=== PATIENT | female | born 1985 | race Caucasian/White ===

== ENCOUNTER → 2022-03-10 13:17 | Outpatient (CLI) | payer OTHER, SELFPAY ==
--- NOTE | 2022-03-10 | DI.MG.S_ITS ---
BILATERAL DIGITAL DIAGNOSTIC MAMMOGRAM 3D/2D: 03/10/2022 CLINICAL: Left breast lump. Baseline. No prior exams were available for comparison. The tissue of both breasts is extremely dense, which lowers the sensitivity of mammography. No significant masses, calcifications, or other findings are seen in either breast. IMPRESSION: INCOMPLETE: NEEDS ADDITIONAL IMAGING EVALUATION There is no abnormality seen in the right breast to correspond with the palpable abnormality and discharge from the nipple. Ultrasound to follow. Based on the Tyrer Cuzick model (a risk assessment model) the patient's lifetime risk is 9.4% and her 10 year risk is 0.8%. According to the ACR, ACS, and NCCN guidelines, an annual breast MRI exam along with mammogram is recommended if the patient's lifetime risk is 20% or greater. This exam was interpreted at Station ID: [id number]. NOTE: For mammograms, a report in lay terms will be sent to the patient. Approximately 15% of breast malignancies will not be visualized mammographically. In the management of a palpable breast mass, a negative mammogram must not discourage biopsy of a clinically suspicious lesion. Electronically Signed By: Joel Kulkarni M.D. lc/:03/10/2022 14:37:28 ACR BI-RADS Category 0: Incomplete [id number]
--- NOTE | 2022-03-10 | DI.US.S_ITS ---
ULTRASOUND OF LEFT BREAST: 03/10/2022 CLINICAL: Palpable left breast lump. Comparison is made to exam dated: 03/10/2022 mammogram - [facility]. Real-time and Doppler ultrasound of the left breast were performed. Easton scale images of the real-time examination were reviewed. Mildly dilated ducts are seen at the 9:00 position 1cm from nipple. IMPRESSION: BENIGN There is no sonographic evidence of malignancy. There is no abnormality seen in the left breast to correspond with the palpable abnormality. Mildly dilated ducts are seen at the 9:00 position 1cm from nipple. However, clinical correlation and clinical followup are recommended. Return to annual screening schedule is recommended at appropriate age. This exam was interpreted at Station ID: [id number]. Electronically Signed By: Joel Kulkarni M.D. lc/:03/10/2022 14:42:28 letter sent: Clinical Evaluation Ultrasound BI-RADS: 2 Benign
== END ==
PROVIDERS: PCP Physician Assistant Medical; Referring Provider Physician Assistant Medical; Visit Provider Physician Assistant Medical
DX: N63.42 Unspecified lump in left breast, subareolar (principal); R92.2 Inconclusive mammogram; N60.42 Mammary duct ectasia of left breast
CPT/HCPCS: 76642; 77066; G0279

== ENCOUNTER → 2024-04-05 11:09 | Outpatient (CLI) | payer OTHER, SELFPAY ==
[2024-04-05 12:38] LABS: Add Manual Diff / Slide Review NO; Basophils Absolute Auto 0 /uL (0-100); Basophils Percent Auto 0.4 % (0-2); Eosinophils Absolute Auto 100 /uL (0-450); Eosinophils Percent Auto 0.6 % (2-4); Hematocrit 36.2 % (36-46); Hemoglobin 12.2 g/dL (12.0-16.0); Lymphocytes Absolute Auto 1100 /uL (1100-4500); Lymphocytes Percent Auto 10.3 % (25-40); Mean Corpuscular HGB Conc 33.8 % (30-36); Monocytes Absolute Auto 600 /uL (0-900); Monocytes Percent Auto 5.2 % (3-14); Neutrophils Absolute Auto 9200 /uL (1500-7000); Neutrophils Percent Auto 83.5 % (50-75); Platelet Count 379 X10^3/uL (150-400); Red Blood Cell Count 4.21 X10^6/uL (4.0-5.2)
[2024-04-05 13:10] LABS: Appearance Urine UA CLEAR; Bilirubin Urine UA NEGATIVE (NEGATIVE); Color Urine UA YELLOW; Glucose Urine UA NEGATIVE (Negative); Ketones Urine UA NEGATIVE (NEGATIVE); Leukocyte Esterase Urine UA NEGATIVE (NEGATIVE); Nitrite Urine UA NEGATIVE (Negative); Occult Blood Urine UA TRACE-INTACT (Negative); Protein Urine UA NEGATIVE (Negative); Specific Gravity Urine UA <=1.005 (1.000-1.035); Urobilinogen Urine UA 0.2 E.U./dL (0.2)
[2024-04-05 13:14] LABS: pH Urine UA 6.5 (4.5-8.0)
[2024-04-06 06:36] LABS: RPR Screen Non Reactive (Non Reactive)
== END ==
PROVIDERS: Referring Provider Family Medicine; Visit Provider Family Medicine
DX: Z34.80 Encounter for supervision of other normal pregnancy, unspecified trimester (principal)
CPT/HCPCS: 36415; 80055; 81003; 86787; 86803; 86850; 86900; 86901; 87086; 87389

== ENCOUNTER → 2024-04-05 14:17 | Outpatient (CLI) | payer OTHER, SELFPAY ==
--- NOTE | 2024-04-05 14:18 | DI.US.S_ITS ---
PROCEDURE: US OB LIMITED INDICATIONS: VAGINAL BLEEDING - ASSESS PLACENTAL LOCATION AND FIBROID. OUTSIDE/PRIOR DATING DATA: Last menstrual period (LMP): 01/01/2024. LMP-based estimated date of delivery (ASTRID): 10/07/2024. First dating scan (date and location): 02/28/2024. Estimated date of delivery (ASTRID) from first dating scan: 10/03/2024 The calculations are made using the clinical ASTRID of 10/07/2024. TECHNIQUE: Real-time scanning was performed of the fetus, with image documentation. Endovaginal scanning: Not performed COMPARISON: None. FINDINGS: A single living intrauterine gestation is present. Presentation: Variable. Placenta: Placental position is posterior, low lying, 0.4 cm from the internal os. Amniotic fluid index: Subjectively normal. heart rate: 149 beats per minute. Maternal cervical canal: 3.8 cm long. Normal lower limit is 2.5 cm. Clinically estimated gestational age: 13 weeks 4 days Estimated gestational age from initial scan: 14 weeks 5 days. Other: Posterior intramural fibroid measuring 6.2 x 5.4 x 5.0 cm. Small subchorionic hemorrhage at fundus measuring 3.8 x 2.2 x 1.4 cm. IMPRESSION: Single living intrauterine at 13 weeks 4 days, ASTRID of 10/07/2024. Small subchorionic hemorrhage at the fundus measuring 3.8 x 2.2 x 1.4 cm. Posterior intramural fibroid measuring 6.2 x 5.4 x 5.0 cm. Low lying placenta. Attention on follow-up. Dictated by: Marc Schwab M.D. on 04/05/2024 at 16:42 Approved by: Marc Schwab M.D. on 04/05/2024 at 16:45
== END ==
PROVIDERS: Referring Provider Family Medicine; Visit Provider Family Medicine
DX: Z34.80 Encounter for supervision of other normal pregnancy, unspecified trimester (principal); D25.1 Intramural leiomyoma of uterus; Z3A.13 13 weeks gestation of pregnancy
CPT/HCPCS: 36415; 76815; 80055; 81003; 86787; 86803; 86850; 86900; 86901; 87086; 87389

== ENCOUNTER → 2024-05-30 11:06 | Outpatient (CLI) | payer OTHER, SELFPAY ==
--- NOTE | 2024-05-30 11:07 | DI.US.S_ITS ---
PROCEDURE: US OB >= 14 WEEKS FETUS INDICATIONS: anatomy OUTSIDE/PRIOR DATING DATA: Last menstrual period (LMP): 01/01/2024. LMP-based estimated date of delivery (ASTRID): 10/07/2024. First dating scan (date and location): 02/28/2024. Estimated date of delivery (ASTRID) from first dating scan: 10/03/2024. The calculations are made using the clinical ASTRID of 10/07/2024. TECHNIQUE: Real-time scanning was performed of the fetus, with image documentation and biometric measurements. Endovaginal scanning: Not performed COMPARISON: [facility], OB LIMITED, 04/05/2024, 14:34. FINDINGS: General: A single living intrauterine gestation is present. Presentation: Breech. Placenta: Placental position is posterior, without previa. Amniotic fluid index: 13.6 cm, normal range is 5-24 cm. Single deepest vertical pocket is 5.1 cm. heart rate: 139 beats per minute. Maternal cervical canal: 6.2 cm long. Normal lower limit is 2.5 cm. Posterior intramural fibroid measuring 5.2 x 5.1 x 4.1 cm. biometrics: Biparietal diameter: 5.0 cm, 21 weeks 1 day Head circumference: 19.2 cm, 21 weeks 3 days Abdominal circumference: 18.2 cm, 23 weeks 0 days Femur length: 3.9 cm, 22 weeks 2 days Clinically estimated gestational age: 21 weeks 3 days Composite gestational age from present scan: 22 weeks 0 days Estimated weight and percentile: 511 g, 93rd percentile. Anatomic survey: Neuro: Ventricles are non-dilated at less than 10 mm. Cisterna magna is normal at 3-11 mm. Cerebellum is normal in size and morphology. Nuchal skin fold: Normal at less than 6 mm between 14-21 weeks gestational age. Face: Nose and lips are normal. Facial profile is not well seen. Spine: No evidence for spina bifida. Heart: 4-chambered heart is present, LVOT is normal. RVOT is not well seen. Diaphragm: Diaphragm is intact. Stomach: Left-sided stomach is present. Kidneys: No hydronephrosis. Normal is less than 5 mm in 2nd trimester, less than 7 mm in 3rd trimester. Cord: 3-vessel cord has orthotopic insertion. Bladder: Normal in size. Extremities: All 4 extremities identified. Gender is not well seen. IMPRESSION: 1. [place] living intrauterine at 22 weeks 0 days based on today's ultrasound. This is concordant with the prior dating. Fetus is in the 93rd percentile for weight. 2. Normal placenta and amniotic fluid. 3. profile and RVOT are not well seen. Otherwise normal anatomic survey. Recommend follow-up OB ultrasound. We strive to produce accurate, complete, and clear reports of imaging services. To assist us in improving patient care, this report was composed using standard report templates and voice recognition software. Therefore, it may contain abnormal punctuation, insertions and/or omissions. Occasional wrong-word or sound-alike substitutions may occur. Though we review the report and make efforts to correct it, we do recommend that the report be read carefully in proper context to recognize any text inaccuracies. Dictated by: Waldo Licea M.D. on 05/30/2024 at 15:39 Approved by: Waldo Licea M.D. on 05/30/2024 at 15:45
== END ==
PROVIDERS: Referring Provider Family Medicine; Visit Provider Family Medicine
DX: Z34.82 Encounter for supervision of other normal pregnancy, second trimester (principal); Z3A.22 22 weeks gestation of pregnancy
CPT/HCPCS: 76811

== ENCOUNTER → 2024-06-07 09:51 | Outpatient (CLI) | payer OTHER, SELFPAY ==
[2024-06-07 12:30] LABS: GTT (PREG) 1 Hour PP 50gm Dose 132 mg/dL (76-139)
== END ==
PROVIDERS: Referring Provider Family Medicine; Visit Provider Family Medicine
DX: Z34.82 Encounter for supervision of other normal pregnancy, second trimester (principal); Z3A.22 22 weeks gestation of pregnancy
CPT/HCPCS: 36415; 82950

== ENCOUNTER → 2024-07-12 09:45 | Outpatient (CLI) | payer OTHER, SELFPAY ==
--- NOTE | 2024-07-12 09:45 | DI.US.S_ITS ---
PROCEDURE: US OB FOLLOW UP INDICATIONS: FOLLOW UP OUTSIDE/PRIOR DATING DATA: Last menstrual period (LMP): 01/01/2024 LMP-based estimated date of delivery (ASTRID): 10/07/2024 First dating scan (date and location): 02/28/2024 Estimated date of delivery (ASTRID) from first dating scan: 10/03/2024 The calculations are made using the working ASTRID of 10/07/2024 TECHNIQUE: Real-time scanning was performed of the fetus, with image documentation. Endovaginal scanning: Not performed COMPARISON: 04/05/2024, 05/30/2024. FINDINGS: A single living intrauterine gestation is present. Presentation: Breech Placenta: Placental position is posterior, without previa. Amniotic fluid index: 12.7 cm, normal range is 5-24 cm. Single deepest vertical pocket is 3.8 cm. heart rate: 126 beats per minute. Maternal cervical canal: Is closed and measures 4.7 cm long. Normal lower limit is 2.5 cm. Clinically estimated gestational age: 27 weeks, 4 days. There is a retroplacental intramural fibroid in posterior myometrium measures 5.5 x 4 x 4 cm in size compared to 5.2 x 5.1 x 4.2 cm in size on previous study. facial profile, four-chamber heart and left ventricular outflow tracts are visualized and are within normal limits. Right ventricular outflow tract is suboptimally seen and grossly within normal limits. IMPRESSION: 1. Single live intrauterine gestation with fetus in breech presentation. heart rate is 126 beats per minute. Normal REBA at 12.7 cm. 2. Placenta position is posterior, no placenta previa. Retroplacental intramural fibroid as above. 3. facial profile, four-chamber heart and left ventricular outflow tracts are visualized and are within normal limits. Suboptimal evaluation of right ventricular outflow tract without gross abnormality seen. Dictated by: Cesar Mccormick M.D. on 07/12/2024 at 13:23 Approved by: Cesar Mccormick M.D. on 07/12/2024 at 13:26
== END ==
PROVIDERS: Referring Provider Family Medicine; Visit Provider Family Medicine
DX: O32.1XX0 Maternal care for breech presentation, not applicable or unspecified (principal); Z3A.27 27 weeks gestation of pregnancy
CPT/HCPCS: 76816

== ENCOUNTER → 2024-08-23 11:56 | Outpatient (CLI) | payer OTHER, SELFPAY ==
--- NOTE | 2024-08-23 11:57 | DI.US.S_ITS ---
PROCEDURE: US OB FOLLOW UP INDICATIONS: growth follow up LGA OUTSIDE/PRIOR DATING DATA: The calculations are made using the working ASTRID of 10/07/2024. TECHNIQUE: Real-time scanning was performed of the fetus, with image documentation and biometric measurements. Endovaginal scanning: Performed COMPARISON: [facility], OB FOLLOW UP, 07/12/2024, 9:56. FINDINGS: General: A single living intrauterine gestation is present. Presentation: Vertex. Placenta: Placental position is posterior , without previa Amniotic fluid index: 13.3 cm, normal range is 5-24 cm. Single deepest vertical pocket is 4.5 cm. heart rate: 137 beats per minute. Maternal cervical canal: 2.3 cm long. Normal lower limit is 2.5 cm. No funneling. biometrics: Biparietal diameter: 8.5 cm, 34 weeks 3 days Head circumference: 31.3 cm, 35 weeks 1 day Abdominal circumference: 30.9 cm, 34 weeks 6 days Femur length: 6.5 cm, 33 weeks 2 days Clinically estimated gestational age: 33 weeks 4 days Composite gestational age from present scan: 34 weeks 3 days Estimated weight and percentile: 2428 g, 69th percentile Other: Not applicable. IMPRESSION: Single living intrauterine at thirty-three weeks 4 days, ASTRID 10/07/2024. Estimated weight 2428 g, 69th percentile. The cervix measures 2.3 cm, abnormal, previously 4.7 cm. No funneling of the internal os. We strive to produce accurate, complete, and clear reports of imaging services. To assist us in improving patient care, this report was composed using standard report templates and voice recognition software. Therefore, it may contain abnormal punctuation, insertions and/or omissions. Occasional wrong-word or sound-alike substitutions may occur. Though we review the report and make efforts to correct it, we do recommend that the report be read carefully in proper context to recognize any text inaccuracies. Dictated by: Marc Schwab M.D. on 08/23/2024 at 13:17 Approved by: Marc Schwab M.D. on 08/23/2024 at 13:24
== END ==
PROVIDERS: PCP Family Medicine; Referring Provider Family Medicine; Visit Provider Family Medicine
DX: O36.63X0 Maternal care for excessive fetal growth, third trimester, not applicable or unspecified (principal); Z3A.34 34 weeks gestation of pregnancy
CPT/HCPCS: 76816; 76817

== ENCOUNTER 2024-08-23 13:32 | Outpatient (CLI) | payer OTHER, SELFPAY ==
--- NOTE | 2024-08-23 14:17 | PM.OBTRLD ---
Visit Information Visit Information Date of evaluation: 08/23/24 Primary OB Provider: Beatriz Real Comments/Additional reasons for admission: 39yo at 33w4d here for NST due to shortened cervical length found incidentally on f/u u/s. Pt denies any contractions, vaginal bleeding. She is feeling baby move regularly. [facility] Medical History Cervical dysplasia Migraine with aura Meningitis spinal Surgical History History of gynecological procedure (~2010) History of oral surgery Family History Mother Substance abuse COPD (chronic obstructive pulmonary disease) Collapsed lung Broken heart syndrome Father Family estrangement Brother Rheumatoid arthritis Grandfather Skin cancer Grandmother Stroke Heart attack Sister Cervical cancer Asthma Social History marital status: unmarried,living together number of children: 1 household members: significant other lives independently: Yes caregiver/support person: Yes housing: house pets and animals: Yes (2 cats, 2 dogs) education level: high school occupational status: employed current occupational exposures/hazards: No special daniel needs: No travel history: over 6 months ago seatbelt use: always water heater temp set < 120 deg: Yes working smoke detector in home: Yes fire extinguisher in home: Yes carbon monox detector in home: Yes firearms in home: No do you feel safe at home: Yes Smoking Status: Current every day smoker Tobacco: How many years used: 21 second hand exposure: Yes (s/o smokes outdoors) alcohol intake: former substance use type: does not use during the past year weight has: increased > 10 lbs well-balanced diet: rarely or never daily servings fruits/ve-1 caffeine: Yes (aware of limits; has mostly been drinking decaf since ) Type(s) of exercise: none additional social history: Patient is still legally , although and actively seeking divorce, has a restraining order in place against her soon-to-be ex- Scooter. 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 Evaluation Evaluation Baseline heart rate: 135 Variability: Moderate (11-25) monitor accelerations: Present Monitor Decelerations: Absent Category of Tracing: Reactive Comments: No contractions Diagnosis, Plan/Disposition Final Diagnosis (1) Antepartum cervical shortening: Status: Acute Plan/Disposition Plan: 39yo at 33w4d here for NST due to shortened cervical length found incidentally on f/u u/s. Cervical length 2.3. Discussed with pt risks of shortened cervix. Recommend decreasing work activity significantly. Pt without any contractions on monitoring. Not feeling any either. Will hold off on steroids for now, plan repeat cervical length in 1 week. F/U next week in clinic. If any cramping/contractions, pt to be evaluated. OB Disposition: home
[2024-08-23 14:37] VITALS: BP 107/66
== END 2024-08-23 14:44 | disposition home or self-care (01) ==
LOC: LABOR 14:43 → OB 08-26 11:20
PROVIDERS: PCP Family Medicine; Referring Provider Family Medicine; Visit Provider Family Medicine
DX: O26.873 Cervical shortening, third trimester (principal); O36.63X0 Maternal care for excessive fetal growth, third trimester, not applicable or unspecified; Z3A.33 33 weeks gestation of pregnancy
CPT/HCPCS: 59025; 76816; 76817; G0378; G0379

== ENCOUNTER → 2024-08-30 10:17 | Outpatient (CLI) | payer OTHER, SELFPAY ==
--- NOTE | 2024-08-30 10:17 | DI.US.S_ITS ---
PROCEDURE: US OB FOLLOW UP INDICATIONS: CERVICAL LENGTH OUTSIDE/PRIOR DATING DATA: The calculations are made using the working ASTRID of 10/07/2024. TECHNIQUE: Real-time scanning was performed of the fetus, with image documentation. Endovaginal scanning: Performed COMPARISON: [facility], , OB FOLLOW UP, 08/23/2024, 12:23. FINDINGS: A single living intrauterine gestation is present. Presentation: Vertex. Placenta: Placental position is posterior, without previa. Amniotic fluid index: 13.9 cm, normal range is 5-24 cm. Single deepest vertical pocket is 6.1 cm. heart rate: 125 beats per minute. Maternal cervical canal: 1.5 cm long. Normal lower limit is 2.5 cm. Early funneling noted. Clinically estimated gestational age: 34 weeks 4 days IMPRESSION: Cervix measures 1.5 cm, with early funneling with a v-shape of the internal os. This previously measured 1.5 cm on 08/23/2024. Dictated by: Marc Schwab M.D. on 08/30/2024 at 14:47 Approved by: Marc Schwab M.D. on 08/30/2024 at 14:48
== END ==
PROVIDERS: PCP Family Medicine; Referring Provider Family Medicine; Visit Provider Family Medicine
DX: Z34.83 Encounter for supervision of other normal pregnancy, third trimester (principal); Z3A.34 34 weeks gestation of pregnancy
CPT/HCPCS: 76816

== ENCOUNTER 2024-08-30 14:07 | Outpatient (CLI) | payer OTHER, SELFPAY ==
--- NOTE | 2024-08-30 15:25 | PM.OBTRLD ---
Visit Information Visit Information Date of evaluation: 08/30/24 Primary OB Provider: Beatriz Real Comments/Additional reasons for admission: 39yo at 34w4d here for NST due to shortened cervical length. Last week 2.7, today 1.5 with minimal funneling. Pt denies any contractions, vaginal bleeding. She is feeling baby move regularly. [facility] Medical History Cervical dysplasia Migraine with aura Meningitis spinal Surgical History History of gynecological procedure (~2010) History of oral surgery Family History Mother Substance abuse COPD (chronic obstructive pulmonary disease) Collapsed lung Broken heart syndrome Father Family estrangement Brother Rheumatoid arthritis Grandfather Skin cancer Grandmother Stroke Heart attack Sister Cervical cancer Asthma Social History marital status: unmarried,living together number of children: 1 household members: significant other lives independently: Yes caregiver/support person: Yes housing: house pets and animals: Yes (2 cats, 2 dogs) education level: high school occupational status: employed current occupational exposures/hazards: No special daniel needs: No travel history: over 6 months ago seatbelt use: always water heater temp set < 120 deg: Yes working smoke detector in home: Yes fire extinguisher in home: Yes carbon monox detector in home: Yes firearms in home: No do you feel safe at home: Yes Smoking Status: Current every day smoker Tobacco: How many years used: 21 second hand exposure: Yes (s/o smokes outdoors) alcohol intake: former substance use type: does not use during the past year weight has: increased > 10 lbs well-balanced diet: rarely or never daily servings fruits/ve-1 caffeine: Yes (aware of limits; has mostly been drinking decaf since ) Type(s) of exercise: none additional social history: Patient is still legally , although and actively seeking divorce, has a restraining order in place against her soon-to-be ex- Nathan. 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 Evaluation Evaluation Baseline heart rate: 120 Variability: Moderate (11-25) monitor accelerations: Present Monitor Decelerations: Absent Category of Tracing: Reactive Diagnosis, Plan/Disposition Final Diagnosis (1) Antepartum cervical shortening: Status: Acute Plan/Disposition Plan: 39yo at 34w4d here for NST due to shortened cervical length. Cervical length now 1.5. No signs/symptoms of labor. No contractions on monitoring. FFN negative. Betamethasone x 1 given today. Pt to return in 24hrs for repeat dosing. OB Disposition: home
[2024-08-30] MEDS: BETAMETHASONE 30 MG/5 ML MDV 12 MG IM (15:50)
[2024-08-30 17:53] LABS: Fetal Fibronectin Negative
[2024-08-31 12:00] LABS: Strep Grp B PCR NEG for Grp B Strep
== END 2024-08-30 16:00 | disposition home or self-care (01) ==
LOC: LABOR 14:39 → OB 16:12
PROVIDERS: PCP Family Medicine; Referring Provider Family Medicine; Visit Provider Family Medicine
DX: O26.873 Cervical shortening, third trimester (principal); Z3A.34 34 weeks gestation of pregnancy
CPT/HCPCS: 59025; 76816; 82731; 87653; 96372; G0378; G0379; J0702

== ENCOUNTER 2024-08-31 13:48 | Outpatient (CLI) | payer OTHER, SELFPAY ==
[2024-08-31] MEDS: BETAMETHASONE 30 MG/5 ML MDV 12 MG IM (15:25)
== END 2024-08-31 15:28 | disposition home or self-care (01) ==
LOC: OB 09-04 09:31
PROVIDERS: PCP Family Medicine; Referring Provider Family Medicine; Visit Provider Student in an Organized Health Care Education/Training Program
DX: O09.523 Supervision of elderly multigravida, third trimester (principal); O99.333 Smoking (tobacco) complicating pregnancy, third trimester; F17.200 Nicotine dependence, unspecified, uncomplicated; Z3A.34 34 weeks gestation of pregnancy
CPT/HCPCS: 96372; G0378; G0379; J0702

== ENCOUNTER 2024-09-18 22:13 | Inpatient (IN) | payer OTHER, SELFPAY ==
[2024-09-18 23:38] VITALS: BP 125/73
[2024-09-18 23:53] LABS: Add Manual Diff / Slide Review NO; Basophils Absolute Auto 0 /uL (0-100); Basophils Percent Auto 0.3 % (0-2); Eosinophils Absolute Auto 100 /uL (0-450); Eosinophils Percent Auto 0.6 % (2-4); Hematocrit 37.4 % (36-46); Hemoglobin 12.4 g/dL (12.0-16.0); Lymphocytes Absolute Auto 1500 /uL (1100-4500); Lymphocytes Percent Auto 13.5 % (25-40); Mean Corpuscular HGB Conc 33.1 % (30-36); Mean Corpuscular Hemoglobin 27.2 PG (26-34); Mean Corpuscular Volume 82.2 fL (80-100); Monocytes Absolute Auto 900 /uL (0-900); Monocytes Percent Auto 7.8 % (3-14); Neutrophils Absolute Auto 8800 /uL (1500-7000); Neutrophils Percent Auto 77.8 % (50-75); Platelet Count 221 X10^3/uL (150-400); Red Blood Cell Count 4.56 X10^6/uL (4.0-5.2); Red Cell Distribution Width 14.6 % (11.6-14.8); White Blood Cell Count 11.3 X10^3/uL (4.5-11.0)
[2024-09-19] VITALS (9 sets, daily range): BP systolic 86–161; BP diastolic 55–91; PULSE 99–148; RESP 10–24; TEMP 35.8–37; O2SAT 96–98
--- NOTE | 2024-09-19 | PATH_ITS ---
[facility] Accession Number: [id number] No. of containers..01 Tissue . 01 Material submitted: . placenta - PLACENTA . 01 Diagnosis: PLACENTA: Disrupted james placenta with features of maturation consistent with third trimester gestational age. Weight: 336 grams, less than 10th percentile for gestational age of 37 weeks 2 days. membranes with acute inflammation consistent with acute chorioamnionitis (stage 2 of maternal inflammatory response DEMETRIUS), no evidence of meconium. Three vessel umbilical cord; no phlebitis, arteritis, funisitis, true knots or thrombi. Placental parenchyma with adherent blood clot. See comment. No evidence of acute or chronic villitis and infarcts. MRV 09/25/2024 1459 Local . 01 Comment: The completeness of the placenta cannot be determined. Histologic features suggestive of abruption are identified. Clinical correlation is recommended. . Please see patient's concurrent pathology report of membranes (path accession# [id number]) for additional information. . 01 Electronically signed: . Stephanie Montalvo MD, Pathologist NPI- [id number] . 01 Gross description: . Received in formalin with two patient identifiers and no site on jar, is a fragmented placenta (336 grams, 15.2 x 14.5 x 5.9 cm in aggregate). . A small amount of identifiable membranes are guzman and translucent with no thickening identified. The membrane insertion cannot be definitively determined. . The cord is 43.8 cm in length by 1.0 cm in diameter with a leftward coil and an index of approximately 2 twists per 5 cm. Definitive cord insertion cannot be determined, and sectioning reveals unremarkable trivascular architecture with no knots or lesions identified. . The surface is blue-delong with no lesions identified. . Completeness of the maternal surface cannot be determined. No discoloration or lesions are identified. The cut surface is red and spongy, and diffusely gritty. No lesions are identified. [employer] sections are submitted as follows: . A1: Membrane roll and placental end of cord. A2: Membrane roll and end of cord. A3-A5: Presumed full-thickness sections. ([id number]) /MRV 09/20/2024 1310 Local . 01 Pathologist provided ICD-10: O41.1230 . 01 CPT . 065560 Specimen Comment: A courtesy copy of this report has been sent to [phone] Performed at: [address] [address], [place], [place] [id number] MD Davion Munroe MD Phone: [phone]
[2024-09-19] MEDS: LACTATED RINGERS 1,000 ML 100 ML IV (01:28)
[2024-09-19] MEDS: CALCIUM CARBONATE 500 MG TAB 1000 MG PO (02:25)
--- NOTE | 2024-09-19 03:57 | PM.AN.REGBLK ---
[facility] <Armin Ortez CRNA - Last Filed: 09/19/24 05:42> Pre-procedure Procedure: Continuous Lumbar Epidural for L&D Attending OB provider: Beatriz Real PMH/ROS narrative: requests epidural for labor pain PSH/Anesthesia history narrative: Negative Exam narrative: See pre-anesthesia evaluation ASA Class: II Labs: Hct 37.4 % (36-46) 09/18/24 23:20 Plt Count 221 X10^3/uL (150-400) 09/18/24 23:20 Medications: Current Medications Generic Name Dose Route Start Last Admin Trade Name Freq PRN Reason Stop Dose Admin Calcium Carbonate 1,000 mg 09/18/24 23:29 09/19/24 02:25 Calcium Carbonate 500 Mg Tab PO 1,000 mg Q2HR PRN Administration Dyspepsia Carboprost Tromethamine 250 mcg 09/18/24 23:29 Carboprost 250 Mcg/Ml Ampul IM Q90M PRN Bleeding Diphenhydramine HCl 25 mg 09/19/24 03:30 Diphenhydramine 50 Mg/Ml Vial IV Q10M PRN Pruritis Ephedrine Sulfate 10 mg 09/19/24 03:30 Ephedrine 50 Mg/Ml Vial IV Q5M PRN Blood pressure decrease more than 20% of baseline. Fentanyl 50 mcg 09/18/24 23:29 Fentanyl 100 Mcg/2 Ml Inj IV Q1H PRN Pain, Moderate (4-6) Lactated Ringer's 1,000 mls @ 100 mls/hr 09/18/24 23:30 09/19/24 01:28 Lactated Ringers IV 09/19/24 09:29 100 mls/hr CONT FAUSTINO Administration Oxytocin/Lactated Ringer's 30 unit in 500 mls @ 200 mls/hr 09/18/24 23:29 Oxytocin Premix IV CONT PRN Bleeding Protocol Tranexamic Acid 1,000 mg/ 100 mls @ 600 mls/hr 09/18/24 23:29 Sodium Chloride IV NOW PRN Bleeding Oxytocin/Lactated Ringer's 30 unit in 500 mls @ 2 mls/hr 09/18/24 23:30 Oxytocin Premix IV TITRATE FAUSTINO Protocol 2 MILLIUNIT/MIN FENT 2MCG/ML BUPIV 0.125% EPI 200 mcg in 100 mls @ 8 mls/hr 09/19/24 03:30 Fentanyl/Bupiv/Ns 2mcg/Ml - 0.125% EPIDURAL CONT FAUSTINO Lactated Ringer's 1,000 mls @ 1,000 mls/hr 09/19/24 03:30 Lactated Ringers IV 09/19/24 04:29 BOLUS ONE Lidocaine HCl 20 ml 09/18/24 23:29 Lidocaine 1% 20 Ml INJ INTRA-OP PRN Post Delivery Methylergonovine Maleate 0.2 mg 09/18/24 23:29 Methylergonovine 0.2 Mg Tablet PO Q6HR PRN Heavy Bleeding Methylergonovine Maleate 0.2 mg 09/18/24 23:29 Methylergonovine 0.2 Mg/Ml Vial IM NOW PRN Bleeding Mineral Oil 30 ml 09/18/24 23:29 Mineral Oil 30 Ml Udc TOP PRN PRN Version Misoprostol 800 mcg 09/18/24 23:29 Misoprostol 200 Mcg Tablet KS NOW PRN Bleeding Misoprostol 400 mcg 09/18/24 23:29 Misoprostol 200 Mcg Tablet SL NOW PRN Bleeding Nalbuphine HCl 2.5 mg 09/19/24 03:30 Nalbuphine 20 Mg/Ml Ampul IV Q10M PRN Pruritis Naloxone HCl 0.2 mg 09/18/24 23:29 Naloxone 0.4 Mg/Ml Vial IV Q2MIN PRN Opiate Reversal Ondansetron HCl 4 mg 09/18/24 23:29 Ondansetron 4 Mg/2 Ml Inj IV Q4HR PRN Nausea And Vomiting Oxytocin 10 unit 09/18/24 23:29 Oxytocin 10 Unit/Ml Vial IM NOW PRN Bleeding Allergies: Allergies Allergy/AdvReac Type Severity Reaction Status Date / Time amoxicillin Allergy Mild Rash Verified 09/13/24 10:33 suture Allergy Intermediate Uncoded 09/13/24 10:33 Procedure Insertion date: 09/19/24 Insertion time: 02:47 Prep/Local: 1% lidocaine (Chlorhexadine prep) Interspace: L3-L4 Patient position: sitting Needle: 17 gauge Tuohy (27 gauge pencil point spinal needle for CSE) Loss of resistance with: saline AMANDA at (cm): 7 Catheter placed at SKIN (cm): 16 Catheter in SPACE (cm): 9 Sensory level: T8 Insertion: Yes CSF, No Blood, No Paresthesia with insertion, No Paresthesia with injection and No Test dose reaction Initial Medications TEST DOSE time: 02:53 BOLUS DOSE time: 02:50 BOLUS DOSE (mL): 2 BOLUS DOSE med: other (50mcg fentanyl & 0.25% bupivacaine 1ml intrathecal, then 50mcg fentanyl epidural at 0255) Infusion INFUSION: 0.125% bupivacaine and with fentanyl 2 mcg/mL Initial rate (mL/hr): 8 Subsequent interventions: Increased rate to 10ml//hr at 05:42 as patient c/o increased pain and pressure. Clinician bolus of 5ml given as well as PCEA dose of 5ml. Post-procedure Anesthesia date START: 09/19/24 Anesthesia time START: 02:40 <Monserrat Hayes CRNA - Last Filed: 09/19/24 14:23> Infusion Subsequent interventions: Increased rate to 10ml//hr at 05:42 as patient c/o increased pain and pressure. Clinician bolus of 5ml given as well as PCEA dose of 5ml. OB MD at bedside in PACU, post D&C, revealed patient was at 3.3l EBL with this PPH. Stated she was going to order 2U PRBCs. Oxytocin gtt infusing at 100cc/hr, hemabate IM given. Patient had 1 dose of TXA pre-operatively in OB, surgeon declined another dose of TXA. Patient tachycardic, stable BP, vomiting in PACU. Antiemetics ordered. Post-procedure Anesthesia date END: 09/19/24 Anesthesia time END: 12:45 Post-procedure Anesthesia Assessment: Yes Resp function: RR/sat/airway adequate, Yes Pain control adequate, Yes Temperature > 36 C and Yes Mental status appropriate
[2024-09-19] MEDS: FAMOTIDINE 20 MG/2 ML VIAL IV (06:56)
--- NOTE | 2024-09-19 08:48 | PM.OBHP.IH.1 ---
OB HPI Date/Time Date of admission: 09/18/24 Date Patient Seen: 09/19/24 Time Patient Seen: 08:30 History of Present Condition Chief complaint: Observation ASTRID Calculator Estimated Delivery Date Method Current WG Current Estimate 10/07/24 LMP (Certain) 37w 3d Other Estimates 10/03/24 Ultrasound #1 38w 0d Estimated Gestational Age (weeks): 37w3d : 5 Para: 2 Narrative: 39yo at 37w3d here with PROM, then converted into active labor without medications. Pt reports feeling a gush of fluid around 6:30pm on 09/18. She denies any vaginal bleeding. She is feeling her baby move regularly. The pts was complicated by shortened cervix found at 34 weeks incidentally. She received Betamethasone x2. No other complications with . care: good care, initiated at week # (8) and pounds weight gain (24) Dating criteria OB: LMP confirmed by 1st trimester US Ultrasounds: normal 1st trimester US and normal mid trimester US Obstetrical complications: other (shortened cervix) Medical complications OB: none Preadmission Labs Last OB Lab Results: Blood Type O Positive 09/18/24 23:20 Antibody Screen Negative 09/18/24 23:20 Hct 37.4 % (36-46) 09/18/24 23:20 Hgb 12.4 g/dL (12.0-16.0) 09/18/24 23:20 Hep Bs Antigen Negative s/c (NEGATIVE) 04/05/24 11:18 Hepatitis C Antibody Negative s/c (NEGATIVE) 04/05/24 11:18 Rubella Antibody 5.9 IU/mL (>15) L 04/05/24 11:18 VZV IgG Antibody <135 index (Immune >165) L 04/05/24 11:18 Glucose 1 Hr 50 gm 132 mg/dL (76-139) 06/07/24 11:19 Group B Strep (PCR) Neg for grp b strep 08/30/24 15:44 -: Urine: negative Genetic Screens: Cell-free DNA: Normal External Labs -: Urine: negative Prior (ies) Past Pregnancies Del. Date GA/Weeks Labor Lgth Wt Sex Route Outcome Anesthesia Place Delv Breastfeed Preg Comp Name 09/19/02 39.6 10 8 lb 13 oz Male vaginal live - full term epidural [facility] 6 months anomaly macrosomia Mariano 02/10/05 40.3 3 8 lb 2 oz Female vaginal live - full term epidural [facility] 12+ months other Luz Elena 08/07/11 6-8 elective 03/07/21 10 spontaneous Delivery Date: 09/19/02 Last Updated by: Kizzy Epperson RN malformed kidney/ureter Delivery Date: 02/10/05 Last Updated by: Kizzy Epperson RN induction->rapid delivery Delivery Date: 08/07/11 Last Updated by: Kizzy Epperson RN D&C, no complications Delivery Date: 03/07/21 Last Updated by: Kizzy Epperson RN D&C, no complications, appears to have miscarried just prior to planned termination Evaluation Evaluation Baseline heart rate: 130 Variability: Moderate (11-25) monitor accelerations: Present Monitor Decelerations: Absent Contraction Frequency (minutes): 5 Uterine Contraction Intensity: Strong/Firm Status: Category l Dilation (cm): 10 Effacement (%): 100 station: 0 PFSH Medical History Cervical dysplasia Migraine with aura Meningitis spinal Surgical History History of gynecological procedure (~2010) History of oral surgery Family History Mother Substance abuse COPD (chronic obstructive pulmonary disease) Collapsed lung Broken heart syndrome Father Family estrangement Brother Rheumatoid arthritis Grandfather Skin cancer Grandmother Stroke Heart attack Sister Cervical cancer Asthma Social History marital status: unmarried,living together number of children: 1 household members: significant other lives independently: Yes caregiver/support person: Yes housing: house pets and animals: Yes (2 cats, 2 dogs) education level: high school occupational status: employed current occupational exposures/hazards: No special daniel needs: No travel history: over 6 months ago seatbelt use: always water heater temp set < 120 deg: Yes working smoke detector in home: Yes fire extinguisher in home: Yes carbon monox detector in home: Yes firearms in home: No do you feel safe at home: Yes Smoking Status: Current every day smoker Tobacco: How many years used: 21 second hand exposure: Yes (s/o smokes outdoors) alcohol intake: former substance use type: does not use during the past year weight has: increased > 10 lbs well-balanced diet: rarely or never daily servings fruits/ve-1 caffeine: Yes (aware of limits; has mostly been drinking decaf since ) Type(s) of exercise: none additional social history: Patient is still legally , although and actively seeking divorce, has a restraining order in place against her soon-to-be ex- Scooter. Advised pt that she should have a HCPOA form drawn up just in case naming her preferred alternative decision maker so that her would never be called to make decisions for her in an emergency; provided pt with resource for free POA form; she works in a [employer] and can have it notarized at work. Meds Home Medications and Allergies Home Medications Medication Instructions Recorded Confirmed Type vitamin-ferrous sulfate tab PO 02/22/24 09/13/24 History 27 mg iron-folic acid 0.8 mg tablet Allergies Allergy/AdvReac Type Severity Reaction Status Date / Time amoxicillin Allergy Mild Rash Verified 09/13/24 10:33 suture Allergy Intermediate Uncoded 09/13/24 10:33 OB Exam Resp Effort & Inspection: normal respiratory effort Auscultation: clear to auscultation bilaterally Cardio Rate: regular rate Rhythm: regular rhythm Heart Sounds: S1 normal, S2 normal and no murmurs GI Inspection: non-distended Palpation: Yes soft and No tender Presentation: vertex Objective Labs 09/18/24 23:20 Labs: Laboratory Results - last 24 hr 09/18/24 23:20 WBC 11.3 H RBC 4.56 Hgb 12.4 Hct 37.4 MCV 82.2 MCH 27.2 MCHC 33.1 RDW 14.6 Plt Count 221 Neut % (Auto) 77.8 H Lymph % (Auto) 13.5 L [place] % (Auto) 7.8 Eos % (Auto) 0.6 L Baso % (Auto) 0.3 Neut # (Auto) 8800 H Lymph # (Auto) 1500 [place] # (Auto) 900 Eos # (Auto) 100 Baso # (Auto) 0 Blood Type O Positive Antibody Screen Negative Assessment and Plan Assessment and Plan Assessment and Plan narrative: 39yo here at 37w3d with PROM, now in active labor and full dilation. GBS negative, Rh positive. - Expectant management, anticipate - FHT reassuring - GBS negative, no prophylaxis indicated - Epidural in place for pain control - Will initiate pushing now Time-Based Coding :: [TOTAL MINUTES] spent with patient and on the chart (including review of chart, obtaining history, exam, reviewing outside data, placing orders, documenting exam and treatment plan, and counseling patient) on [DATE].
[2024-09-19] MEDS: FENT 2MCG/ML BUPIV 0.125% EPI 200 MCG/100 ML PLAST..BAG 8 MCG EPIDURAL (09:29)
[2024-09-19] MEDS: TRANEXAMIC ACID 1,000 MG in SODIUM CHLORIDE 0.9% 100 ML 600 MG IV (11:21)
[2024-09-19] MEDS: OXYTOCIN PREMIX 30 UNIT/500 ML PLAST..BAG 200 UNIT IV (11:24)
[2024-09-19] MEDS: fentaNYL 100 MCG/2 ML INJ IV (11:25)
[2024-09-19] MEDS: CEFAZOLIN 2 GM/100 ML PREMIX 100 ML IV (11:34)
[2024-09-19] MEDS: METHYLERGONOVINE 0.2 MG/ML VIAL IM (11:40)
--- NOTE | 2024-09-19 11:48 | PM.OBPN.1 ---
Subjective - OB Subjective Interval history: Consultation requested by Dr. Beatriz Real regarding retained placenta for greater than 30 minutes following spontaneous vaginal . Attempts to remove placenta has resulted in fragmentation of the placenta with residual placental material high up in the uterine cavity particularly on the patient's left side. Unable to manually remove in the center therefore will transfer patient to the operating for examination anesthesia suction curettage, and sharp curettage uterus to retained placental tissues. 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 Patient counseled regarding alternatives, risks, benefits, and potential complications associated with suction curettage of the uterus sharp curettage as needed. With full understanding of the above, written consent was executed, signed, witnessed this date Status: Acute Plan day: 0 plan OB: other (To OR for suction/sharp curettage due to retained placental tissues) Time-Based Coding :: 30 minutes spent with patient and on the chart (including review of chart, obtaining history, exam, reviewing outside data, placing orders, documenting exam and treatment plan, and counseling patient) on 09/19/2024.
--- NOTE | 2024-09-19 11:53 | PM.PREOP ---
Pre-operative Note COVID-19 COVID-19 status: Not tested Interval Note History & Physical reviewed/Exam performed by Physician: Yes Changes to H&P: No
[2024-09-19 11:57] LABS: Add Manual Diff / Slide Review NO; Basophils Absolute Auto 200 /uL (0-100); Eosinophils Absolute Auto 0 /uL (0-450); Eosinophils Percent Auto 0.3 % (2-4); Hematocrit 35.9 % (36-46); Hemoglobin 11.8 g/dL (12.0-16.0); Lymphocytes Absolute Auto 1400 /uL (1100-4500); Lymphocytes Percent Auto 8.9 % (25-40); Mean Corpuscular HGB Conc 32.8 % (30-36); Mean Corpuscular Hemoglobin 27.1 PG (26-34); Mean Corpuscular Volume 82.7 fL (80-100); Monocytes Absolute Auto 800 /uL (0-900); Monocytes Percent Auto 5.1 % (3-14); Neutrophils Absolute Auto 13300 /uL (1500-7000); Neutrophils Percent Auto 84.7 % (50-75); Platelet Count 245 X10^3/uL (150-400); Red Blood Cell Count 4.34 X10^6/uL (4.0-5.2); Red Cell Distribution Width 15.1 % (11.6-14.8); White Blood Cell Count 15.7 X10^3/uL (4.5-11.0)
[2024-09-19 12:07] LABS: Prothrombin Time 11.2 SECONDS (9.4-12.5)
--- NOTE | 2024-09-19 12:11 | SUR.OPER ---
Lithotomy on padded OR bed, head on pillow, arms secured on padded arm boards at <90 degrees abduction. Legs secured in padded yellow fins stirrups.
[2024-09-19 12:23] LABS: PTT Partial Thromboplastin Tim 31 SECONDS (25.1-36.5)
[2024-09-19] MEDS: ONDANSETRON 4 MG/2 ML INJ IV (12:43)
--- NOTE | 2024-09-19 12:45 | P.PCNOB_ITS ---
Labor & Delivery Delivery date: 09/19/24 Delivery Time: 10:48 Intrapartal Events: Prolonged 2nd Stage > 2.5 hours Cervical ripening method: none Induction method: none Delivery augmentation: pitocin Delivery monitor: external FHT and external uterine Route of delivery: Episiotomy description: None L&D Laceration Description: None Quantitative Blood Loss: 1,900 Anesthesia Type: Epidural Complications: Retained placenta hemorrhage Narrative: PROCEDURE: at 37w2d presented with PROM and was admitted to Labor and Delivery. ROM occured at 18:30 with clear fluid. She progressed into labor naturally. The patient progressed through the 1st stage over 12 hours. Pain was controlled with an epidural. The patient progressed through the 2nd stage over 3 hours and delivered a viable female infant with APGARs 8/9 at 10:48 via . The cord was cut and clamped after it stopped pulsating. Gentle traction was then applied to the cord, however the placenta did not deliver. After 30 minutes, the placenta was still not produced with gentle cord traction, despite multiple gushes of blood indicating possible separation. The cord could be felt to be avulsing. Manual extraction of the placenta was attempted, however a plane could not be found between the placenta and uterus, and attempts were discontinued. Dr Allen, NUT SORTER, was then consulted. See his note for addition al details. The pt continued to have brisk bleeding throughout the attempted extractions. She was given TXA and Methergine in addition to Pitocin. The pt was transferred to the OR for D&C. Needle and sponge counts were correct.? The vagina was inspected and no items were left in situ. PREPROCEDURE DIAGNOSIS: Intrauterine at 37w3d GBS negative RH positive POSTPROCEDURE DIAGNOSIS: Intrauterine at 37w3d, delivered Same as preprocedure hemorrhage [place] Baby 1: gender: Female Presentation: vertex Position: Right Occiput Anterior Placenta delivery description: Manual Removal and Curettage Cord Vessel Description: 3 Vessels score (1 min): 8 score (5 min): 9 weight: 5 lb 13.37 oz Plan for aftercare: Other (To the OR for D&C)
--- NOTE | 2024-09-19 12:46 | PM.GYNOP.1 ---
Operative Date/Time/Diagnoses Date of procedure: 09/19/24 Time of procedure: 11:30 Pre-op diagnosis: Retained placental tissue following spontaneous vaginal Post-op diagnosis: same Procedure & Clinicians Procedure: Procedures Operation Date: 09/19/24 15:00 Actual Procedure Side Surgeon p Exam Under Anesthesia DIRECTOR OF CREATIVE SERVICES Placenta Extraction Not Applicable Lazaro Allen MD Indications: Alize delivered spontaneously earlier this morning but even after 30 minutes and expectant management along with gentle cord traction, the placenta could not be delivered. Additional attempts to remove the placental tissue resulted in fragmentation of the placenta with some of the fragments unable to be removed vaginally therefore were proceeding to the operating room with plans to perform a suction curettage and sharp curettage as indicated for retained placental tissue following spontaneous vaginal . Surgeon: Lazaro Allen Anesthesia Type: Epidural Operative Notes Findings: The uterus is 18-20 weeks size. It is firm and normal in shape. Exploration of the endometrial cavity with ring forceps produced a small amount of additional placental tissues. Suction curettage produced additional amounts of tissue as did sharp curettage. At the completion of the procedure, the uterus was thoroughly explored manually and found to be empty and free of placental fragments. Closure Type: not applicable Specimen(s): other (Retained placental fragments) Estimated blood loss (mL): 300 Blood products transfused: none Procedure in detail: With the patient under satisfactory spinal block anesthesia in the modified dorsal lithotomy position, the patient was draped for suction curettage and sharp curettage of the uterus. A pre-surgical safety time-out was then taken in accordance with [facility] Main OR protocols. A bivalve speculum was inserted in the vagina and the anterior lip of the cervix was grasped with a ring forcep. The uterus was explored with ring forceps and a small amount of placental tissue/membranes was recovered. Suction curettage with a 12 mm suction curette was performed with production of additional amounts of tissue. Sharp curettage with a large banjo curette was then performed with gentle curettage producing additional amounts of placental fragments and membranes. A 2nd suction was performed followed by a 2nd sharp curettage. A 3rd suction curettage was performed with no additional placental tissue encountered. Manual exploration of the endometrial cavity confirmed that it was empty and free of residual placental fragments. The ring forcep was then removed from the anterior lip of the cervix, the speculum removed from the vagina, and the patient transferred to PACU for a period of observation and recovery after having tolerated the procedure well. Complications: none Post-operative Condition: stable Disposition: PACU Plan for aftercare: IM Hemabate administered. Patient will continue the Pitocin. IM Methergine and TXA had been administered within an hour of the procedure. Serial H&H determinations will be ordered and close observation for hemorrhage maintained.
[2024-09-19] MEDS: ACETAMINOPHEN 325 MG TABLET 650 MG PO ×2 (15:22→20:59)
[2024-09-19] MEDS: DERMOPLAST SPRAY 20% 60 ML 1 SPRAY TOP (15:45)
[2024-09-19] MEDS: WITCH HAZEL/GLYCERIN PADS 1 EACH TOP (15:45)
[2024-09-19] MEDS: LANOLIN OINT 7 GM 1 APPLIC TOP (15:47)
[2024-09-19] MEDS: IBUPROFEN 600 MG TABLET PO (18:39)
[2024-09-20] MEDS: IBUPROFEN 600 MG TABLET PO ×3 (01:02→16:21)
[2024-09-20] MEDS: ACETAMINOPHEN 325 MG TABLET 650 MG PO ×2 (04:51→16:21)
[2024-09-20 06:43] LABS: Add Manual Diff / Slide Review NO; Basophils Absolute Auto 200 /uL (0-100); Basophils Percent Auto 1.4 % (0-2); Eosinophils Absolute Auto 100 /uL (0-450); Eosinophils Percent Auto 0.4 % (2-4); Hematocrit 28.5 % (36-46); Hemoglobin 9.6 g/dL (12.0-16.0); Lymphocytes Absolute Auto 2100 /uL (1100-4500); Lymphocytes Percent Auto 12.8 % (25-40); Mean Corpuscular HGB Conc 33.8 % (30-36); Mean Corpuscular Hemoglobin 28.5 PG (26-34); Mean Corpuscular Volume 84.3 fL (80-100); Monocytes Absolute Auto 1000 /uL (0-900); Neutrophils Absolute Auto 12900 /uL (1500-7000); Neutrophils Percent Auto 79.4 % (50-75); Platelet Count 172 X10^3/uL (150-400); Red Blood Cell Count 3.38 X10^6/uL (4.0-5.2); Red Cell Distribution Width 15.7 % (11.6-14.8); White Blood Cell Count 16.2 X10^3/uL (4.5-11.0)
[2024-09-20] MEDS: PRENATAL VIT,CALC/IRON/FOLIC 1 TABLET 1 TAB PO (09:34)
[2024-09-20] MEDS: FERROUS SULFATE 325 MG TABLET PO (09:35)
[2024-09-20] MEDS: DOCUSATE 100 MG CAPSULE PO (09:35)
[2024-09-20] MEDS: CALCIUM CARBONATE 500 MG TAB 1000 MG PO (12:55)
--- NOTE | 2024-09-20 13:30 | PM.OBDS.1 ---
Discharge Providers Provider Date of admission: 09/18/24 22:13 Discharge Date: 09/20/24 Primary care physician: Beatriz Real MD Consults: 09/18/24 23:29 Consult to Anesthesiology Urgent Comment: Consulting Provider: Anesthesiologist Reason for consultation: Epidural 09/20/24 12:57 Consult to Tucking Machine Operator Routine Comment: Discharge provider: Beatriz Real MD Summary Hospital Course Date Patient Seen: 09/20/24 Time Patient Seen: 12:45 Diagnoses: Intrauterine at 37w3d GBS negative RH positive hemorrhage Retained placenta D&C Acute blood loss anemia Hospital Course: The pt presented with PROM, and then converted naturally into active labor. She had an epidural for pain control. She progressed to complete and after a prolonged 2nd stage had an of a viable baby girl. During the 3rd stage of labor the placenta would not delivery spontaneously. Multiple attempts for manual extraction were attempted, however the entire placenta could not be removed. The pt then underwent successful D&C. During this process, the pt had significant blood loss and received pitocin, methergine, TXA, and hemabate. Postoperatively she was given 2 units of PRBCs due to relative hypotension, vomiting, and dizziness along with the volume of blood loss. Her symptoms then improved significantly. The pt will continue on an iron supplement after discharge for her anemia. At the time of discharge she was voiding, ambulating, and passing flatus without difficulty. Her lochia was decreasing appropriately. Her pain was well controlled. She was with good latch. She will f/u in 6 weeks for check. She would like OCPs for contraception. 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 Patient counseled regarding alternatives, risks, benefits, and potential complications associated with suction curettage of the uterus sharp curettage as needed. With full understanding of the above, written consent was executed, signed, witnessed this date Time Spent with Patient Time attestation: Total time spent providing and/or coordinating discharge services: Objective Labs 09/20/24 06:25 Labs: Laboratory Results - last 24 hr 09/18/24 09/20/24 23:20 06:25 WBC 16.2 H RBC 3.38 L Hgb 9.6 L Hct 28.5 L MCV 84.3 MCH 28.5 MCHC 33.8 RDW 15.7 H Plt Count 172 Neut % (Auto) 79.4 H Lymph % (Auto) 12.8 L [place] % (Auto) 6.0 Eos % (Auto) 0.4 L Baso % (Auto) 1.4 Neut # (Auto) 91790 H Lymph # (Auto) 2100 [place] # (Auto) 1000 H Eos # (Auto) 100 Baso # (Auto) 200 H Blood Type O Positive Antibody Screen Negative Crossmatch See Detail Exam Vital Signs (past 8 hours): Oxygen Delivery Method Room Air Narrative Exam Narrative: Gen: NAD, sitting comfortably in bed, appears well CV: RRR, no murmurs Resp: clear to auscultation bilaterally Abd: soft, appropriately tender, fundus firm and below the umbilicus, nondistended Ext: no edema Discharge Plan Discharge Plan Patient Disposition: Home Discharge orders & Medications Prescriptions: New acetaminophen 325 mg Tablet 650 mg PO Q6HR PRN (Reason: Pain, Mild (1-3)) Qty: 30 0RF docusate sodium 100 mg Capsule 100 mg PO DAILY Qty: 30 0RF ferrous sulfate 325 mg (65 mg iron) Tablet 325 mg PO DAILY Qty: 30 0RF ibuprofen 600 mg Tablet 600 mg PO Q6HR PRN (Reason: Pain, Mild (1-3)) Qty: 30 0RF Continued vit-ferrous sulfat-FA 27 mg iron- 0.8 mg tablet PO Follow up/Referrals: Beatriz Real MD [Primary Care Provider] - 6 Weeks (Follow up appointment with Dr. Real on ) Diet/Activity/Treatments Diet: Diet as Tolerated and Regular Skin/Wound/Dressing Care Report to your healthcare provider any signs of infection, such as:: chills, fever, increased pain and unusual drainage Visit Report/Discharge Packet Instructions: DI for Labor and Delivery, Vaginal Stand Alone Forms: Patient Portal/API, Stroke Signs & Symptoms Discharge Data Primary Care Provider: Beatriz Real
[2024-09-20 17:30] VITALS: BP 120/73; PULSE 99; RESP 20; TEMP 36
== END 2024-09-20 17:30 | disposition home or self-care (01) | DRG 806 ==
PROVIDERS: Obstetrics & Gynecology; Admitting Provider Family Medicine; PCP Family Medicine; Referring Provider Family Medicine; Visit Provider Family Medicine
PROC: (CPT 57410; principal; 2024-09-19 15:00)
DX: O42.02 Full-term premature rupture of membranes, onset of labor within 24 hours of rupture (principal); D62 Acute posthemorrhagic anemia; O90.81 Anemia of the puerperium; O72.0 Third-stage hemorrhage; O26.873 Cervical shortening, third trimester; Z37.0 Single live birth; Z3A.37 37 weeks gestation of pregnancy
CPT/HCPCS: 36415; 36430; 59050; 59160; 59400; 84112; 85025; 85610; 85730; 86850; 86900; 86901; P9016; G0379; J0690; J2210; J2405; J2590; J3010

== ENCOUNTER → 2024-09-27 12:30 | Outpatient (CLI) | payer OTHER, SELFPAY ==
--- NOTE | 2024-09-27 12:31 | DI.US.S_ITS ---
PROCEDURE: US PELVIC COMPLETE INDICATIONS: bleeding TECHNIQUE: Real-time scanning was performed of the pelvic organs, with image documentation. Additional endovaginal scanning was necessary due to incomplete visualization of the adnexal and endometrial structures by transabdominal scanning. COMPARISON: [facility], US, US OB FOLLOW UP, 08/30/2024, 10:28. FINDINGS: Uterus: Uterus is anteverted and enlarged at 15.2 x 13.1 x 9.5. A 5.2 x 4.8 x 4.0 cm right posterior intramural fibroid is present. Heterogeneous echogenic material is seen in the endometrium measuring 44 mm in thickness. Some vascularity appears to be present within the material. Ovaries: Ovaries are not visualized. Other: No pathologic free abdominal or pelvic fluid. IMPRESSION: Large amount of heterogeneously echogenic material is seen in the endometrium that may represent blood products, although there appears to be some internal vascularity suggesting the possibility of retained products of conception. Approved by: Antione Johnson M.D. on 09/27/2024 at 13:46
== END ==
PROVIDERS: PCP Family Medicine; Referring Provider Family Medicine; Visit Provider Family Medicine
DX: O72.1 Other immediate postpartum hemorrhage (principal); D25.1 Intramural leiomyoma of uterus
CPT/HCPCS: 76856

== ENCOUNTER 2024-09-30 17:40 | Inpatient (IN) | payer OTHER, SELFPAY ==
--- NOTE | 2024-09-30 17:46 | DI.US.S_ITS ---
PROCEDURE: US PELVIC COMPLETE INDICATIONS: bleeding TECHNIQUE: Real-time scanning was performed of the pelvic organs, with image documentation. Additional endovaginal scanning was necessary due to incomplete visualization of the adnexal and endometrial structures by transabdominal scanning. COMPARISON: [facility], US, US PELVIC COMPLETE, 09/27/2024, 12:46. FINDINGS: Uterus: Uterus is anteverted and enlarged in size at 13.4 x 2.2 x 10.1 cm. The myometrium is heterogeneous. The endometrium measures 53 mm combined thickness. Areas heterogeneous echogenicity as well as increased vascularity are present. Right posterior intramural focus of heterogeneous echogenicity is present measuring 4.0 x 4.3 x 4.4 cm. Ovaries: The right ovary measures 4.6 x 2.6 x 2.4 cm, with a calculated ovarian volume of 21.2 cc. The left ovary measures 2.8 x 2.0 x 1.5 cm, with a calculated ovarian volume of 4.4 cc. The ovaries have a normal sonographic appearance. Less than 12 follicles can be seen in each ovary. No adnexal masses are seen. Other: No pathologic free abdominal or pelvic fluid. IMPRESSION: More prominent appearance increased vascularity within the endometrium heterogeneous echogenicity. Overall appearance remains most suggestive of retained products of conception. We strive to produce accurate, complete, and clear reports of imaging services. To assist us in improving patient care, this report was composed using standard report templates and voice recognition software. Therefore, it may contain abnormal punctuation, insertions and/or omissions. Occasional wrong-word or sound-alike substitutions may occur. Though we review the report and make efforts to correct it, we do recommend that the report be read carefully in proper context to recognize any text inaccuracies. Dictated by: Tequila Carolina M.D. on 09/30/2024 at 18:31 Approved by: Tequila Carolina M.D. on 09/30/2024 at 18:35
[2024-09-30 17:51] VITALS: BP 116/69; PULSE 123; RESP 20; TEMP 36.3; O2SAT 99
[2024-09-30 17:59] VITALS: BMI 30.4
[2024-09-30] MEDS: METHYLERGONOVINE 0.2 MG TABLET PO (18:15)
[2024-09-30 18:16] LABS: Add Manual Diff / Slide Review NO; Basophils Absolute Auto 100 /uL (0-100); Basophils Percent Auto 0.5 % (0-2); Eosinophils Absolute Auto 0 /uL (0-450); Eosinophils Percent Auto 0.1 % (2-4); Hemoglobin 8.5 g/dL (12.0-16.0); Lymphocytes Absolute Auto 1100 /uL (1100-4500); Mean Corpuscular HGB Conc 34.1 % (30-36); Mean Corpuscular Hemoglobin 28.5 PG (26-34); Mean Corpuscular Volume 83.4 fL (80-100); Monocytes Absolute Auto 900 /uL (0-900); Monocytes Percent Auto 6.8 % (3-14); Neutrophils Absolute Auto 11300 /uL (1500-7000); Neutrophils Percent Auto 84.6 % (50-75); Platelet Count 389 X10^3/uL (150-400); Red Cell Distribution Width 16.2 % (11.6-14.8); White Blood Cell Count 13.4 X10^3/uL (4.5-11.0)
--- NOTE | 2024-09-30 18:23 | P.HP_ITS ---
History of Present Illness History of Present Illness Date Patient Seen: 09/30/24 Time Patient Seen: 18:23 Chief complaint: POST- BLEEDING Narrative: Pt is a 39yo PPD # 11 39yo s/p complicated by retained placenta requiring D&C for removal, and significant hemorrhage s/p 2 units PRBCs here with ongoing heavy bleeding, lightheadedness, and fever at home. Her bleeding had initially slowed after discharge, but then she had a large bleed on 09/26. She was evaluated in the [facility] ED in [place]. Pelvic exam showed scant blood and her H/H was stable at 9.8/29.2. She was ultimately discharged home. The pt was then evaluated in clinic on 09/27. At that point she was still bleeding relatively heavily, soaking a medium sized pad every 2- 3hrs but without any significant blood clots. She was not having any pelvic pain, and had a temperature to 99.9F the evening of 09/26 and was feeling clammy. Ultrasound was completed that showed a large amount of blood products vs retained products of conception. PELOTA MAKER was consulted, Dr Klein, and after discussion with Dr Klein who did the initial D&C, and the patient, the decision was made to manage conservatively with PO Methergine. The pt was also started on PO Clindamycin due to concerns for infection. The pt was unfortunately unable to obtain any PO Methergine from local pharmacies. She has been taking the PO Clindamycin. She states that she had started to feel better on 09/28, however yesterday spiked a fever to 101.7F. Since then, she has been taking Tylenol regularly, and still feeling feverish before dosing. She continues to have heavy bleeding. She is changing her pad every 2 hrs. She will then have large gushes of blood that soak through her pad and pants around 2-3 times/day. She has passed clots that are approximately baseball size 3 times as well, and more frequently golf ball size and larger. She has been feeling lightheaded with intermittent palpitations. She denies any chest pain or SOB. She reports mild suprapubic tenderness, but denies any abnormal vaginal discharge beyond the bleeding. FORMERLY [facility], [facility] Medical History Cervical dysplasia Migraine with aura Meningitis spinal Surgical History History of gynecological procedure (~2010) History of oral surgery Family History Mother Substance abuse COPD (chronic obstructive pulmonary disease) Collapsed lung Broken heart syndrome Father Family estrangement Brother Rheumatoid arthritis Grandfather Skin cancer Grandmother Stroke Heart attack Sister Cervical cancer Asthma Social History marital status: unmarried,living together number of children: 1 household members: spouse, significant other and children lives independently: Yes caregiver/support person: Yes housing: house pets and animals: Yes (2 cats, 2 dogs) education level: high school occupational status: employed current occupational exposures/hazards: No special daniel needs: No travel history: over 6 months ago seatbelt use: always water heater temp set < 120 deg: Yes working smoke detector in home: Yes fire extinguisher in home: Yes carbon monox detector in home: Yes firearms in home: No do you feel safe at home: Yes Smoking Status: Current every day smoker Tobacco: How many years used: 21 second hand exposure: Yes (s/o smokes outdoors) alcohol intake: former substance use type: does not use during the past year weight has: increased > 10 lbs well-balanced diet: rarely or never daily servings fruits/ve-1 caffeine: Yes (aware of limits; has mostly been drinking decaf since ) Type(s) of exercise: none additional social history: Patient is still legally , although and actively seeking divorce, has a restraining order in place against her soon-to-be ex- Scooter. 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 Meds Home Medications and Allergies Home Medications Medication Instructions Recorded Confirmed Type vitamin-ferrous sulfate tab PO 02/22/24 09/27/24 History 27 mg iron-folic acid 0.8 mg tablet acetaminophen 325 mg tablet 650 mg (2 x 325 mg) PO Q6HR PRN 09/20/24 09/27/24 Rx Pain, Mild (1-3) #30 tabs docusate sodium 100 mg capsule 100 mg PO DAILY #30 caps 09/20/24 09/27/24 Rx ferrous sulfate 325 mg (65 mg 325 mg PO DAILY #30 tabs 09/20/24 09/27/24 Rx iron) tablet ibuprofen 600 mg tablet 600 mg PO Q6HR PRN Pain, Mild 09/20/24 09/27/24 Rx (1-3) #30 tabs clindamycin HCl 300 mg capsule 600 mg (2 x 300 mg) PO Q6H 7 days 09/27/24 Rx #56 caps Allergies Allergy/AdvReac Type Severity Reaction Status Date / Time amoxicillin Allergy Mild Rash Verified 09/27/24 12:02 suture Allergy Intermediate Uncoded 09/27/24 12:02 Exam Vital Signs (past 8 hours): - 09/30/24 17:51 Temperature 97.3 F L Pulse Rate 123 H Respiratory Rate 20 Blood Pressure 116/69 Pulse Oximetry 99 Narrative Exam Narrative: Gen: NAD, sitting comfortably in bed, appears pale and fatigued, minimally sweaty Neck: no LAD CV: RRR, no murmurs Resp: clear to auscultation bilaterally Abd: soft, tender suprapubic and RLQ without rebound/guarding/rigidity, fundus not palpable Ext: no edema Neuro: no gross deficits Objective Labs 09/30/24 18:05 Labs: Laboratory Results - last 24 hr 09/30/24 18:05 WBC 13.4 H RBC 3.00 L Hgb 8.5 L Hct 25.0 L MCV 83.4 MCH 28.5 MCHC 34.1 RDW 16.2 H Plt Count 389 Neut % (Auto) 84.6 H Lymph % (Auto) 8.0 L Grainger % (Auto) 6.8 Eos % (Auto) 0.1 L Baso % (Auto) 0.5 Neut # (Auto) 75333 H Lymph # (Auto) 1100 Grainger # (Auto) 900 Eos # (Auto) 0 Baso # (Auto) 100 Assessment & Plan Assessment & Plan narrative: Pt is a 39yo PPD # 11 39yo s/p complicated by retained placenta requiring D&C for removal, and significant hemorrhage s/p 2 units PRBCs here with ongoing heavy bleeding, lightheadedness, and documented Tmax 101.7F. The pt is tachycardic, but hemodynamically stable. H/H dropped moderately, likely hemoconcentrated as well. U/S today showing ongoing concern for retained POC. 1) Endometritis: Pt with fever, mild uterine tenderness, tachycardia. WBC count only minimally elevated, however pt has been on PO Clindamycin at home as well. Additional labs pending, however low suspicion for sepsis at this time. - CMP, Lactic acid, Blood cultures sent - IV Clindamycin and Gentamycin; pt with Amoxicillin allergy - Tylenol/Ibuprofen PRN for pain/fever, pt declines need for additional agents for pain control - Will need to be afebrile for 24hrs prior to discharge - Probiotic due to Clindamycin 2) bleeding/hemorrhage: S/P D&C the day of delivery. Ongoing heavy bleeding now with frequent large gushes of blood and passing of large clots. U/S with concern for retained POC. Did have drop in H/H, not currently at transfusion level. - PO Methergine q6hrs with hopes can pass remaining tissue - Trend H/H in the morning - Continue PO iron supplementation - Dependent on ongoing bleeding overnight, may need D&C. Will keep NPO after midnight in anticipation - Prolactin, TSH added to labs due to severity of hemorrhage including at delivery - Type and screen - Pads to be weighed for QBL 3) state: - Continue vitamin FEN: General diet until NPO at midnight DVT ppx: SCDs due to ongoing bleeding Code: Full Dispo: Pending afebrile for 24hrs, bleeding adequately controlled. Anticipate 2 midnights. Time-Based Coding :: 90 minutes spent with patient and on the chart (including review of chart, obtaining history, exam, reviewing outside data, placing orders, documenting exam and treatment plan, and counseling patient) on 09/30/24. Quality VTE Deep Vein Thrombosis/Pulmonary Embolism Present on Admission: No IH PROFEE [employer] Supervisor Document charge(s): Yes Charge Codes Initial inpatient/observation care: [id number]
[2024-09-30] MEDS: GENTAMICIN 450 MG in SODIUM CHLORIDE 0.9% 100 ML 111.25 MG IV (18:33)
[2024-09-30] MEDS: LACTATED RINGERS 1,000 ML 100 ML IV (18:42)
[2024-09-30 19:30] VITALS: BP 97/65; PULSE 96; RESP 19; TEMP 36.9; O2SAT 96
[2024-09-30 19:39] LABS: Lactate (Lactic Acid) 0.8 mmol/L (0.7-2.1)
[2024-09-30 19:40] LABS: Alanine Aminotransferase 17 IU/L (<35); Albumin 3.4 g/dL (3.5-5.0); Albumin Globulin Ratio 1.1 (1.0-2.8); Alkaline Phosphatase 130 U/L (38-126); Aspartate Aminotransferase 17 IU/L (14-36); Bilirubin Total 0.4 mg/dL (0.2-1.3); Blood Urea Nitrogen 9 mg/dL (7-17); Calcium 8.3 mg/dL (8.4-10.2); Carbon Dioxide 20 mmol/L (22-32); Chloride 103 mmol/L (98-107); Estimated Glomerular Filt Rate > 60 mL/min (>60); Globulin 3.1 g/dL (1.7-4.1); Glucose 96 mg/dL (70-100); HEMOLYSIS < 15 (0-50); Potassium 3.3 mmol/L (3.4-5.1); Sodium 134 mmol/L (137-145); Total Protein 6.5 g/dL (6.3-8.2)
[2024-09-30 19:44] LABS: Prolactin 56.1 ng/mL (3.0-18.6)
[2024-09-30 19:53] VITALS: BMI 30.4
[2024-09-30 19:59] LABS: TSH w/ Reflex to FT4 0.84 uIU/mL (0.47-4.68)
[2024-09-30] MEDS: ACETAMINOPHEN 325 MG TABLET 650 MG PO (20:26)
[2024-09-30] MEDS: CLINDAMYCIN 900 MG/50 ML PIGGYBACK 50 MG IV (20:27)
[2024-09-30] MEDS: IBUPROFEN 600 MG TABLET PO (20:29)
--- NOTE | 2024-09-30 21:14 | PC.NURSE ---
Called Dr. Real to inform her of the 159 ml blood loss with large clot at 2100 along with the 29 ml blood loss measured 15 minutes prior. Plan to continue watching over the next hour and call Dr. Real with any more large blood gushes.
[2024-09-30 23:00] VITALS: BP 96/57; PULSE 103; RESP 20; TEMP 36.8; O2SAT 97
[2024-09-30 23:08] LABS: Hematocrit 23.3 % (36-46); Hemoglobin 7.7 g/dL (12.0-16.0)
[2024-10-01] VITALS (57 sets, daily range): BP systolic 85–123; BP diastolic 48–65; PULSE 63–140; RESP 14–24; TEMP 35.3–37.8; O2SAT 19–100
--- NOTE | 2024-10-01 | PATH_ITS ---
[facility] Accession Number: [id number] No. of containers..01 Tissue . 01 Material submitted: . uterus - UTERINE CONTENTS . 01 Diagnosis: UTERINE CONTENTS: Products of conception identified. Consultation pending to exclude molar gestation (Integrated Oncology); results will be reported as an addendum. MRV 10/04/2024 0908 Local . 01 Electronically signed: . Evette Mac MD, Pathologist NPI- [id number] . 01 Gross description: . Received in formalin with two patient identifiers and uterine contents, are multiple fragments of red-guzman spongy to membranous soft tissue admixed with hemorrhagic material weighing 322 grams and aggregating to 20.3 x 13.1 x 5.0 cm. Tenacious, partially cloudy guzman mucoid material is identified adherent to a portion of tissue. No discrete lesions are identified. Tobacco Dipper sections are submitted in A1-A3. ([id number]) /MRV 10/02/2024 1838 Local . 01 Pathologist provided ICD-10: O02.1 . 01 CPT . 701545 Specimen Comment: A courtesy copy of this report has been sent to [facility] Pathology Performed at: 01 [facility] [address] [address], [place], [place] [id number] MD Davion Munroe MD Phone: [phone]
[2024-10-01] MEDS: METHYLERGONOVINE 0.2 MG TABLET PO ×3 (00:08→12:13)
[2024-10-01] MEDS: SODIUM CHLORIDE 0.9% 250 ML 21 ML IV (00:08)
[2024-10-01] MEDS: CLINDAMYCIN 900 MG/50 ML PIGGYBACK 50 MG IV ×4 (02:36→20:12)
[2024-10-01] MEDS: ACETAMINOPHEN 325 MG TABLET 650 MG PO ×2 (03:37→10:35)
[2024-10-01] MEDS: IBUPROFEN 600 MG TABLET PO ×2 (03:38→10:34)
[2024-10-01 06:07] LABS: Add Manual Diff / Slide Review NO; Basophils Absolute Auto 100 /uL (0-100); Basophils Percent Auto 0.8 % (0-2); Eosinophils Absolute Auto 100 /uL (0-450); Eosinophils Percent Auto 0.5 % (2-4); Hematocrit 24.1 % (36-46); Hemoglobin 8.2 g/dL (12.0-16.0); Lymphocytes Absolute Auto 600 /uL (1100-4500); Lymphocytes Percent Auto 6.3 % (25-40); Mean Corpuscular HGB Conc 34.1 % (30-36); Mean Corpuscular Hemoglobin 28.5 PG (26-34); Mean Corpuscular Volume 83.4 fL (80-100); Monocytes Absolute Auto 600 /uL (0-900); Monocytes Percent Auto 6.1 % (3-14); Neutrophils Absolute Auto 8900 /uL (1500-7000); Neutrophils Percent Auto 86.3 % (50-75); Platelet Count 315 X10^3/uL (150-400); Red Blood Cell Count 2.88 X10^6/uL (4.0-5.2); Red Cell Distribution Width 16.1 % (11.6-14.8); White Blood Cell Count 10.3 X10^3/uL (4.5-11.0)
[2024-10-01] MEDS: FERROUS SULFATE 325 MG TABLET PO (07:56)
[2024-10-01] MEDS: LACTATED RINGERS 1,000 ML 100 ML IV ×2 (07:57→20:12)
--- NOTE | 2024-10-01 07:58 | PM.PN.IH.1 ---
Subjective Subjective Date Patient Seen: 10/01/24 Time Patient Seen: 07:59 Interval history: Pt reports some improvement in her lightheadedness with movement/standing. She continues to feel sweaty this morning, but had no documented fevers overnight. She was taking Tylenol regularly, however. She continues to feel weak. Overnight, the pt experienced two larger gushes of blood with clots. Her QBL overnight was 437mL, with majority lost prior to 11pm. She then had another large gush of blood with clot this morning for 148mL loss of blood. Exam Vital Signs (past 8 hours): - 10/01/24 00:11 10/01/24 00:28 10/01/24 01:28 Temperature 98.5 F 98.0 F 97.7 F Pulse Rate 102 H 103 H 92 H Respiratory Rate 21 17 18 Blood Pressure 101/53 L 97/52 L 104/63 Pulse Oximetry 10/01/24 01:48 10/01/24 05:49 10/01/24 07:51 Temperature 98.2 F 98.1 F 97.8 F Pulse Rate 90 93 H 105 H Respiratory Rate 17 16 18 Blood Pressure 95/49 L 93/51 L 97/65 Pulse Oximetry 98 99 Narrative Exam Narrative: Gen: NAD, sitting comfortably in bed, appears pale still CV: regular rhythm, tachycardic, no murmurs Resp: clear to auscultation bilaterally Abd: soft, mild tenderness RUQ without rebound/guarding/rigidity, normoactive bowel sounds Ext: no edema Objective Labs 10/01/24 05:53 09/30/24 19:05 Labs: Laboratory Results - last 24 hr 09/30/24 09/30/24 09/30/24 18:05 18:44 19:05 WBC 13.4 H RBC 3.00 L Hgb 8.5 L Hct 25.0 L MCV 83.4 MCH 28.5 MCHC 34.1 RDW 16.2 H Plt Count 389 Neut % (Auto) 84.6 H Lymph % (Auto) 8.0 L [place] % (Auto) 6.8 Eos % (Auto) 0.1 L Baso % (Auto) 0.5 Neut # (Auto) 77775 H Lymph # (Auto) 1100 [place] # (Auto) 900 Eos # (Auto) 0 Baso # (Auto) 100 Sodium 134 L Potassium 3.3 L Chloride 103 Carbon Dioxide 20 L BUN 9 Creatinine 0.60 Estimated GFR > 60 BUN/Creatinine Ratio 15.0 Glucose 96 Lactate 0.8 Calcium 8.3 L Total Bilirubin 0.4 AST 17 ALT 17 Alkaline Phosphatase 130 H Total Protein 6.5 Albumin 3.4 L Globulin 3.1 Albumin/Globulin Ratio 1.1 TSH 0.84 Prolactin 56.1 H Blood Type O Positive Antibody Screen Negative Crossmatch See Detail 09/30/24 10/01/24 22:56 05:53 WBC 10.3 RBC 2.88 L Hgb 7.7 L 8.2 L Hct 23.3 L 24.1 L MCV 83.4 MCH 28.5 MCHC 34.1 RDW 16.1 H Plt Count 315 Neut % (Auto) 86.3 H Lymph % (Auto) 6.3 L [place] % (Auto) 6.1 Eos % (Auto) 0.5 L Baso % (Auto) 0.8 Neut # (Auto) 8900 H Lymph # (Auto) 600 L [place] # (Auto) 600 Eos # (Auto) 100 Baso # (Auto) 100 Sodium Potassium Chloride Carbon Dioxide BUN Creatinine Estimated GFR BUN/Creatinine Ratio Glucose Lactate Calcium Total Bilirubin AST ALT Alkaline Phosphatase Total Protein Albumin Globulin Albumin/Globulin Ratio TSH Prolactin Blood Type Antibody Screen Crossmatch [facility] Medical History Cervical dysplasia Migraine with aura Meningitis spinal Surgical History History of gynecological procedure (~2010) History of oral surgery Family History Mother Substance abuse COPD (chronic obstructive pulmonary disease) Collapsed lung Broken heart syndrome Father Family estrangement Brother Rheumatoid arthritis Grandfather Skin cancer Grandmother Stroke Heart attack Sister Cervical cancer Asthma Social History marital status: unmarried,living together number of children: 1 household members: spouse, significant other and children lives independently: Yes caregiver/support person: Yes housing: house pets and animals: Yes (2 cats, 2 dogs) education level: high school occupational status: employed current occupational exposures/hazards: No special daniel needs: No travel history: over 6 months ago seatbelt use: always water heater temp set < 120 deg: Yes working smoke detector in home: Yes fire extinguisher in home: Yes carbon monox detector in home: Yes firearms in home: No do you feel safe at home: Yes Smoking Status: Current every day smoker Tobacco: How many years used: 21 second hand exposure: Yes (s/o smokes outdoors) alcohol intake: former substance use type: does not use during the past year weight has: increased > 10 lbs well-balanced diet: rarely or never daily servings fruits/ve-1 caffeine: Yes (aware of limits; has mostly been drinking decaf since ) Type(s) of exercise: none additional social history: Patient is still legally , although and actively seeking divorce, has a restraining order in place against her soon-to-be ex- Scooter. 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 Assessment & Plan Assessment & Plan narrative: Pt is a 39yo PPD # 12 complicated by retained placenta requiring D&C for removal, and significant hemorrhage s/p 2 units PRBCs here with ongoing heavy bleeding, lightheadedness, and documented Tmax 101.7F at home. U/S yesterday showing ongoing concern for retained POC. 1) Endometritis: Pt with fever, mild uterine tenderness, tachycardia at presentation. No evidence of sepsis. Afebrile overnight on regular Tylenol dosing. - F/U blood cultures - IV Clindamycin and Gentamycin; pt with Amoxicillin allergy - Tylenol/Ibuprofen PRN for pain/fever, pt declines need for additional agents for pain control - Will need to be afebrile for 24hrs prior to discharge - Probiotic due to Clindamycin 2) bleeding/hemorrhage: S/P D&C the day of delivery. Ongoing heavy bleeding now with frequent large gushes of blood and passing of large clots. U/S with concern for retained POC. Did have drop in H/H, received 1 unit PRBCs overnight with minimal improvement in H/H. - PO Methergine q6hrs with hopes can pass remaining tissue - Continue to trend H/H - Continue PO iron supplementation, may need iron infusion - Plan on D&C today - Pads to be weighed for QBL 3) state: - Continue vitamin FEN: NPO pending D&C DVT ppx: SCDs due to ongoing bleeding Code: Full Dispo: Pending afebrile for 24hrs, bleeding adequately controlled. Plan for at least one additional night. Time-Based Coding :: [TOTAL MINUTES] spent with patient and on the chart (including review of chart, obtaining history, exam, reviewing outside data, placing orders, documenting exam and treatment plan, and counseling patient) on [DATE]. 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
[2024-10-01] MEDS: LACTOBACILLUS ACIDOPHILUS TABLET 1 EACH PO (10:34)
--- NOTE | 2024-10-01 12:55 | PM.PREOP ---
Pre-operative Note Interval Note History & Physical reviewed/Exam performed by Physician: Yes Changes to H&P: No H&P completed within 30 days and has changed as indicated here:: 39yo PPD #12 readmitted for persistent bleeding and concern for endometritis. She was started on IV gent/clinda last night. Continues to pass occasional clots, with moderate flow. At this point, I counseled and consented her for repeat suction D&C given that she has failed conservative management. We reviewed the risk/benefit of the procedure, including but not limited to uterine bleeding requiring medications, surgical maneuvers, or therapeutic hysterectomy for life-threatening bleeding, and uterine perforation with injury to intra-abdominal structures. We will sign the surgical consent prior to moving to the OR. All her and her partner's questions were answered at this time.
--- NOTE | 2024-10-01 14:51 | SUR.OPER ---
Lithotomy on padded OR bed, head on pillow, arms secured on padded arm boards at <90 degrees abduction. Legs secured in padded yellow fins stirrups.
[2024-10-01] MEDS: TRANEXAMIC ACID 1,000 MG in SODIUM CHLORIDE 0.9% 100 ML 200 MG IV (14:52)
[2024-10-01] MEDS: METHYLERGONOVINE 0.2 MG/ML VIAL IM (15:15)
[2024-10-01 15:46] LABS: Hematocrit 25.4 % (36-46); Hemoglobin 8.4 g/dL (12.0-16.0); Mean Corpuscular HGB Conc 33.1 % (30-36); Mean Corpuscular Volume 87.8 fL (80-100); Platelet Count 342 X10^3/uL (150-400); Red Cell Distribution Width 16.8 % (11.6-14.8); White Blood Cell Count 16.1 X10^3/uL (4.5-11.0)
--- NOTE | 2024-10-01 15:54 | PM.OP.1 ---
Operative Date/Time/Diagnoses Date of procedure: 10/01/24 Time of procedure: 14:45 Pre-op diagnosis: Persistent bleeding Endometritis Post-op diagnosis: same (retained products of conception; hemorrhage) Procedure & Clinicians Procedure: Suction dilation and curettage Same procedure as scheduled: Yes Indications: 39yo 12 days after complicated by retained placenta, PPH, and D&C, now with persistent bleeding and endometritis. She was noted to have ultrasound findings consistent with retained products of conception, so given her persistent bleeding despite conservative management, she was counseled and consented for repeat suction D&C. Surgeon: Lucinda Klein Click Yes if Unassisted: Yes Anesthesia Type: General Operative Notes Findings: Moderate amount of placental tissue and products of conception evacuated from the uterus. Brisk uterine bleeding was encountered throughout the case, and she was given 1g TXA, 1 dose of methergine, and transfused 2 units of pRBCs. A Lois uterine vacuum system was applied. Closure Type: not applicable Specimen(s): other (uterine contents) Applied: catheter and device(s) (Lois system) Estimated Blood Loss (mL): 2,500 Blood products transfused: packed red blood cells Procedure in detail: The risks, benefits, indications and alternatives of the procedure were reviewed with the patient and informed consent was obtained. The pt was taken to the operating room where general anesthesia was obtained without difficulty. The pt was then placed in the low lithotomy position using gel-padded Oscar Stirrups. SCDs were placed bilaterally for VTE prophylaxis. The pt was then prepped and draped in the sterile fashion. A sterile speculum was placed in the patient?s vagina and the cervix was visualized.? A single tooth tenaculum was used to grasp the anterior lip of the cervix. The cervix was already dilated about 3-4cm. A 12mm curved suction catheter was then introduced into the uterine cavity and gently advanced to the uterine fundus with ultrasound visualization (done by Dr. Real). The suction device was then activated and the catheter was rotated to clear the uterus of products of conception. Several passes were performed with a moderate amount of tissue obtained, however there was tissue seen on ultrasound that was unable to be suctioned out. A sharp curettage was then performed to try to break up this adherent tissue, which was unsuccessful. During this time, patient was bleeding heavily, and she was given the above medications with blood called for. I was able to use my hand to get to the top of the uterine fundus and manually remove several pieces of tissue that appeared like placenta. After most of the tissue was felt to be removed, ultrasound was used again to ensure most of the tissue was removed. The suction catheter was then placed in the uterus again, and the remaining tissue was visualized on ultrasound to be removed. All tissue was sent to pathology for review. Ultrasound at the end confirmed that the retained tissue was removed. The uterus was still briskly bleeding, despite the above medications and bimanual compression, thus a Lois vacuum system was called for. The Lois was able to be manually introduced into the uterine cavity, and the cervical balloon was inflated to 60cc. The device was then applied to suction, and the bleeding through the tubing was minimal. A rapp catheter was placed in her bladder while the Lois is in place. At the completion of the case the sponge and needle counts were correct x 2. The patient was noted to be hypotensive and tachycardic during the case, and was given fluid resuscitation as well as blood products (see anesthesia record for details). She was monitored in the OR after Lois placement for another 30min, and deemed to be stable for transfer to the PACU. Complications: other ( hemorrhage) Post-operative Condition: stable Disposition: PACU Plan for aftercare: Plan for transfer back to the center for monitoring, unless patient needs blood pressure support, then she may need to be transferred to the ICU. Consider discontinuing the Lois vacuum system at 3hrs.
[2024-10-01 15:55] LABS: INR 1.2 (0.9-1.3); Prothrombin Time 13.6 SECONDS (9.4-12.5)
[2024-10-01 15:56] LABS: Fibrinogen 352 mg/dL (238-498)
[2024-10-01 15:58] LABS: PTT Partial Thromboplastin Tim 34 SECONDS (25.1-36.5)
[2024-10-01] MEDS: ONDANSETRON 4 MG/2 ML INJ IV (16:03)
[2024-10-01] MEDS: MEPERIDINE 50 MG/ML INJ 25 MG IV (17:15)
[2024-10-01] MEDS: PHENYLEPHRINE 20,000 MCG in DEXTROSE 5% IN WATER 250 ML 16.9 MCG IV (17:44)
[2024-10-01] MEDS: fentaNYL 100 MCG/2 ML INJ IV (17:54)
--- NOTE | 2024-10-01 18:30 | DI.RAD.S_ITS ---
PROCEDURE: XR CHEST 1V INDICATIONS: Central line placement TECHNIQUE: One view of the chest was acquired. COMPARISON: None. FINDINGS: Surgical changes and devices: Right IJ central venous catheter tip projects over the lower SVC. Lungs and pleura: Lungs are clear. No pleural effusions or pneumothorax. Mediastinum: Mediastinal contours appear normal. Heart size is normal. Bones and chest wall: No suspicious bony lesions. Overlying soft tissues appear unremarkable. IMPRESSION: Right IJ central venous catheter tip projects over the lower SVC. Dictated by: Marc Schwab M.D. on 10/01/2024 at 18:59 Approved by: Marc Schwab M.D. on 10/01/2024 at 18:59
--- NOTE | 2024-10-01 18:42 | PM.PROC.1 ---
Procedures Date/Time Date of procedure: 10/01/24 Time of procedure: 18:07 Central Line Placement Time out performed: Yes (2021) Patient placed on monitor/pulse ox: Yes MD prep: mask, gown, gloves and other (hair cover) Central line prep: Chlorhexidine scrub Local anesthesia used: lidocaine 1% Amount of anesthesia used (ml): 5 Ultrasound used for placement: Yes Central line lumen inserted: triple Post procedure: sutured in place, good blood return, all ports aspirated, flushed, capped and sterile dressing applied Post procedure x-ray: tip of catheter in good position and no pneumothorax seen Patient tolerated procedure: well and no complications Additional comments: Start 180 End 183
--- NOTE | 2024-10-01 18:46 | PM.EVENT ---
Event Note Date Patient Seen: 10/01/24 Time Patient Seen: 18:46 Event Note (Rapid Response, Code, or fall): The Lois vacuum system was removed from the uterus at this time. Minimal vaginal bleeding was noted. -pt to the ICU for monitoring overnight
--- NOTE | 2024-10-01 18:53 | PM.CN ---
History of Present Illness Consult details Date Patient Seen: 10/01/24 Time Patient Seen: 18:15 Chief complaint: POST- BLEEDING Narrative: The patient was seen in consultation. She was a 39-year-old 0-3. She was day 11. Her delivery was complicated by hemorrhage and retained placenta. Today she had D&C for her placenta removal and this is complicated by hemorrhage. She lost over 2 L of blood. She was fluid resuscitated and given 3 units of packed cells, 1 of cryoprecipitate, and 2 of FFP. A uterine tamponade device was placed. The patient had persistent hypotension, and Reji-Synephrine was infused. A central venous catheter was placed in the right IJ at approximately 6:00 p.m. by anesthesia. The patient improved clinically and I saw her in the PACU. She was doing well with a blood pressure of 90/50. She does have chronic hypotension with systolic pressures near 90. Her uterine tamponade devices removed and there was no evidence of bleeding. She has a very low dose of Reji-Synephrine infusing. She denies any dyspnea, chest pain, or abdominal pain. She was mentating normally. Meds Home Medications and Allergies Home Medications Medication Instructions Recorded Confirmed Type vitamin-ferrous sulfate 1 tab PO DAILY 02/22/24 09/30/24 History 27 mg iron-folic acid 0.8 mg tablet acetaminophen 325 mg tablet 650 mg (2 x 325 mg) PO Q6HR PRN 09/20/24 09/30/24 Rx Pain, Mild (1-3) #30 tabs docusate sodium 100 mg capsule 100 mg PO DAILY #30 caps 09/20/24 09/30/24 Rx ferrous sulfate 325 mg (65 mg 325 mg PO DAILY #30 tabs 09/20/24 09/30/24 Rx iron) tablet ibuprofen 600 mg tablet 600 mg PO Q6HR PRN Pain, Mild 09/20/24 09/30/24 Rx (1-3) #30 tabs clindamycin HCl 300 mg capsule 600 mg (2 x 300 mg) PO Q6H 7 days 09/27/24 09/30/24 Rx #56 caps Allergies Allergy/AdvReac Type Severity Reaction Status Date / Time amoxicillin Allergy Mild Rash Verified 09/27/24 12:02 suture Allergy Intermediate Uncoded 09/27/24 12:02 Review of Systems Review of Systems Narrative: All else reviewed and otherwise unremarkable except as noted in the history and physical. Exam Vital Signs (past 8 hours): - 10/01/24 12:16 10/01/24 12:20 10/01/24 12:56 Temperature 100.1 F H 99.1 F 98.7 F Pulse Rate 99 H Respiratory Rate 18 Blood Pressure 95/54 L Pulse Oximetry 96 Oxygen Delivery Method Oxygen Flow Rate 10/01/24 15:57 10/01/24 16:01 10/01/24 16:05 Temperature 97.4 F L Pulse Rate 140 H 140 H 132 H Respiratory Rate 15 14 20 Blood Pressure 87/54 L 105/52 L 93/48 L Pulse Oximetry 93 96 97 Oxygen Delivery Method Room Air Room Air Room Air Oxygen Flow Rate 10/01/24 16:10 10/01/24 16:11 10/01/24 16:15 Temperature 97.4 F L Pulse Rate 127 H 127 H 123 H Respiratory Rate 24 22 14 Blood Pressure 87/51 L 87/51 L 86/51 L Pulse Oximetry 97 97 Oxygen Delivery Method Room Air Room Air Oxygen Flow Rate 10/01/24 16:20 10/01/24 16:25 10/01/24 16:30 Temperature 97.0 F L Pulse Rate 114 H 111 H 108 H Respiratory Rate 15 16 15 Blood Pressure 85/53 L 91/55 L 87/53 L Pulse Oximetry 98 98 98 Oxygen Delivery Method Room Air Room Air Room Air Oxygen Flow Rate 10/01/24 16:31 10/01/24 16:35 10/01/24 16:40 Temperature 97.0 F L Pulse Rate 110 H 106 H 105 H Respiratory Rate 16 17 19 Blood Pressure 87/53 L 97/56 L 88/51 L Pulse Oximetry 98 99 Oxygen Delivery Method Room Air Room Air Oxygen Flow Rate 10/01/24 16:45 10/01/24 16:50 10/01/24 16:55 Temperature 97.6 F Pulse Rate 104 H 96 H 105 H Respiratory Rate 17 17 15 Blood Pressure 85/54 L 116/49 L 123/54 L Pulse Oximetry 99 100 96 Oxygen Delivery Method Room Air Room Air Room Air Oxygen Flow Rate 10/01/24 17:00 10/01/24 17:02 10/01/24 17:05 Temperature 98.7 F Pulse Rate 108 H 112 H 117 H Respiratory Rate 19 21 18 Blood Pressure 113/49 L 113/49 L 92/56 L Pulse Oximetry 100 100 Oxygen Delivery Method Room Air Room Air Oxygen Flow Rate 10/01/24 17:06 10/01/24 17:11 10/01/24 17:17 Temperature 98.2 F Pulse Rate 114 H 117 H 63 Respiratory Rate 18 20 20 Blood Pressure 87/50 L 91/59 L 88/48 L Pulse Oximetry 99 100 Oxygen Delivery Method Room Air Room Air Oxygen Flow Rate 10/01/24 17:17 10/01/24 17:20 10/01/24 17:21 Temperature Pulse Rate 114 H 114 H 104 H Respiratory Rate 20 20 19 Blood Pressure 88/48 L 102/59 L 97/62 Pulse Oximetry 100 100 100 Oxygen Delivery Method Room Air Room Air Room Air Oxygen Flow Rate 10/01/24 17:26 10/01/24 17:46 10/01/24 18:02 Temperature Pulse Rate 112 H 117 H 109 H Respiratory Rate 17 15 17 Blood Pressure 95/58 L 93/54 L 91/54 L Pulse Oximetry 100 99 98 Oxygen Delivery Method Room Air Simple Mask Oxygen Flow Rate 6 10/01/24 18:06 10/01/24 18:12 10/01/24 18:18 Temperature Pulse Rate 97 H 94 H 92 H Respiratory Rate 19 20 Blood Pressure 88/52 L 87/50 L 94/54 L Pulse Oximetry 100 19 L 99 Oxygen Delivery Method Room Air Room Air Oxygen Flow Rate 99 10/01/24 18:27 10/01/24 18:43 Temperature Pulse Rate 97 H 100 H Respiratory Rate 20 16 Blood Pressure 89/53 L 94/57 L Pulse Oximetry 99 99 Oxygen Delivery Method Room Air Simple Mask Oxygen Flow Rate 6 Oxygen Delivery Method Simple Mask Oxygen Flow Rate 6 Narrative Exam Narrative: NAD, alert and oriented, fluent speech. Tearful. Normocephalic skull, EOMI, anicteric sclera, symmetric pupils. Oropharynx unremarkable, no droop. Neck supple, midline trachea, no adenopathy. Lungs clear, normal rate and effort. Heart regular, no murmur gallop or rub. Abdomen is soft, non distended and non tender. Extremities are free of edema. Skin is free of rash or lesions. Joints are not swollen or deformed. Judgment appears to be normal. Objective Imaging Chest x-ray: Radiologist's impression: Right IJ CVL is in the right atrium, no pneumothorax. Labs 10/01/24 15:33 09/30/24 19:05 Labs: Laboratory Results - last 24 hr 09/30/24 09/30/24 09/30/24 18:05 18:44 19:05 WBC RBC Hgb Hct MCV MCH MCHC RDW Plt Count Neut % (Auto) Lymph % (Auto) [place] % (Auto) Eos % (Auto) Baso % (Auto) Neut # (Auto) Lymph # (Auto) [place] # (Auto) Eos # (Auto) Baso # (Auto) PT INR APTT Fibrinogen Sodium 134 L Potassium 3.3 L Chloride 103 Carbon Dioxide 20 L BUN 9 Creatinine 0.60 Estimated GFR > 60 BUN/Creatinine Ratio 15.0 Glucose 96 Lactate 0.8 Calcium 8.3 L Total Bilirubin 0.4 AST 17 ALT 17 Alkaline Phosphatase 130 H Total Protein 6.5 Albumin 3.4 L Globulin 3.1 Albumin/Globulin Ratio 1.1 TSH 0.84 Prolactin 56.1 H Blood Type O Positive Antibody Screen Negative Crossmatch See Detail 09/30/24 10/01/24 10/01/24 22:56 05:53 15:33 WBC 10.3 16.1 H D RBC 2.88 L 2.90 L Hgb 7.7 L 8.2 L 8.4 L Hct 23.3 L 24.1 L 25.4 L MCV 83.4 87.8 D MCH 28.5 29.0 MCHC 34.1 33.1 RDW 16.1 H 16.8 H Plt Count 315 342 Neut % (Auto) 86.3 H Lymph % (Auto) 6.3 L [place] % (Auto) 6.1 Eos % (Auto) 0.5 L Baso % (Auto) 0.8 Neut # (Auto) 8900 H Lymph # (Auto) 600 L [place] # (Auto) 600 Eos # (Auto) 100 Baso # (Auto) 100 PT 13.6 H INR 1.2 APTT 34 Fibrinogen 352 Sodium Potassium Chloride Carbon Dioxide BUN Creatinine Estimated GFR BUN/Creatinine Ratio Glucose Lactate Calcium Total Bilirubin AST ALT Alkaline Phosphatase Total Protein Albumin Globulin Albumin/Globulin Ratio TSH Prolactin Blood Type Antibody Screen Crossmatch [facility] Medical History Cervical dysplasia Migraine with aura Meningitis spinal Surgical History History of gynecological procedure (~2010) History of oral surgery Family History Mother Substance abuse COPD (chronic obstructive pulmonary disease) Collapsed lung Broken heart syndrome Father Family estrangement Brother Rheumatoid arthritis Grandfather Skin cancer Grandmother Stroke Heart attack Sister Cervical cancer Asthma Social History marital status: unmarried,living together number of children: 1 household members: spouse, significant other and children lives independently: Yes caregiver/support person: Yes housing: house pets and animals: Yes (2 cats, 2 dogs) education level: high school occupational status: employed current occupational exposures/hazards: No special daniel needs: No travel history: over 6 months ago Safety seatbelt use: always water heater temp set < 120 deg: Yes working smoke detector in home: Yes fire extinguisher in home: Yes carbon monox detector in home: Yes firearms in home: No do you feel safe at home: Yes Tobacco & Substance Use Smoking Status: Current every day smoker Tobacco: How many years used: 21 second hand exposure: Yes (s/o smokes outdoors) alcohol intake: former substance use type: does not use Diet and Exercise during the past year weight has: increased > 10 lbs well-balanced diet: rarely or never daily servings fruits/ve-1 caffeine: Yes (aware of limits; has mostly been drinking decaf since ) Type(s) of exercise: none Additional Social History additional social history: Patient is still legally , although and actively seeking divorce, has a restraining order in place against her soon-to-be ex- Scooter. 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 Assessment & Plan Assessment & Plan narrative: 1. Post D&C for retained placenta, complicated by massive hemorrhage. Improved. 2. Acute blood loss anemia, active and improving. 3. Hemorrhagic shock, active and improving. Plan: -admit to the ICU -continue IV fluids -repeat CBC, PT, PTT, and fibrinogen at 7:30 p.m.. -blood products as needed. -wean Reji-Synephrine. -we will hold off any ICU consult as she was likely to be off pressors in the next 1-2 hours. Time-Based Coding :: 40 min spent with patient and on the chart (including review of chart, obtaining history, exam, reviewing outside data, placing orders, documenting exam and treatment plan, and counseling patient) on 10/01.
--- NOTE | 2024-10-01 19:18 | PC.NURSE ---
This RN and MARCY Gtz at the bedside. FF @ U/ -3. Scant bleeding. fresh pad placed.
--- NOTE | 2024-10-01 19:24 | PC.NURSE ---
Postop Note Patient arrived to room 229 from PACU at approx 1855. Transferred to bed via slider bed. Alert and oriented x3, RA SpO2 97%. BP 90s/50s, phenylephrine at 0.25 mcg/kg/min and connected to right central line, SR in the 90s. Casillas catheter in place and draining clear yellow urine. Significant other at bedside with baby. Oriented to room and to call light/bed/tv controls. Call light within reach. Report given to Yaquelin VIDAL.
--- NOTE | 2024-10-01 19:40 | PC.NURSE ---
Assumed partial care of pt in relation to fundal assessments. Received report from MARCY Gipson.
--- NOTE | 2024-10-01 20:03 | PC.NURSE ---
This RN performed fundal check at 1954. Fundus was firm U/3 and midline. RN saw no bleeding or discharge from vaginal area.
[2024-10-01 20:15] LABS: Hematocrit 22.1 % (36-46); Hemoglobin 7.6 g/dL (12.0-16.0); Mean Corpuscular HGB Conc 34.3 % (30-36); Mean Corpuscular Hemoglobin 29.5 PG (26-34); Mean Corpuscular Volume 85.9 fL (80-100); Platelet Count 276 X10^3/uL (150-400); Red Blood Cell Count 2.58 X10^6/uL (4.0-5.2); Red Cell Distribution Width 15.6 % (11.6-14.8); White Blood Cell Count 19.2 X10^3/uL (4.5-11.0)
[2024-10-01 20:41] LABS: INR 1.1 (0.9-1.3); Prothrombin Time 12.7 SECONDS (9.4-12.5)
[2024-10-01 20:42] LABS: Fibrinogen 343 mg/dL (238-498)
[2024-10-01 20:44] LABS: PTT Partial Thromboplastin Tim 30 SECONDS (25.1-36.5)
[2024-10-01 20:48] LABS: D Dimer 10371 ng/ml (<500)
--- NOTE | 2024-10-01 21:03 | PC.NURSE ---
This RN at bedside at 2055. RN assessed patient and performed a fundal assessment. Fudus is firm, midline, and U/3. Scant lochia rubra observed on pad.
[2024-10-01] MEDS: GENTAMICIN 450 MG in SODIUM CHLORIDE 0.9% 100 ML 111.25 MG IV (21:29)
--- NOTE | 2024-10-01 22:04 | PC.NURSE ---
RN at bedside at 2153 to perform fundal assessment. Fundus is firm, midline, U/3. Scant rubra noted on pad.
--- NOTE | 2024-10-01 22:54 | PC.NURSE ---
RN at bedside to perform fundal assessment. Fundus is firm, midline, U/3. No new bleeding. Scant rubra on pad from previous assessments.
[2024-10-01] MEDS: PHENYLEPHRINE 20,000 MCG in DEXTROSE 5% IN WATER 250 ML 51.029 MCG IV (23:35)
[2024-10-02] VITALS (85 sets, daily range): BP systolic 70–113; BP diastolic 41–61; PULSE 53–107; RESP 15–27; TEMP 35.8–36.6; O2SAT 89–99
[2024-10-02] MEDS: CLINDAMYCIN 900 MG/50 ML PIGGYBACK 50 MG IV ×5 (00:54→23:52)
--- NOTE | 2024-10-02 01:10 | PC.NURSE ---
RN at bedside at 0052. RN performed fundal assessment. Fundus is firm, midline, U/3. No visible discharge. Scant rubra on pad from previous checks. RN reinforced education regarding safe sleep practices for pt and infant at bedside.
[2024-10-02 01:22] LABS: Hematocrit 23.1 % (36-46)
[2024-10-02] MEDS: IBUPROFEN 600 MG TABLET PO ×2 (01:32→11:12)
[2024-10-02] MEDS: ACETAMINOPHEN 325 MG TABLET 650 MG PO ×2 (01:32→11:12)
--- NOTE | 2024-10-02 03:07 | PC.NURSE ---
RN at bedside for fundal assessment at 0257. Fundus is firm, midline, and U/3. No discharge or rubra noted during fundal assessment. This RN weighed pink jannette pad at 7.3g at 0303.
[2024-10-02] MEDS: PHENYLEPHRINE 20,000 MCG in DEXTROSE 5% IN WATER 250 ML 51.029 MCG IV (05:20)
[2024-10-02 05:51] LABS: Add Manual Diff / Slide Review NO; Basophils Absolute Auto 0 /uL (0-100); Basophils Percent Auto 0.2 % (0-2); Eosinophils Absolute Auto 0 /uL (0-450); Hematocrit 21.6 % (36-46); Hemoglobin 7.4 g/dL (12.0-16.0); Lymphocytes Absolute Auto 900 /uL (1100-4500); Lymphocytes Percent Auto 5.1 % (25-40); Mean Corpuscular HGB Conc 34.1 % (30-36); Mean Corpuscular Hemoglobin 28.1 PG (26-34); Mean Corpuscular Volume 82.5 fL (80-100); Monocytes Absolute Auto 1000 /uL (0-900); Monocytes Percent Auto 5.4 % (3-14); Neutrophils Absolute Auto 16300 /uL (1500-7000); Neutrophils Percent Auto 89.3 % (50-75); Platelet Count 279 X10^3/uL (150-400); Red Blood Cell Count 2.62 X10^6/uL (4.0-5.2); Red Cell Distribution Width 18.3 % (11.6-14.8); White Blood Cell Count 18.2 X10^3/uL (4.5-11.0)
[2024-10-02 05:57] LABS: Alanine Aminotransferase 15 IU/L (<35); Albumin 2.3 g/dL (3.5-5.0); Alkaline Phosphatase 88 U/L (38-126); Aspartate Aminotransferase 19 IU/L (14-36); BUN Creatinine Ratio 14.3 (6-22); Bilirubin Total 0.2 mg/dL (0.2-1.3); Blood Urea Nitrogen 7 mg/dL (7-17); Calcium 8.2 mg/dL (8.4-10.2); Carbon Dioxide 21 mmol/L (22-32); Chloride 108 mmol/L (98-107); Estimated Glomerular Filt Rate > 60 mL/min (>60); Globulin 2.2 g/dL (1.7-4.1); Glucose 116 mg/dL (70-100); HEMOLYSIS 19 (0-50); Potassium 3.9 mmol/L (3.4-5.1); Sodium 134 mmol/L (137-145); Total Protein 4.5 g/dL (6.3-8.2)
[2024-10-02 06:03] LABS: Gentamicin Random 1.5 ug/mL (1.0-8.0)
[2024-10-02] MEDS: LACTATED RINGERS 1,000 ML 100 ML IV (06:05)
--- NOTE | 2024-10-02 06:47 | PC.NURSE ---
This RN at bedside at 0631 to perform fundal assessment. Fundus is firm U/3 with scant rubra. This RN discussed labs with GAS JOCKEY who reported them to Hospitalist.
--- NOTE | 2024-10-02 06:51 | PC.NURSE ---
manager of information RN note pt A&Ox4, c/o mild discomfort to abd, analgesics given with effect, scant vaginal bleeding, OB RN assessed pt per orders see their notes, hypotensive, stu gtt titrated to keep MAP >65, IV fluids infusing, no edema, diaphoretic at times, rapp draining clear yellow urine, labs reported to MDs, orders for 1 unit PRBC, post H&H improved, am labs showed a slight drop in H&H, values reported to MD, sig. other and infant at bedside overnight, call chen within reach, pt encouraged to have sleep in bassinet on back when pt is sleeping. Report given to dayshift RN, care continued.
--- NOTE | 2024-10-02 07:04 | PC.NURSE ---
This RN gave report to MARCY Gipson. This RN relinquished care of pt.
--- NOTE | 2024-10-02 07:30 | PM.PN.1 ---
Subjective Subjective Interval history: Summary: he patient was seen in consultation. She was a 39-year-old 0-3. She was day 11. Her delivery was complicated by hemorrhage and retained placenta. Today she had D&C for her placenta removal and this is complicated by hemorrhage. She lost over 2 L of blood. She was fluid resuscitated and given 3 units of packed cells, 1 of cryoprecipitate, and 2 of FFP. A uterine tamponade device was placed. The patient had persistent hypotension, and Reji-Synephrine was infused. A central venous catheter was placed in the right IJ at approximately 6:00 p.m. by anesthesia. The patient improved clinically and I saw her in the PACU. She was doing well with a blood pressure of 90/50. She does have chronic hypotension with systolic pressures near 90. Her uterine tamponade devices removed and there was no evidence of bleeding. She has a very low dose of Reji-Synephrine infusing. S: She feels much better today, no pain or dyspnea. No vaginal bleeding. She was on a low-dose of Reji-Synephrine and receiving another unit of blood. She did receive a unit of blood last night. This is her 5th unit of packed cells. She received 2 of FFP 1 of cryoprecipitate yesterday. Exam Vital Signs (past 8 hours): - 10/01/24 23:45 10/02/24 00:00 10/02/24 00:00 Temperature 97.0 F L Pulse Rate 77 72 Respiratory Rate 19 18 Blood Pressure 93/50 L 99/54 L Pulse Oximetry 98 99 Oxygen Delivery Method Room Air Oxygen Flow Rate 0 0 10/02/24 00:00 10/02/24 00:15 10/02/24 00:30 Temperature Pulse Rate 72 68 62 Respiratory Rate 18 19 18 Blood Pressure 99/54 L 108/59 L 103/56 L Pulse Oximetry 99 99 98 Oxygen Delivery Method Oxygen Flow Rate 0 0 0 10/02/24 00:45 10/02/24 01:00 10/02/24 01:15 Temperature Pulse Rate 62 80 67 Respiratory Rate 19 18 18 Blood Pressure 109/61 94/53 L 96/54 L Pulse Oximetry 99 98 98 Oxygen Delivery Method Oxygen Flow Rate 0 0 0 10/02/24 01:30 10/02/24 01:45 10/02/24 02:00 Temperature Pulse Rate 76 67 62 Respiratory Rate 18 19 21 Blood Pressure 97/58 L 103/58 L 108/56 L Pulse Oximetry 99 99 98 Oxygen Delivery Method Oxygen Flow Rate 0 0 0 10/02/24 02:15 10/02/24 02:30 10/02/24 02:45 Temperature Pulse Rate 71 74 74 Respiratory Rate 19 19 20 Blood Pressure 99/56 L 99/58 L 88/53 L Pulse Oximetry 98 98 98 Oxygen Delivery Method Oxygen Flow Rate 0 0 0 10/02/24 03:00 10/02/24 03:15 10/02/24 03:30 Temperature Pulse Rate 81 75 69 Respiratory Rate 20 20 17 Blood Pressure 93/52 L 94/53 L 94/54 L Pulse Oximetry 98 97 98 Oxygen Delivery Method Oxygen Flow Rate 0 0 0 10/02/24 03:45 10/02/24 04:00 10/02/24 04:15 Temperature 97.2 F L Pulse Rate 66 70 65 Respiratory Rate 17 16 16 Blood Pressure 87/51 L 84/54 L 88/54 L Pulse Oximetry 97 98 97 Oxygen Delivery Method Oxygen Flow Rate 0 0 0 10/02/24 04:30 10/02/24 04:45 10/02/24 05:00 Temperature Pulse Rate 63 65 73 Respiratory Rate 17 17 20 Blood Pressure 93/54 L 98/53 L 90/51 L Pulse Oximetry 98 98 98 Oxygen Delivery Method Oxygen Flow Rate 0 0 0 10/02/24 05:15 10/02/24 05:30 10/02/24 05:45 Temperature Pulse Rate 78 61 64 Respiratory Rate 18 17 17 Blood Pressure 79/46 L 99/54 L 95/51 L Pulse Oximetry 97 99 99 Oxygen Delivery Method Oxygen Flow Rate 0 0 0 10/02/24 06:00 10/02/24 06:15 10/02/24 06:45 Temperature Pulse Rate 59 L 67 64 Respiratory Rate 22 23 16 Blood Pressure 99/54 L 102/58 L Pulse Oximetry 98 99 98 Oxygen Delivery Method Oxygen Flow Rate 0 0 0 Oxygen Delivery Method Room Air Oxygen Flow Rate 0 Narrative Exam Narrative: NAD, alert and oriented. Fluent speech. Right IJ CVL. Lungs are clear, normal rate and effort. Heart is regular, no murmur gallop or rub. Abdomen is soft, non distended. Extremities are free of edema. Objective Labs 10/02/24 05:15 02/26/25 05:15 Labs: Laboratory Results - last 24 hr 09/30/24 10/01/24 10/01/24 18:44 15:33 20:05 WBC 16.1 H D 19.2 H RBC 2.90 L 2.58 L Hgb 8.4 L 7.6 L Hct 25.4 L 22.1 L MCV 87.8 D 85.9 MCH 29.0 29.5 MCHC 33.1 34.3 RDW 16.8 H 15.6 H Plt Count 342 276 Neut % (Auto) Lymph % (Auto) [place] % (Auto) Eos % (Auto) Baso % (Auto) Neut # (Auto) Lymph # (Auto) [place] # (Auto) Eos # (Auto) Baso # (Auto) PT 13.6 H 12.7 H INR 1.2 1.1 APTT 34 30 Fibrinogen 352 343 D-Dimer 65830 H Sodium Potassium Chloride Carbon Dioxide BUN Creatinine Estimated GFR BUN/Creatinine Ratio Glucose Calcium Total Bilirubin AST ALT Alkaline Phosphatase Total Protein Albumin Globulin Albumin/Globulin Ratio Random Gentamicin Blood Type O Positive Antibody Screen Negative Crossmatch See Detail 10/02/24 10/02/24 01:00 05:15 WBC 18.2 H RBC 2.62 L Hgb 8.0 L 7.4 L Hct 23.1 L 21.6 L MCV 82.5 D MCH 28.1 MCHC 34.1 RDW 18.3 H Plt Count 279 Neut % (Auto) 89.3 H Lymph % (Auto) 5.1 L [place] % (Auto) 5.4 Eos % (Auto) 0.0 L Baso % (Auto) 0.2 Neut # (Auto) 74547 H Lymph # (Auto) 900 L [place] # (Auto) 1000 H Eos # (Auto) 0 Baso # (Auto) 0 PT INR APTT Fibrinogen D-Dimer Sodium 134 L Potassium 3.9 Chloride 108 H Carbon Dioxide 21 L BUN 7 Creatinine 0.49 L Estimated GFR > 60 BUN/Creatinine Ratio 14.3 Glucose 116 H Calcium 8.2 L Total Bilirubin 0.2 AST 19 ALT 15 Alkaline Phosphatase 88 Total Protein 4.5 L Albumin 2.3 L Globulin 2.2 Albumin/Globulin Ratio 1.0 Random Gentamicin 1.5 Blood Type Antibody Screen Crossmatch [facility] Medical History Cervical dysplasia Migraine with aura Meningitis spinal Surgical History History of gynecological procedure (~2010) History of oral surgery Family History Mother Substance abuse COPD (chronic obstructive pulmonary disease) Collapsed lung Broken heart syndrome Father Family estrangement Brother Rheumatoid arthritis Grandfather Skin cancer Grandmother Stroke Heart attack Sister Cervical cancer Asthma Social History marital status: unmarried,living together number of children: 1 household members: spouse, significant other and children lives independently: Yes caregiver/support person: Yes housing: house pets and animals: Yes (2 cats, 2 dogs) education level: high school occupational status: employed current occupational exposures/hazards: No special daniel needs: No travel history: over 6 months ago seatbelt use: always water heater temp set < 120 deg: Yes working smoke detector in home: Yes fire extinguisher in home: Yes carbon monox detector in home: Yes firearms in home: No do you feel safe at home: Yes Smoking Status: Current every day smoker Tobacco: How many years used: 21 second hand exposure: Yes (s/o smokes outdoors) alcohol intake: former substance use type: does not use during the past year weight has: increased > 10 lbs well-balanced diet: rarely or never daily servings fruits/ve-1 caffeine: Yes (aware of limits; has mostly been drinking decaf since ) Type(s) of exercise: none additional social history: Patient is still legally , although and actively seeking divorce, has a restraining order in place against her soon-to-be ex- Scooter. 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 Assessment & Plan Assessment & Plan narrative: 1. Post D&C for retained placenta, complicated by massive hemorrhage. Improved. 2. Acute blood loss anemia, active and improving. 3. Hemorrhagic shock, active and improving. Plan: -admit to the ICU -continue IV fluids -5th unit PRBC now, wean off pressors. MAP 60 (chronic low BP). ASTRID: 10/03. Time-Based Coding :: [TOTAL MINUTES] spent with patient and on the chart (including review of chart, obtaining history, exam, reviewing outside data, placing orders, documenting exam and treatment plan, and counseling patient) on [DATE]. Quality VTE Deep Vein Thrombosis/Pulmonary Embolism Present on Admission: No
--- NOTE | 2024-10-02 08:09 | P.PN_ITS ---
Subjective Subjective Date Patient Seen: 10/02/24 Time Patient Seen: 07:30 Interval history: The pt this morning reports feeling improved from yesterday. She continues to feel sweaty but less clammy. She denies any palpitations, SOB, chest pain. She has not yet been out of bed. She denies any significant pain, mild cramping RLQ. She has not had any gushes of blood since her D&C yesterday. Exam Vital Signs (past 8 hours): - 10/02/24 00:15 10/02/24 00:30 10/02/24 00:45 Temperature Pulse Rate 68 62 62 Respiratory Rate 19 18 19 Blood Pressure 108/59 L 103/56 L 109/61 Pulse Oximetry 99 98 99 Oxygen Flow Rate 0 0 0 10/02/24 01:00 10/02/24 01:15 10/02/24 01:30 Temperature Pulse Rate 80 67 76 Respiratory Rate 18 18 18 Blood Pressure 94/53 L 96/54 L 97/58 L Pulse Oximetry 98 98 99 Oxygen Flow Rate 0 0 0 10/02/24 01:45 10/02/24 02:00 10/02/24 02:15 Temperature Pulse Rate 67 62 71 Respiratory Rate 19 21 19 Blood Pressure 103/58 L 108/56 L 99/56 L Pulse Oximetry 99 98 98 Oxygen Flow Rate 0 0 0 10/02/24 02:30 10/02/24 02:45 10/02/24 03:00 Temperature Pulse Rate 74 74 81 Respiratory Rate 19 20 20 Blood Pressure 99/58 L 88/53 L 93/52 L Pulse Oximetry 98 98 98 Oxygen Flow Rate 0 0 0 10/02/24 03:15 10/02/24 03:30 10/02/24 03:45 Temperature Pulse Rate 75 69 66 Respiratory Rate 20 17 17 Blood Pressure 94/53 L 94/54 L 87/51 L Pulse Oximetry 97 98 97 Oxygen Flow Rate 0 0 0 10/02/24 04:00 10/02/24 04:15 10/02/24 04:30 Temperature 97.2 F L Pulse Rate 70 65 63 Respiratory Rate 16 16 17 Blood Pressure 84/54 L 88/54 L 93/54 L Pulse Oximetry 98 97 98 Oxygen Flow Rate 0 0 0 10/02/24 04:45 10/02/24 05:00 10/02/24 05:15 Temperature Pulse Rate 65 73 78 Respiratory Rate 17 20 18 Blood Pressure 98/53 L 90/51 L 79/46 L Pulse Oximetry 98 98 97 Oxygen Flow Rate 0 0 0 10/02/24 05:30 10/02/24 05:45 10/02/24 06:00 Temperature Pulse Rate 61 64 59 L Respiratory Rate 17 17 22 Blood Pressure 99/54 L 95/51 L 99/54 L Pulse Oximetry 99 99 98 Oxygen Flow Rate 0 0 0 10/02/24 06:15 10/02/24 06:45 Temperature Pulse Rate 67 64 Respiratory Rate 23 16 Blood Pressure 102/58 L Pulse Oximetry 99 98 Oxygen Flow Rate 0 0 Oxygen Delivery Method Room Air Oxygen Flow Rate 0 Narrative Exam Narrative: Gen: NAD, sitting comfortably in bed, appears pale CV: RRR, no murmurs Resp: clear to auscultation bilaterally Abd: soft, nontender, nondistended, normoactive bowel sounds Ext: no edema Objective Labs 10/02/24 05:15 10/02/24 05:15 Labs: Laboratory Results - last 24 hr 09/30/24 10/01/24 10/01/24 18:44 15:33 20:05 WBC 16.1 H D 19.2 H RBC 2.90 L 2.58 L Hgb 8.4 L 7.6 L Hct 25.4 L 22.1 L MCV 87.8 D 85.9 MCH 29.0 29.5 MCHC 33.1 34.3 RDW 16.8 H 15.6 H Plt Count 342 276 Neut % (Auto) Lymph % (Auto) Stark % (Auto) Eos % (Auto) Baso % (Auto) Neut # (Auto) Lymph # (Auto) Stark # (Auto) Eos # (Auto) Baso # (Auto) PT 13.6 H 12.7 H INR 1.2 1.1 APTT 34 30 Fibrinogen 352 343 D-Dimer 58921 H Sodium Potassium Chloride Carbon Dioxide BUN Creatinine Estimated GFR BUN/Creatinine Ratio Glucose Calcium Total Bilirubin AST ALT Alkaline Phosphatase Total Protein Albumin Globulin Albumin/Globulin Ratio Random Gentamicin Blood Type O Positive Antibody Screen Negative Crossmatch See Detail 10/02/24 10/02/24 01:00 05:15 WBC 18.2 H RBC 2.62 L Hgb 8.0 L 7.4 L Hct 23.1 L 21.6 L MCV 82.5 D MCH 28.1 MCHC 34.1 RDW 18.3 H Plt Count 279 Neut % (Auto) 89.3 H Lymph % (Auto) 5.1 L Stark % (Auto) 5.4 Eos % (Auto) 0.0 L Baso % (Auto) 0.2 Neut # (Auto) 19983 H Lymph # (Auto) 900 L Stark # (Auto) 1000 H Eos # (Auto) 0 Baso # (Auto) 0 PT INR APTT Fibrinogen D-Dimer Sodium 134 L Potassium 3.9 Chloride 108 H Carbon Dioxide 21 L BUN 7 Creatinine 0.49 L Estimated GFR > 60 BUN/Creatinine Ratio 14.3 Glucose 116 H Calcium 8.2 L Total Bilirubin 0.2 AST 19 ALT 15 Alkaline Phosphatase 88 Total Protein 4.5 L Albumin 2.3 L Globulin 2.2 Albumin/Globulin Ratio 1.0 Random Gentamicin 1.5 Blood Type Antibody Screen Crossmatch [facility] Medical History Cervical dysplasia Migraine with aura Meningitis spinal Surgical History History of gynecological procedure (~2010) History of oral surgery Family History Mother Substance abuse COPD (chronic obstructive pulmonary disease) Collapsed lung Broken heart syndrome Father Family estrangement Brother Rheumatoid arthritis Grandfather Skin cancer Grandmother Stroke Heart attack Sister Cervical cancer Asthma Social History marital status: unmarried,living together number of children: 1 household members: spouse, significant other and children lives independently: Yes caregiver/support person: Yes housing: house pets and animals: Yes (2 cats, 2 dogs) education level: high school occupational status: employed current occupational exposures/hazards: No special daniel needs: No travel history: over 6 months ago seatbelt use: always water heater temp set < 120 deg: Yes working smoke detector in home: Yes fire extinguisher in home: Yes carbon monox detector in home: Yes firearms in home: No do you feel safe at home: Yes Smoking Status: Current every day smoker Tobacco: How many years used: 21 second hand exposure: Yes (s/o smokes outdoors) alcohol intake: former substance use type: does not use during the past year weight has: increased > 10 lbs well-balanced diet: rarely or never daily servings fruits/ve-1 caffeine: Yes (aware of limits; has mostly been drinking decaf since ) Type(s) of exercise: none additional social history: Patient is still legally , although and actively seeking divorce, has a restraining order in place against her soon-to-be ex- Scooter. Advised pt that she should have a HCPOA form drawn up just in case naming her preferred alternative decision maker so that her would never be called to make decisions for her in an emergency; provided pt with resource for free POA form; she works in a [employer] and can have it notarized at work. Assessment & Plan Assessment & Plan narrative: Pt is a 39yo PPD # 13 complicated by retained placenta requiring D&C for removal, and significant hemorrhage s/p 2 units PRBCs here with ongoing heavy bleeding, lightheadedness, and documented Tmax 101.7F at home. Now POD #1 s/p repeat D&C with hemorrhage for retained products of conception, with resultant hemorrhagic shock. 1) Hemorrhagic shock: Pt with additional 2500cc blood loss with D&C. Currently on 0.75mcg/min Phenylephrine with BPs stable. BP naturally runs in the 90s-low 100s/60s. Thus far has received 4 units PRBCs, 2 FFP, 1 Cryo this hospitalization. - Hospitalists consulted, appreciate recommendations and care - Continue to work on Phenylephrine wean - Transfuse additional unit PRBCs this morning - Continue to trend CBC 2) Endometritis: Pt with fever, mild uterine tenderness, tachycardia at presentation. No evidence of sepsis. No documented fever overnight, but Tmax 100.1F on Tylenol/Ibuprofen. WBC count remains elevated at 18.2. - F/U blood cultures, currently no growth - IV Clindamycin and Gentamycin; pt with Amoxicillin allergy - Tylenol/Ibuprofen PRN for pain/fever, pt declines need for additional agents for pain control - Probiotic due to Clindamycin 3) Acute blood loss anemia due to hemorrhage at D&C: As above s/p multiple infusions. Pt with < 10cc of blood loss overnight after D&C. - Continue iron supplement - PRBC infusion as above - Continue to trend H/H - PO Methergine q6hrs - Pads to be weighed for QBL 3) state: - Continue vitamin FEN: General diet DVT ppx: SCDs due to ongoing bleeding Code: Full Dispo: Pending stabilization in H/H, stable off pressure support. Time-Based Coding :: 45 spent with patient and on the chart (including review of chart, obtaining history, exam, reviewing outside data, placing orders, documenting exam and treatment plan, and counseling patient) on 10/02/24. 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
--- NOTE | 2024-10-02 09:10 | P.PN_ITS ---
Subjective Subjective Date Patient Seen: 10/02/24 Time Patient Seen: 08:15 Interval history: Pt seen in ICU after D&C and large blood loss. States not much bleeding through the night. Will get another PRBC today for H&H 7&24. Then will try getting out of bed. CL dressing noted to be not well adherant to her skin. Asked RN to clean and re-bandage CL dressing. Exam Vital Signs (past 8 hours): - 10/02/24 01:15 10/02/24 01:30 10/02/24 01:45 Temperature Pulse Rate 67 76 67 Respiratory Rate 18 18 19 Blood Pressure 96/54 L 97/58 L 103/58 L Pulse Oximetry 98 99 99 Oxygen Flow Rate 0 0 0 10/02/24 02:00 10/02/24 02:15 10/02/24 02:30 Temperature Pulse Rate 62 71 74 Respiratory Rate 21 19 19 Blood Pressure 108/56 L 99/56 L 99/58 L Pulse Oximetry 98 98 98 Oxygen Flow Rate 0 0 0 10/02/24 02:45 10/02/24 03:00 10/02/24 03:15 Temperature Pulse Rate 74 81 75 Respiratory Rate 20 20 20 Blood Pressure 88/53 L 93/52 L 94/53 L Pulse Oximetry 98 98 97 Oxygen Flow Rate 0 0 0 10/02/24 03:30 10/02/24 03:45 10/02/24 04:00 Temperature 97.2 F L Pulse Rate 69 66 70 Respiratory Rate 17 17 16 Blood Pressure 94/54 L 87/51 L 84/54 L Pulse Oximetry 98 97 98 Oxygen Flow Rate 0 0 0 10/02/24 04:15 10/02/24 04:30 10/02/24 04:45 Temperature Pulse Rate 65 63 65 Respiratory Rate 16 17 17 Blood Pressure 88/54 L 93/54 L 98/53 L Pulse Oximetry 97 98 98 Oxygen Flow Rate 0 0 0 10/02/24 05:00 10/02/24 05:15 10/02/24 05:30 Temperature Pulse Rate 73 78 61 Respiratory Rate 20 18 17 Blood Pressure 90/51 L 79/46 L 99/54 L Pulse Oximetry 98 97 99 Oxygen Flow Rate 0 0 0 10/02/24 05:45 10/02/24 06:00 10/02/24 06:15 Temperature Pulse Rate 64 59 L 67 Respiratory Rate 17 22 23 Blood Pressure 95/51 L 99/54 L Pulse Oximetry 99 98 99 Oxygen Flow Rate 0 0 0 10/02/24 06:45 10/02/24 08:33 10/02/24 08:48 Temperature 96.4 F L 96.6 F L Pulse Rate 64 67 75 Respiratory Rate 16 17 19 Blood Pressure 102/58 L 95/59 L 84/50 L Pulse Oximetry 98 Oxygen Flow Rate 0 Oxygen Delivery Method Room Air Oxygen Flow Rate 0 Objective Labs 10/02/24 05:15 10/02/24 05:15 Labs: Laboratory Results - last 24 hr 09/30/24 10/01/24 10/01/24 18:44 15:33 20:05 WBC 16.1 H D 19.2 H RBC 2.90 L 2.58 L Hgb 8.4 L 7.6 L Hct 25.4 L 22.1 L MCV 87.8 D 85.9 MCH 29.0 29.5 MCHC 33.1 34.3 RDW 16.8 H 15.6 H Plt Count 342 276 Neut % (Auto) Lymph % (Auto) Metcalfe % (Auto) Eos % (Auto) Baso % (Auto) Neut # (Auto) Lymph # (Auto) [place]fe # (Auto) Eos # (Auto) Baso # (Auto) PT 13.6 H 12.7 H INR 1.2 1.1 APTT 34 30 Fibrinogen 352 343 D-Dimer 44727 H Sodium Potassium Chloride Carbon Dioxide BUN Creatinine Estimated GFR BUN/Creatinine Ratio Glucose Calcium Total Bilirubin AST ALT Alkaline Phosphatase Total Protein Albumin Globulin Albumin/Globulin Ratio Random Gentamicin Blood Type O Positive Antibody Screen Negative Crossmatch See Detail 10/02/24 10/02/24 01:00 05:15 WBC 18.2 H RBC 2.62 L Hgb 8.0 L 7.4 L Hct 23.1 L 21.6 L MCV 82.5 D MCH 28.1 MCHC 34.1 RDW 18.3 H Plt Count 279 Neut % (Auto) 89.3 H Lymph % (Auto) 5.1 L Metcalfe % (Auto) 5.4 Eos % (Auto) 0.0 L Baso % (Auto) 0.2 Neut # (Auto) 36099 H Lymph # (Auto) 900 L Metcalfe # (Auto) 1000 H Eos # (Auto) 0 Baso # (Auto) 0 PT INR APTT Fibrinogen D-Dimer Sodium 134 L Potassium 3.9 Chloride 108 H Carbon Dioxide 21 L BUN 7 Creatinine 0.49 L Estimated GFR > 60 BUN/Creatinine Ratio 14.3 Glucose 116 H Calcium 8.2 L Total Bilirubin 0.2 AST 19 ALT 15 Alkaline Phosphatase 88 Total Protein 4.5 L Albumin 2.3 L Globulin 2.2 Albumin/Globulin Ratio 1.0 Random Gentamicin 1.5 Blood Type Antibody Screen Crossmatch [facility] Medical History Cervical dysplasia Migraine with aura Meningitis spinal Surgical History History of gynecological procedure (~2010) History of oral surgery Family History Mother Substance abuse COPD (chronic obstructive pulmonary disease) Collapsed lung Broken heart syndrome Father Family estrangement Brother Rheumatoid arthritis Grandfather Skin cancer Grandmother Stroke Heart attack Sister Cervical cancer Asthma Social History marital status: unmarried,living together number of children: 1 household members: spouse, significant other and children lives independently: Yes caregiver/support person: Yes housing: house pets and animals: Yes (2 cats, 2 dogs) education level: high school occupational status: employed current occupational exposures/hazards: No special daniel needs: No travel history: over 6 months ago seatbelt use: always water heater temp set < 120 deg: Yes working smoke detector in home: Yes fire extinguisher in home: Yes carbon monox detector in home: Yes firearms in home: No do you feel safe at home: Yes Smoking Status: Current every day smoker Tobacco: How many years used: 21 second hand exposure: Yes (s/o smokes outdoors) alcohol intake: former substance use type: does not use during the past year weight has: increased > 10 lbs well-balanced diet: rarely or never daily servings fruits/ve-1 caffeine: Yes (aware of limits; has mostly been drinking decaf since ) Type(s) of exercise: none additional social history: Patient is still legally , although and actively seeking divorce, has a restraining order in place against her soon-to-be ex- Scooter. 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 Assessment & Plan Time-Based Coding :: [TOTAL MINUTES] spent with patient and on the chart (including review of chart, obtaining history, exam, reviewing outside data, placing orders, documenting exam and treatment plan, and counseling patient) on [DATE]. Quality VTE Deep Vein Thrombosis/Pulmonary Embolism Present on Admission: No
[2024-10-02] MEDS: PRENATAL VIT,CALC/IRON/FOLIC 1 TABLET 1 TAB PO (09:31)
[2024-10-02] MEDS: FERROUS SULFATE 325 MG TABLET PO ×2 (09:31→17:23)
--- NOTE | 2024-10-02 11:24 | PC.NURSE ---
0845: This RN and MARCY Gtz at the bedside. Fundus F midline -3. Scant bleeding. Weighed pad, 6cc blood measured. Fresh pad placed. Patient tolerated well. 1120: This RN and MACRY Gtz at the bedside. Fundus F midline, -3. Bleeding scant with one very small amount of blood on pad. Patient tolerated well.
[2024-10-02] MEDS: PHENYLEPHRINE 20,000 MCG in DEXTROSE 5% IN WATER 250 ML 34.019 MCG IV (11:26)
[2024-10-02 12:11] LABS: Hematocrit 23.5 % (36-46); Mean Corpuscular Hemoglobin 27.7 PG (26-34); Mean Corpuscular Volume 81.5 fL (80-100); Platelet Count 267 X10^3/uL (150-400); Red Blood Cell Count 2.88 X10^6/uL (4.0-5.2); Red Cell Distribution Width 17.6 % (11.6-14.8)
--- NOTE | 2024-10-02 15:11 | CM.DANOTE ---
Initial DCP Assessment Note Pt is a 39 yo female, resident of [place]. According to DR Real's prog note: PPD # 13 complicated by retained placenta requiring D&C for removal, and significant hemorrhage s/p 2 units PRBCs here with ongoing heavy bleeding, lightheadedness, and documented Tmax 101.7F at home. Now POD #1 s/p repeat D&C with hemorrhage for retained products of conception, with resultant hemorrhagic shock. PCP: Keisha Denton Payer: Tiera Reviewed chart, pt discussed in multidisciplinary rounds this morning. Patient lives independently with SO and family, expected to return upon discharge. ASTRID over the next 24-48 hrs. According to record review, patient is navigating a divorce and has a restraining order against legal spouse, Scooter. Patient may benefit from a visit 10/03. No barriers identified at this time to patient's safe discharge home w/family to assist; close outpatient f/u recommended. CM team will plan to follow clinical course closely in case any DC needs or concerns arise. 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 Yes: declined Advance Directives on File No History Provided By Medical Record Prior Living Arrangements House Household Members significant other,children Type of transporation used prior to Drives own vehicle admit Independent with ADL's Yes Is patient alert and oriented? Yes Barriers to Discharge No Discharge Plan Home Transportation Arrangement Family
--- NOTE | 2024-10-02 15:18 | PC.NURSE ---
Addendum entered by Nazanin Ashton R.N. 10/02/24 18:23: Casillas catheter ok to be removed per Dr. Real, pt is requesting removal. Casillas catheter removed at 1810, pt tolerated well. Sitting up in chair, denies pain. Original Note: Day Shift Note Patient alert and oriented x4. RA in the upper 90s SpO2. HR SB this AM in the 50s but currently in the 80-90s SR. Pt received 1 unit PRBCs, complete at 1050 and tolerated well. BP and pressor requirements reviewed with Dr. Real and Dr. Coates, goal MAP is [address] Coates based on patient history of baseline low blood pressure (90s systolic). Phenylephrine gtt weaned to off at 1315 and pt MAP 60 and above (80s/50s, see VS trends). Pt sat at side of bed and was transferred 1 person minimal assist to chair. Pt reported initial dizziness when first sitting up but this resolved within 5 min and BP remained in the 90s/50s throughout. Labor and delivery RNs Annabella and Leonela present and assisting for first transfer. Pt currently sitting up in chair with significant other and baby in room, denies any needs at this time. Call light within reach, using appropriately to make needs known.
--- NOTE | 2024-10-02 17:13 | PC.NURSE ---
1430: This RN and RN Warren Gtz to bedside. Fundus Firm -3, bleeding scant. Assisted DIRECTOR OF SUSTAINABILITY PROGRAMS to transfer patient to chair. Tolerated well. Weighed pad underneath, running QBL 16.3 cc.
[2024-10-02] MEDS: GENTAMICIN 450 MG in SODIUM CHLORIDE 0.9% 100 ML 111.25 MG IV (18:16)
[2024-10-02] MEDS: DOCUSATE 100 MG CAPSULE PO (18:16)
--- NOTE | 2024-10-02 18:30 | PC.NURSE ---
1530- This RN and MARCY Leon at the bedside. Pt sitting up in the chair at the bedside holding infant. reports feeling better denies any gushes or vaginal bleeding. Pad remains clean. Pt reports to be stable per ASSISTANT LOAN PROCESSOR. Maintaining BPs in the absence of medications. Discussed with pt what the next few days might look like and what to look out for going home, pt verbalized understanding.
--- NOTE | 2024-10-02 20:46 | PC.NURSE ---
2010: OB RN to bedside rounding with OPERATIONS SPECIALISTS. Pt awake, feeling better, bottle feeding . Uterus -3, firm, midline, scant lochia. Casillas out, monitor for void.
[2024-10-03] VITALS (22 sets, daily range): BP systolic 80–116; BP diastolic 44–60; PULSE 68–113; RESP 14–18; TEMP 35.5–36.9; O2SAT 89–98
--- NOTE | 2024-10-03 00:14 | PC.NURSE ---
Awake, uterus at -3, very scant brownish lochia, pt has voided a sufficient amount. BP running low, primary RETORT PRE COOKER aware. H/H recheck upcoming. Pt feeling a bit dizzy.
[2024-10-03 01:28] LABS: Hemoglobin 6.9 g/dL (12.0-16.0)
[2024-10-03 01:29] LABS: Hematocrit 19.9 % (36-46)
--- NOTE | 2024-10-03 02:26 | PC.NURSE ---
Critical H&H, PRBCs infusing, pt lightheaded while low semi fowlers, assisted to BSC, voided 450ml, clear yellow UOP, very scant lochia, lt brown, new pad, no VB when OOB, uterus -3, ABD soft, denies pain. GROUND MIXER aware. MD notified via GROUND MIXER.
[2024-10-03] MEDS: CLINDAMYCIN 900 MG/50 ML PIGGYBACK 50 MG IV (05:37)
[2024-10-03 06:01] LABS: Add Manual Diff / Slide Review NO; Basophils Absolute Auto 100 /uL (0-100); Basophils Percent Auto 0.8 % (0-2); Eosinophils Absolute Auto 100 /uL (0-450); Eosinophils Percent Auto 1.1 % (2-4); Hematocrit 23.3 % (36-46); Lymphocytes Absolute Auto 1400 /uL (1100-4500); Lymphocytes Percent Auto 14.5 % (25-40); Mean Corpuscular HGB Conc 34.3 % (30-36); Mean Corpuscular Volume 81.8 fL (80-100); Monocytes Absolute Auto 600 /uL (0-900); Monocytes Percent Auto 6.2 % (3-14); Neutrophils Absolute Auto 7500 /uL (1500-7000); Neutrophils Percent Auto 77.4 % (50-75); Platelet Count 222 X10^3/uL (150-400); Red Blood Cell Count 2.84 X10^6/uL (4.0-5.2); Red Cell Distribution Width 17.8 % (11.6-14.8); White Blood Cell Count 9.7 X10^3/uL (4.5-11.0)
[2024-10-03 06:19] LABS: Alanine Aminotransferase 13 IU/L (<35); Albumin 2.4 g/dL (3.5-5.0); Alkaline Phosphatase 76 U/L (38-126); Aspartate Aminotransferase 16 IU/L (14-36); BUN Creatinine Ratio 11.5 (6-22); Bilirubin Total 0.1 mg/dL (0.2-1.3); Blood Urea Nitrogen 7 mg/dL (7-17); Calcium 7.5 mg/dL (8.4-10.2); Carbon Dioxide 23 mmol/L (22-32); Chloride 108 mmol/L (98-107); Estimated Glomerular Filt Rate > 60 mL/min (>60); Globulin 2.4 g/dL (1.7-4.1); Glucose 85 mg/dL (70-100); HEMOLYSIS < 15 (0-50); Potassium 3.4 mmol/L (3.4-5.1); Sodium 137 mmol/L (137-145); Total Protein 4.8 g/dL (6.3-8.2)
--- NOTE | 2024-10-03 06:35 | PC.NURSE ---
Uterus -2 with small lochia alba. Pad weight 18gm. Possibly some of it urine. Voided 900ml.
[2024-10-03] MEDS: FERROUS SULFATE 325 MG TABLET PO ×2 (09:04→17:09)
[2024-10-03] MEDS: PRENATAL VIT,CALC/IRON/FOLIC 1 TABLET 1 TAB PO (09:04)
[2024-10-03] MEDS: DOCUSATE 100 MG CAPSULE PO ×2 (09:04→21:59)
[2024-10-03] MEDS: POTASSIUM CHLORIDE 20 MEQ TAB 40 MEQ PO (09:59)
--- NOTE | 2024-10-03 10:20 | PM.PN.IH.1 ---
Subjective Subjective Date Patient Seen: 10/03/24 Time Patient Seen: 10:21 Interval history: The pt reports that last night before going to bed she was feeling lightheaded. She attributed it to her increasing anxiety. Her blood pressure began trending lower overnight. Repeat H/H was obtained that showed a drop to 6.9/19.9. She received one more unit of PRBCs. The pt reports this morning feeling significantly improved. She feels minimally lightheaded. She denies any fevers or chills. She continues to deny any abdominal pain. Her vaginal bleeding remains scant/minimal. Exam Vital Signs (past 8 hours): - 10/03/24 02:30 10/03/24 02:30 10/03/24 03:00 Temperature Pulse Rate 74 88 Respiratory Rate Blood Pressure 89/51 L 90/55 L Pulse Oximetry 95 96 Oxygen Flow Rate 0 10/03/24 03:00 10/03/24 03:00 10/03/24 03:30 Temperature Pulse Rate 83 81 Respiratory Rate Blood Pressure 90/55 L Pulse Oximetry 96 95 Oxygen Flow Rate 10/03/24 03:30 10/03/24 04:00 10/03/24 04:00 Temperature 97.1 F L Pulse Rate 72 Respiratory Rate 15 Blood Pressure 94/54 L 90/54 L 90/54 L Pulse Oximetry 94 Oxygen Flow Rate 0 10/03/24 04:00 10/03/24 04:30 10/03/24 04:30 Temperature Pulse Rate 77 80 Respiratory Rate Blood Pressure 93/54 L Pulse Oximetry 93 95 Oxygen Flow Rate 10/03/24 05:00 10/03/24 06:00 Temperature Pulse Rate 68 109 H Respiratory Rate Blood Pressure 100/55 L 105/54 L Pulse Oximetry 97 95 Oxygen Flow Rate 0 0 Oxygen Delivery Method Room Air Oxygen Flow Rate 0 Narrative Exam Narrative: Gen: NAD, sitting comfortably in bed, more color in cheeks than previously Abd: soft, nontender, nondistended, no rebound/guarding/rigidity Objective Labs 10/03/24 05:45 10/03/24 05:45 Labs: Laboratory Results - last 24 hr 09/30/24 10/02/24 10/03/24 18:44 12:00 00:30 WBC 16.0 H RBC 2.88 L Hgb 8.0 L 6.9 L* Hct 23.5 L 19.9 L* MCV 81.5 MCH 27.7 MCHC 34.0 RDW 17.6 H Plt Count 267 Neut % (Auto) Lymph % (Auto) [place] % (Auto) Eos % (Auto) Baso % (Auto) Neut # (Auto) Lymph # (Auto) [place] # (Auto) Eos # (Auto) Baso # (Auto) Sodium Potassium Chloride Carbon Dioxide BUN Creatinine Estimated GFR BUN/Creatinine Ratio Glucose Calcium Total Bilirubin AST ALT Alkaline Phosphatase Total Protein Albumin Globulin Albumin/Globulin Ratio Blood Type O Positive Antibody Screen Negative Crossmatch See Detail 10/03/24 05:45 WBC 9.7 RBC 2.84 L Hgb 8.0 L Hct 23.3 L MCV 81.8 MCH 28.0 MCHC 34.3 RDW 17.8 H Plt Count 222 Neut % (Auto) 77.4 H Lymph % (Auto) 14.5 L [place] % (Auto) 6.2 Eos % (Auto) 1.1 L Baso % (Auto) 0.8 Neut # (Auto) 7500 H Lymph # (Auto) 1400 [place] # (Auto) 600 Eos # (Auto) 100 Baso # (Auto) 100 Sodium 137 Potassium 3.4 Chloride 108 H Carbon Dioxide 23 BUN 7 Creatinine 0.61 Estimated GFR > 60 BUN/Creatinine Ratio 11.5 Glucose 85 Calcium 7.5 L Total Bilirubin 0.1 L AST 16 ALT 13 Alkaline Phosphatase 76 Total Protein 4.8 L Albumin 2.4 L Globulin 2.4 Albumin/Globulin Ratio 1.0 Blood Type Antibody Screen Crossmatch [facility] Medical History Cervical dysplasia Migraine with aura Meningitis spinal Surgical History History of gynecological procedure (~2010) History of oral surgery Family History Mother Substance abuse COPD (chronic obstructive pulmonary disease) Collapsed lung Broken heart syndrome Father Family estrangement Brother Rheumatoid arthritis Grandfather Skin cancer Grandmother Stroke Heart attack Sister Cervical cancer Asthma Social History marital status: unmarried,living together number of children: 1 household members: significant other and children lives independently: Yes caregiver/support person: Yes housing: house pets and animals: Yes (2 cats, 2 dogs) education level: high school occupational status: employed current occupational exposures/hazards: No special daniel needs: No travel history: over 6 months ago seatbelt use: always water heater temp set < 120 deg: Yes working smoke detector in home: Yes fire extinguisher in home: Yes carbon monox detector in home: Yes firearms in home: No do you feel safe at home: Yes Smoking Status: Current every day smoker Tobacco: How many years used: 21 second hand exposure: Yes (s/o smokes outdoors) alcohol intake: former substance use type: does not use during the past year weight has: increased > 10 lbs well-balanced diet: rarely or never daily servings fruits/ve-1 caffeine: Yes (aware of limits; has mostly been drinking decaf since ) Type(s) of exercise: none additional social history: Patient is still legally , although and actively seeking divorce, has a restraining order in place against her soon-to-be ex- Scooter. 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 Assessment & Plan Assessment & Plan narrative: Pt is a 39yo PPD # 14 complicated by retained placenta requiring D&C for removal, and significant hemorrhage s/p 2 units PRBCs here with ongoing heavy bleeding, lightheadedness, and documented Tmax 101.7F at home. Now POD #2 s/p repeat D&C with hemorrhage for retained products of conception, with resultant hemorrhagic shock. 1) Hemorrhagic shock: Pt with additional 2500cc blood loss with D&C. On Phenylephrine after procedure, able to wean yesterday. BP naturally runs in the 90s-low 100s/60s. Received another unit PRBCs last night now for a total of 6 units PRBCs, 2 FFP, 1 Cryo this hospitalization. Overall stable. - Keep MAP > 60 2) Endometritis: Pt with fever, mild uterine tenderness, tachycardia at presentation. No evidence of sepsis. Afebrile for > 24hrs, WBC count now normalized. - F/U blood cultures, currently no growth - Stop Clindamycin and Gentamicin, monitor for return of fever - Tylenol/Ibuprofen PRN for pain/fever, pt declines need for additional agents for pain control - Probiotic due to Clindamycin 3) Acute blood loss anemia due to hemorrhage at D&C: As above s/p multiple infusions. Pt with minimal lochia. Did have drop in H/H overnight - question cause: equilibrating further from initial blood loss, dilutional from IVF, unknown source of bleeding. Pt without any evidence of bleeding into her abdomen as nontender, and u/s used at the time of D&C without any perforation seen. Vaginal bleeding has been appropriate thus far after procedure. - Continue iron supplement - Continue to trend H/H - Hold Methergine - Pads to be weighed for QBL 3) state: - Continue vitamin FEN: General diet DVT ppx: SCDs due to ongoing bleeding Code: Full Dispo: Anticipate d/c tomorrow morning. Want to ensure remains afebrile off abx, H/H remains stable. Time-Based Coding :: 30 spent with patient and on the chart (including review of chart, obtaining history, exam, reviewing outside data, placing orders, documenting exam and treatment plan, and counseling patient) on 10/03/23. Quality VTE Deep Vein Thrombosis/Pulmonary Embolism Present on Admission: No IH PROFEE Senior Database Administrator Document charge(s): Yes Charge Codes Subsequent inpatient/observation care: [id number]
--- NOTE | 2024-10-03 11:44 | CM.DPNOTE ---
DCP Cont Reviewed chart. Patient discussed in multidisciplinary rounds. Hospitalist consulting. Patient is improving. ASTRID over the next 24-48 hrs. Discussed patient with Dr Real; offered INTELLECTUAL PROPERTY COUNSEL support. Provider feels although patient has a lot going on, patient is navigating well, denies need for SW visit at this time. Plan remains discharge home w/family w/close outpatient follow up. CM team following clinical course closely in case any discharge needs or concerns arise. JW
--- NOTE | 2024-10-03 15:26 | PM.CALLCOV.1 ---
Call Coverage Note Note Narrative of Care Provided: Discussed with Dr. Real this morning, no further assistance from the hospitalist service is requested. Hospitalist team will sign off. Please do not hesitate to reach out with additional questions or if her status changes moving forward.
[2024-10-03] MEDS: ACETAMINOPHEN 325 MG TABLET 650 MG PO (21:59)
[2024-10-04 05:14] VITALS: BP 101/53; PULSE 78; RESP 15; TEMP 36.1; O2SAT 98
[2024-10-04 05:38] LABS: Add Manual Diff / Slide Review NO; Basophils Absolute Auto 100 /uL (0-100); Basophils Percent Auto 0.5 % (0-2); Eosinophils Absolute Auto 100 /uL (0-450); Eosinophils Percent Auto 1.1 % (2-4); Hematocrit 26.5 % (36-46); Hemoglobin 8.9 g/dL (12.0-16.0); Lymphocytes Absolute Auto 1600 /uL (1100-4500); Lymphocytes Percent Auto 13.8 % (25-40); Mean Corpuscular HGB Conc 33.6 % (30-36); Mean Corpuscular Hemoglobin 27.5 PG (26-34); Mean Corpuscular Volume 81.8 fL (80-100); Monocytes Absolute Auto 700 /uL (0-900); Monocytes Percent Auto 6.1 % (3-14); Neutrophils Absolute Auto 8800 /uL (1500-7000); Neutrophils Percent Auto 78.5 % (50-75); Platelet Count 304 X10^3/uL (150-400); Red Blood Cell Count 3.25 X10^6/uL (4.0-5.2); White Blood Cell Count 11.2 X10^3/uL (4.5-11.0)
[2024-10-04 05:59] LABS: BUN Creatinine Ratio 14.3 (6-22); Blood Urea Nitrogen 9 mg/dL (7-17); Calcium 8.4 mg/dL (8.4-10.2); Carbon Dioxide 23 mmol/L (22-32); Chloride 105 mmol/L (98-107); Estimated Glomerular Filt Rate > 60 mL/min (>60); Glucose 92 mg/dL (70-100); HEMOLYSIS < 15 (0-50); Potassium 3.7 mmol/L (3.4-5.1); Sodium 136 mmol/L (137-145)
--- NOTE | 2024-10-04 07:38 | P.DS_ITS ---
History of Present Illness History of Present Illness Date Patient Seen: 10/04/24 Time Patient Seen: 07:38 Chief complaint: POST- BLEEDING Narrative: Pt is a 39yo PPD # 11 39yo s/p complicated by retained placenta requiring D&C for removal, and significant hemorrhage s/p 2 units PRBCs here with ongoing heavy bleeding, lightheadedness, and fever at home. Her bleeding had initially slowed after discharge, but then she had a large bleed on 09/26. She was evaluated in the [facility] ED in [place]. Pelvic exam showed scant blood and her H/H was stable at 9.8/29.2. She was ultimately discharged home. The pt was then evaluated in clinic on 09/27. At that point she was still bleeding relatively heavily, soaking a medium sized pad every 2- 3hrs but without any significant blood clots. She was not having any pelvic pain, and had a temperature to 99.9F the evening of 09/26 and was feeling clammy. Ultrasound was completed that showed a large amount of blood products vs retained products of conception. PULP SCREEN OPERATOR was consulted, Dr Klein, and after discussion with Dr Klein who did the initial D&C, and the patient, the decision was made to manage conservatively with PO Methergine. The pt was also started on PO Clindamycin due to concerns for infection. The pt was unfortunately unable to obtain any PO Methergine from local pharmacies. She has been taking the PO Clindamycin. She states that she had started to feel better on 09/28, however yesterday spiked a fever to 101.7F. Since then, she has been taking Tylenol regularly, and still feeling feverish before dosing. She continues to have heavy bleeding. She is changing her pad every 2 hrs. She will then have large gushes of blood that soak through her pad and pants around 2-3 times/day. She has passed clots that are approximately baseball size 3 times as well, and more frequently golf ball size and larger. She has been feeling lightheaded with intermittent palpitations. She denies any chest pain or SOB. She reports mild suprapubic tenderness, but denies any abnormal vaginal discharge beyond the bleeding. Discharge Providers Provider Date of admission: 09/30/24 17:40 Discharge Date: 10/04/24 Primary care physician: Keisha Denton PA-C Consults: 10/01/24 17:46 Consult to Mathematical Technician Routine Comment: Discharge provider: Beatriz Real MD Summary Hospital Course Discharge Diagnosis: Retained products of conception Endometritis s/p D&C hemorrhage Hemorrhagic shock Acute blood loss anemia Hospital Course: The pt presented with endometritis and ongoing heavy vaginal bleeding. She was initiate on IV Clindamycin and Gentamicin. Ultrasound showed retained products of conception. She underwent ultrasound-guided D&C, that was complicated by difficulty removing the retained products. Ultimately manual extraction in addition to curettage was utilized. The pt had significant blood loss during the procedure, and required transfusion of blood products. She was also initiated on a phenylephrine drip due to hypotension. This was weaned by the next afternoon. During her hospitalization the pt required a total of 6 units PRBCs, 2 units Cryo, and 1 unit FFP. The pt continued on IV antibiotics after the procedure for 2 additional days. They were then discontinued after the pt had been afebrile for > 24hrs, an had no further uterine tenderness. The pt then remained in the hospital for an additional 24hrs. During that time the pts H/H remained stable, and she continued to be afebrile. At the time of discharge, the pt was feeling quite well and ready to return home. She denied any further lightheadedness. Strict return precautions were discussed, and she was instructed to continue her iron supplement. Status at Discharge Cognitive/behavioral status at discharge: oriented Functional status at discharge: independent ambulation Overall status at discharge: patient is back to baseline Exam Vital Signs (past 8 hours): - 10/04/24 05:14 Temperature 97 F L Pulse Rate 78 Respiratory Rate 15 Blood Pressure 101/53 L Pulse Oximetry 98 Oxygen Delivery Method Room Air Oxygen Flow Rate 0 Narrative Exam Narrative: Gen: NAD, sitting comfortably in bed, appears well, color back in cheeks CV: RRR, no murmurs Resp: clear to auscultation bilaterally Abd: soft, nontender, nondistended, no rebound/guarding/rigidity Ext: no edema Objective Labs 10/04/24 05:15 10/04/24 05:15 Labs: Laboratory Results - last 24 hr 10/04/24 05:15 WBC 11.2 H RBC 3.25 L Hgb 8.9 L Hct 26.5 L MCV 81.8 MCH 27.5 MCHC 33.6 RDW 18.0 H Plt Count 304 Neut % (Auto) 78.5 H Lymph % (Auto) 13.8 L [place] % (Auto) 6.1 Eos % (Auto) 1.1 L Baso % (Auto) 0.5 Neut # (Auto) 8800 H Lymph # (Auto) 1600 [place] # (Auto) 700 Eos # (Auto) 100 Baso # (Auto) 100 Sodium 136 L Potassium 3.7 Chloride 105 Carbon Dioxide 23 BUN 9 Creatinine 0.63 Estimated GFR > 60 BUN/Creatinine Ratio 14.3 Glucose 92 Calcium 8.4 PFSH Medical History Cervical dysplasia Migraine with aura Meningitis spinal Surgical History History of gynecological procedure (~2010) History of oral surgery Family History Mother Substance abuse COPD (chronic obstructive pulmonary disease) Collapsed lung Broken heart syndrome Father Family estrangement Brother Rheumatoid arthritis Grandfather Skin cancer Grandmother Stroke Heart attack Sister Cervical cancer Asthma Social History marital status: unmarried,living together number of children: 1 household members: significant other and children lives independently: Yes caregiver/support person: Yes housing: house pets and animals: Yes (2 cats, 2 dogs) education level: high school occupational status: employed current occupational exposures/hazards: No special daniel needs: No travel history: over 6 months ago seatbelt use: always water heater temp set < 120 deg: Yes working smoke detector in home: Yes fire extinguisher in home: Yes carbon monox detector in home: Yes firearms in home: No do you feel safe at home: Yes Smoking Status: Current every day smoker Tobacco: How many years used: 21 second hand exposure: Yes (s/o smokes outdoors) alcohol intake: former substance use type: does not use during the past year weight has: increased > 10 lbs well-balanced diet: rarely or never daily servings fruits/ve-1 caffeine: Yes (aware of limits; has mostly been drinking decaf since ) Type(s) of exercise: none additional social history: Patient is still legally , although and actively seeking divorce, has a restraining order in place against her soon-to-be ex- Nathan. 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 Discharge Plan Discharge Plan Patient Disposition: Home Discharge orders & Medications Prescriptions: Continued vit-ferrous sulfat-FA 27 mg iron- 0.8 mg tablet 1 tab PO DAILY acetaminophen 325 mg Tablet 650 mg PO Q6HR PRN (Reason: Pain, Mild (1-3)) Qty: 30 0RF docusate sodium 100 mg Capsule 100 mg PO DAILY Qty: 30 0RF ibuprofen 600 mg Tablet 600 mg PO Q6HR PRN (Reason: Pain, Mild (1-3)) Qty: 30 0RF Changed ferrous sulfate 325 mg (65 mg iron) Tablet 325 mg PO BID Qty: 60 0RF Discontinued clindamycin HCl 300 mg capsule 600 mg PO Q6H 7 Days Qty: 56 0RF Follow up/Referrals: Keisha Denton PA-C [Primary Care Provider] - Diet/Activity/Treatments Diet: Diet as Tolerated and Regular Skin/Wound/Dressing Care Report to your healthcare provider any signs of infection, such as:: chills, fever, increased pain and unusual drainage Visit Report/Discharge Packet Stand Alone Forms: Patient Portal/API, Stroke Signs & Symptoms Discharge Data Primary Care Provider: Keisha Denton Discharges patient from system. Discharge Date/Time: 10/04/24 12:22 Quality VTE Deep Vein Thrombosis/Pulmonary Embolism Present on Admission: No IH PROFEE Charge Codes Discharge inpatient/observation: [id number]
[2024-10-04] MEDS: PRENATAL VIT,CALC/IRON/FOLIC 1 TABLET 1 TAB PO (08:40)
[2024-10-04] MEDS: FERROUS SULFATE 325 MG TABLET PO (08:40)
[2024-10-04] MEDS: DOCUSATE 100 MG CAPSULE PO (08:40)
--- NOTE | 2024-10-04 09:14 | CM.DPC ---
DCP Continued: Reviewed EMR and team rounds for pt?s medical status. Per Provider order, Pt medically cleared to discharge. Per SURVEILLANCE OBSERVER, pt requesting assistance with [place] Priority Boarding pass [place] back to Monday. DCP entered room, introduced self and role. Pt states they have been attempting to get ferry reservation but could not confirm one in time. DCP completed webform for Medical Priority boarding for patient, provided printed copy for patient and sent to pt email. No other discharge plans identified at this time. Plan: Anticipating dc home when medically stable, spouse to transport. CM Team will continue to follow for coordination of discharge plans. SHAMIR Garces
[2024-10-04] MEDS: ACETAMINOPHEN 325 MG TABLET 650 MG PO (11:12)
[2024-10-04] MEDS: hydrOXYzine HCL 25 MG TABLET PO (11:46)
== END 2024-10-04 12:22 | disposition home or self-care (01) | DRG 769 ==
LOC: LABOR 10-01 15:40 → ICU 10-01 16:52
PROVIDERS: Hospitalist; Nurse Anesthetist, Certified Registered; Obstetrics & Gynecology; Student in an Organized Health Care Education/Training Program; Admitting Provider Family Medicine; PCP Physician Assistant; Referring Provider Family Medicine; Visit Provider Family Medicine
PROC: 0W3R7ZZ Control Bleeding in Genitourinary Tract, Via Natural or Artificial Opening (ICD-10-PCS; CPT 58120; principal; 2024-10-01 15:15)
DX: O72.2 Delayed and secondary postpartum hemorrhage (principal); R57.8 Other shock; D62 Acute posthemorrhagic anemia; N71.9 Inflammatory disease of uterus, unspecified; R00.0 Tachycardia, unspecified; F17.210 Nicotine dependence, cigarettes, uncomplicated
CPT/HCPCS: 36415; 36430; 59160; 71045; 76856; 80048; 80053; 80170; 83605; 84146; 84443; 85014; 85018; 85025; 85027; 85379; 85384; 85610; 85730; 86850; 86900; 86901; 86927; 87040; 99223; 99232; 99233; 99238; 99406; P9016; A9270; G0379; J1642; J2175; J2210; J2250; J2405; J2704; J3010

== ENCOUNTER 2024-10-05 03:42 | Emergency (ER) | payer OTHER, SELFPAY ==
[2024-10-05] VITALS (61 sets, daily range): BP systolic 82–122; BP diastolic 50–67; PULSE 60–114; RESP 22; TEMP 36.9; O2SAT 94–98; BMI 30.4
--- NOTE | 2024-10-05 03:44 | DI.CT.S_ITS ---
PROCEDURE: CT ABDOMEN PELVIS W CON INDICATIONS: retained product of conception TECHNIQUE: After the administration of intravenous contrast, axial sections acquired from the lung bases to the pubic symphysis. Coronal and sagittal reformats were performed. For radiation dose reduction, the following was used: automated exposure control, adjustment of mA and/or kV according to patient size. COMPARISON: None. FINDINGS: Lower Chest: Mild bibasilar atelectasis ABDOMEN: Liver: No solid mass. Gallbladder: No radiopaque gallstones or wall thickening. Biliary ducts: No biliary dilation. Pancreas: No ductal dilation. Spleen: Size is within normal limits. Adrenal Glands: No adrenal nodules. Kidneys and Ureters: Left renal simple cyst. Mild bilateral hydronephrosis. Stomach and Bowel: Normal colonic caliber, without significant wall thickening. Peritoneum: No abnormal intraperitoneal fluid. No free air. Ventral Wall: No significant ventral hernia. Abdominal Nodes: No retroperitoneal or mesenteric adenopathy by size criteria. Vessels: Aorta and inferior vena cava are normal in size. PELVIS: Pelvic Organs: uterus with air in the endometrial cavity. Myometrial fibroid or contraction in the posterior wall measures up to 5.4 cm. Associated myometrial hyperemia. Urinary bladder distension. Bladder: No bladder wall thickening, accounting for underdistention. Pelvic Nodes: No enlarged lymph nodes. Miscellaneous: No inguinal hernias are seen. Bones: No aggressive osseous abnormality. IMPRESSION: Fluid in air noted in the uterine endometrial canal. Consider follow-up ultrasound to evaluate for retained products of conception. Likely uterine fibroid or myometrial contraction Mild bilateral hydronephrosis Note: This final report is concordant with the preliminary after-hours interpretation provided by [employer] Approved by: Isidoro Farias M.D. on 10/05/2024 at 8:34
--- NOTE | 2024-10-05 04:08 | ED.ABDPAIN ---
HPI - Abdominal Pain <Jhonny Malagon MD - Last Filed: 10/30/24 02:47> General Chief Complaint: Fever Stated Complaint: sepsis Time Seen by Provider: 10/05/24 03:43 Source: patient and EMS Mode of arrival: EMS History of Present Illness HPI narrative: Patient is a 39-year-old female two weeks whose post-delivery course has been complicated by retained placenta requiring two D&Cs with significant hemorrhage necessitating transfusion, as well as fevers and concern for endometritis, for which she received 7 days of Clindamycin. She was recently discharged from [facility] but returned to an outside emergency department within the last 48 hours with symptoms of fever, chills, shaking, emesis, abdominal pain, and was found to be tachycardic with an elevated lactic acid level. She denies any dysuria, vaginal discharge, or bleeding. The patient received empiric antibiotics and 3 liters of IV fluids at the outside facility. Medications: Clindamycin (completed 7-day course). Related Data Home Medications Medication Instructions Recorded Confirmed vitamin-ferrous sulfate 1 tab PO DAILY 02/22/24 09/30/24 27 mg iron-folic acid 0.8 mg tablet Previous Rx's Medication Instructions Recorded acetaminophen 325 mg tablet 650 mg (2 x 325 mg) PO Q6HR PRN 09/20/24 Pain, Mild (1-3) #30 tabs docusate sodium 100 mg capsule 100 mg PO DAILY #30 caps 09/20/24 ibuprofen 600 mg tablet 600 mg PO Q6HR PRN Pain, Mild 09/20/24 (1-3) #30 tabs ferrous sulfate 325 mg (65 mg 325 mg PO BID #60 tabs 10/04/24 iron) tablet Allergies Allergy/AdvReac Type Severity Reaction Status Date / Time amoxicillin Allergy Mild Rash Verified 09/27/24 12:02 suture Allergy Intermediate Uncoded 09/27/24 12:02 Review of Systems <Jhonny Malagon MD - Last Filed: 10/30/24 02:47> Review of Systems Narrative: Constitutional: Reports fever, chills, shaking. Gastrointestinal: Reports emesis, abdominal pain. Genitourinary: Denies dysuria, vaginal discharge, or bleeding. Skin: No rash or unusual bruising. Neurologic: No focal neurological deficits. Patient History <Jhonny Malagon MD - Last Filed: 10/30/24 02:47> Medical History Cervical dysplasia Migraine with aura Meningitis spinal Surgical History History of gynecological procedure (~2010) History of oral surgery Family History Mother Substance abuse COPD (chronic obstructive pulmonary disease) Collapsed lung Broken heart syndrome Father Family estrangement Brother Rheumatoid arthritis Grandfather Skin cancer Grandmother Stroke Heart attack Sister Cervical cancer Asthma Social History marital status: unmarried,living together number of children: 1 household members: significant other and children lives independently: Yes caregiver/support person: Yes housing: house pets and animals: Yes (2 cats, 2 dogs) education level: high school occupational status: employed current occupational exposures/hazards: No special daniel needs: No travel history: over 6 months ago seatbelt use: always water heater temp set < 120 deg: Yes working smoke detector in home: Yes fire extinguisher in home: Yes carbon monox detector in home: Yes firearms in home: No do you feel safe at home: Yes Smoking Status: Current every day smoker Tobacco: How many years used: 21 second hand exposure: Yes (s/o smokes outdoors) alcohol intake: former substance use type: does not use during the past year weight has: increased > 10 lbs well-balanced diet: rarely or never daily servings fruits/ve-1 caffeine: Yes (aware of limits; has mostly been drinking decaf since ) Type(s) of exercise: none additional social history: Patient is still legally , although and actively seeking divorce, has a restraining order in place against her soon-to-be ex- Nathan. 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 Smoking Status: Current every day smoker Exam <Jhonny Malagon MD - Last Filed: 10/30/24 02:47> Narrative Exam Narrative: General: Well appearing, well nourished, in no distress. Skin: Good turgor, no rash, unusual bruising or prominent lesions. Head: Normocephalic, atraumatic. HEENT: Conjunctiva clear, EOM intact, PERRL, Mucous membranes moist. Neck: Supple, normal ROM. Heart: Regular rate and rhythm, no murmur or gallop or rubs. Lungs: Clear to auscultation. No rales, rhonchi, or wheezes. Abdomen: Soft and non-tender. Bowel sounds normal. No mass or hernia. Back: Spine normal without deformity or tenderness, no CVA tenderness. Extremities: No deformities, edema. Peripheral pulses intact. Neurologic: CN 2-12 normal. Normal sensation and motor exam. Psychiatric: Oriented X3. Normal mood and affect. Initial Vital Signs Initial Vital Signs: Vital Signs Temperature 98.4 F 10/05/24 03:45 Pulse Rate 114 H 10/05/24 03:45 Respiratory Rate 22 10/05/24 03:45 Blood Pressure 96/54 L 10/05/24 03:45 Pulse Oximetry 98 10/05/24 03:45 Oxygen Delivery Method Room Air 10/05/24 03:45 <Abimael Shepherd MD - Last Filed: 10/05/24 19:10> Initial Vital Signs Initial Vital Signs: Vital Signs Temperature 98.4 F 10/05/24 03:45 Pulse Rate 114 H 10/05/24 03:45 Respiratory Rate 22 10/05/24 03:45 Blood Pressure 96/54 L 10/05/24 03:45 Pulse Oximetry 98 10/05/24 03:45 Oxygen Delivery Method Room Air 10/05/24 03:45 Course <Jhonny Malagon MD - Last Filed: 10/30/24 02:47> Orders Ordered: Discontinued Medications Sterile Water 20 ml/ (Doxycycline Hyclate 100 mg) 0 ml INJ INTRA-OP ONE Stop: 10/05/24 04:43 Last Admin: 10/05/24 04:59 Dose: Not Given Documented By: RONALDO Lactated Ringer's (Lactated Ringers) 1,000 mls @ 1,000 mls/hr IV BOLUS ONE Stop: 10/05/24 05:43 Last Infusion: 10/05/24 06:06 Dose: Infused Documented By: Admin: 10/05/24 04:45 Dose: 1,000 mls/hr Documented By: RONALDO Doxycycline Hyclate 100 mg/ (Sodium Chloride) 100 mls @ 100 mls/hr IV NOW ONE Stop: 10/05/24 04:52 Last Infusion: 10/05/24 06:07 Dose: Infused Documented By: Admin: 10/05/24 04:59 Dose: 100 mls/hr Documented By: RONALDO NOREPINEPHRINE BITARTRATE/D5W (Levophed) 4 mg in 250 mls @ 34.019 mls/hr IV TITRATE FAUSTINO; Protocol Last Titration: 10/05/24 10:51 Dose: Infused Documented By: Titration: 10/05/24 10:46 Dose: 0.1 mcg/kg/min, 34.019 mls/hr Documented By: Titration: 10/05/24 08:40 Dose: 0 mcg/kg/min, 0 mls/hr Documented By: Admin: 10/05/24 06:18 Dose: 0.1 mcg/kg/min, 34.019 mls/hr Documented By: RONALDO POTASSIUM CHLORIDE IN WATER (Potassium Cl 10 Meq/100 Ml Cailin) 10 meq in 100 mls @ 100 mls/hr IV Q1H FAUSTINO Stop: 10/05/24 11:29 Last Admin: 10/05/24 10:57 Dose: Not Given Documented By: Infusion: 10/05/24 10:51 Dose: Infused Documented By: Admin: 10/05/24 09:32 Dose: 100 mls/hr Documented By: TYRON Azithromycin 500 mg/ Dextrose 250 mls @ 250 mls/hr IV NOW ONE Stop: 10/05/24 09:59 Last Infusion: 10/05/24 11:03 Dose: Infused Documented By: Admin: 10/05/24 10:12 Dose: 250 mls/hr Documented By: TYRON Vital Signs Vital signs: Vital Signs - 8 hr 10/05/24 03:45 10/05/24 04:23 10/05/24 04:23 Temperature 98.4 F Pulse Rate 114 H 100 H Respiratory Rate 22 Blood Pressure 96/54 L 85/54 L Pulse Oximetry 98 95 Oxygen Delivery Method Room Air 10/05/24 04:30 10/05/24 04:30 10/05/24 05:00 Temperature Pulse Rate 99 H 92 H Respiratory Rate Blood Pressure 84/51 L Pulse Oximetry 94 94 Oxygen Delivery Method 10/05/24 05:00 10/05/24 05:30 10/05/24 05:30 Temperature Pulse Rate 88 Respiratory Rate Blood Pressure 86/54 L 86/53 L Pulse Oximetry 94 Oxygen Delivery Method 10/05/24 06:00 10/05/24 06:00 10/05/24 06:07 Temperature Pulse Rate 85 90 Respiratory Rate Blood Pressure 82/52 L Pulse Oximetry 95 96 Oxygen Delivery Method 10/05/24 06:07 10/05/24 06:08 10/05/24 06:08 Temperature Pulse Rate 87 Respiratory Rate Blood Pressure 82/53 L 86/54 L Pulse Oximetry 96 Oxygen Delivery Method 10/05/24 06:25 10/05/24 06:25 10/05/24 06:30 Temperature Pulse Rate 72 63 Respiratory Rate Blood Pressure 108/64 Pulse Oximetry 98 96 Oxygen Delivery Method 10/05/24 06:30 10/05/24 06:35 10/05/24 06:35 Temperature Pulse Rate 72 Respiratory Rate Blood Pressure 104/61 110/63 Pulse Oximetry 94 Oxygen Delivery Method 10/05/24 06:40 10/05/24 06:40 10/05/24 06:45 Temperature Pulse Rate 60 Respiratory Rate Blood Pressure 102/60 97/59 L Pulse Oximetry 96 Oxygen Delivery Method 10/05/24 06:45 10/05/24 06:50 10/05/24 06:50 Temperature Pulse Rate 64 66 Respiratory Rate Blood Pressure 104/61 Pulse Oximetry 95 94 Oxygen Delivery Method 10/05/24 06:55 10/05/24 06:55 10/05/24 07:00 Temperature Pulse Rate 63 Respiratory Rate Blood Pressure 110/62 106/60 Pulse Oximetry 95 Oxygen Delivery Method 10/05/24 07:00 10/05/24 07:05 10/05/24 07:05 Temperature Pulse Rate 62 60 Respiratory Rate Blood Pressure 106/59 L Pulse Oximetry 95 95 Oxygen Delivery Method 10/05/24 07:10 10/05/24 07:10 10/05/24 07:15 Temperature Pulse Rate 67 Respiratory Rate Blood Pressure 103/62 105/64 Pulse Oximetry 95 Oxygen Delivery Method 10/05/24 07:15 10/05/24 07:20 10/05/24 07:20 Temperature Pulse Rate 63 66 Respiratory Rate Blood Pressure 106/62 Pulse Oximetry 95 95 Oxygen Delivery Method 10/05/24 07:25 10/05/24 07:25 10/05/24 07:30 Temperature Pulse Rate 68 81 Respiratory Rate Blood Pressure 114/60 Pulse Oximetry 95 96 Oxygen Delivery Method 10/05/24 07:30 10/05/24 07:35 10/05/24 07:35 Temperature Pulse Rate 75 Respiratory Rate Blood Pressure 113/59 L 114/67 Pulse Oximetry 96 Oxygen Delivery Method 10/05/24 07:40 10/05/24 07:40 10/05/24 07:45 Temperature Pulse Rate 70 Respiratory Rate Blood Pressure 105/62 106/61 Pulse Oximetry 95 Oxygen Delivery Method 10/05/24 07:45 10/05/24 07:50 10/05/24 07:50 Temperature Pulse Rate 76 82 Respiratory Rate Blood Pressure 107/59 L Pulse Oximetry 96 95 Oxygen Delivery Method 10/05/24 07:55 10/05/24 07:55 10/05/24 08:00 Temperature Pulse Rate 70 Respiratory Rate Blood Pressure 109/61 111/63 Pulse Oximetry 96 Oxygen Delivery Method 10/05/24 08:00 10/05/24 08:05 10/05/24 08:05 Temperature Pulse Rate 70 76 Respiratory Rate Blood Pressure 110/62 Pulse Oximetry 96 95 Oxygen Delivery Method 10/05/24 08:10 10/05/24 08:10 10/05/24 08:15 Temperature Pulse Rate 76 Respiratory Rate Blood Pressure 110/58 L 122/63 Pulse Oximetry 95 Oxygen Delivery Method 10/05/24 08:15 10/05/24 08:20 10/05/24 08:20 Temperature Pulse Rate 84 83 Respiratory Rate Blood Pressure 117/63 Pulse Oximetry 95 97 Oxygen Delivery Method 10/05/24 08:25 10/05/24 08:25 10/05/24 08:30 Temperature Pulse Rate 85 Respiratory Rate Blood Pressure 113/65 113/61 Pulse Oximetry 96 Oxygen Delivery Method 10/05/24 08:30 10/05/24 08:35 10/05/24 08:35 Temperature Pulse Rate 75 85 Respiratory Rate Blood Pressure 115/60 Pulse Oximetry 96 97 Oxygen Delivery Method 10/05/24 08:40 10/05/24 08:40 10/05/24 08:45 Temperature Pulse Rate 77 Respiratory Rate Blood Pressure 114/62 96/53 L Pulse Oximetry 96 Oxygen Delivery Method 10/05/24 08:45 10/05/24 08:50 10/05/24 08:50 Temperature Pulse Rate 96 H 97 H Respiratory Rate Blood Pressure 92/54 L Pulse Oximetry 95 94 Oxygen Delivery Method 10/05/24 08:55 10/05/24 08:55 10/05/24 09:00 Temperature Pulse Rate 101 H 101 H Respiratory Rate Blood Pressure 93/55 L Pulse Oximetry 95 95 Oxygen Delivery Method 10/05/24 09:00 10/05/24 09:05 10/05/24 09:05 Temperature Pulse Rate 99 H Respiratory Rate Blood Pressure 96/51 L 94/55 L Pulse Oximetry 96 Oxygen Delivery Method 10/05/24 09:10 10/05/24 09:10 10/05/24 09:15 Temperature Pulse Rate 100 H 98 H Respiratory Rate Blood Pressure 93/55 L Pulse Oximetry 95 95 Oxygen Delivery Method 10/05/24 09:15 10/05/24 09:20 10/05/24 09:20 Temperature Pulse Rate 95 H Respiratory Rate Blood Pressure 95/51 L 95/54 L Pulse Oximetry 96 Oxygen Delivery Method 10/05/24 09:25 10/05/24 09:25 10/05/24 09:30 Temperature Pulse Rate 94 H Respiratory Rate Blood Pressure 96/51 L 95/51 L Pulse Oximetry 94 Oxygen Delivery Method 10/05/24 09:30 10/05/24 09:35 10/05/24 09:35 Temperature Pulse Rate 94 H 69 Respiratory Rate Blood Pressure 103/55 L Pulse Oximetry 96 97 Oxygen Delivery Method <Abimael Shepherd MD - Last Filed: 10/05/24 19:10> Orders Ordered: Discontinued Medications Sterile Water 20 ml/ (Doxycycline Hyclate 100 mg) 0 ml INJ INTRA-OP ONE Stop: 10/05/24 04:43 Last Admin: 10/05/24 04:59 Dose: Not Given Documented By: RONALDO Lactated Ringer's (Lactated Ringers) 1,000 mls @ 1,000 mls/hr IV BOLUS ONE Stop: 10/05/24 05:43 Last Infusion: 10/05/24 06:06 Dose: Infused Documented By: Admin: 10/05/24 04:45 Dose: 1,000 mls/hr Documented By: RONALDO Doxycycline Hyclate 100 mg/ (Sodium Chloride) 100 mls @ 100 mls/hr IV NOW ONE Stop: 10/05/24 04:52 Last Infusion: 10/05/24 06:07 Dose: Infused Documented By: Admin: 10/05/24 04:59 Dose: 100 mls/hr Documented By: RONALDO NOREPINEPHRINE BITARTRATE/D5W (Levophed) 4 mg in 250 mls @ 34.019 mls/hr IV TITRATE FAUSTINO; Protocol Last Titration: 10/05/24 10:51 Dose: Infused Documented By: Titration: 10/05/24 10:46 Dose: 0.1 mcg/kg/min, 34.019 mls/hr Documented By: Titration: 10/05/24 08:40 Dose: 0 mcg/kg/min, 0 mls/hr Documented By: Admin: 10/05/24 06:18 Dose: 0.1 mcg/kg/min, 34.019 mls/hr Documented By: RONALDO POTASSIUM CHLORIDE IN WATER (Potassium Cl 10 Meq/100 Ml Cailin) 10 meq in 100 mls @ 100 mls/hr IV Q1H FAUSTINO Stop: 10/05/24 11:29 Last Admin: 10/05/24 10:57 Dose: Not Given Documented By: Infusion: 10/05/24 10:51 Dose: Infused Documented By: Admin: 10/05/24 09:32 Dose: 100 mls/hr Documented By: TYRON Azithromycin 500 mg/ Dextrose 250 mls @ 250 mls/hr IV NOW ONE Stop: 10/05/24 09:59 Last Infusion: 10/05/24 11:03 Dose: Infused Documented By: Admin: 10/05/24 10:12 Dose: 250 mls/hr Documented By: TYRON Vital Signs Vital signs: Vital Signs - 8 hr 10/05/24 03:45 10/05/24 04:23 10/05/24 04:23 Temperature 98.4 F Pulse Rate 114 H 100 H Respiratory Rate 22 Blood Pressure 96/54 L 85/54 L Pulse Oximetry 98 95 Oxygen Delivery Method Room Air 10/05/24 04:30 10/05/24 04:30 10/05/24 05:00 Temperature Pulse Rate 99 H 92 H Respiratory Rate Blood Pressure 84/51 L Pulse Oximetry 94 94 Oxygen Delivery Method 10/05/24 05:00 10/05/24 05:30 10/05/24 05:30 Temperature Pulse Rate 88 Respiratory Rate Blood Pressure 86/54 L 86/53 L Pulse Oximetry 94 Oxygen Delivery Method 10/05/24 06:00 10/05/24 06:00 10/05/24 06:07 Temperature Pulse Rate 85 90 Respiratory Rate Blood Pressure 82/52 L Pulse Oximetry 95 96 Oxygen Delivery Method 10/05/24 06:07 10/05/24 06:08 10/05/24 06:08 Temperature Pulse Rate 87 Respiratory Rate Blood Pressure 82/53 L 86/54 L Pulse Oximetry 96 Oxygen Delivery Method 10/05/24 06:25 10/05/24 06:25 10/05/24 06:30 Temperature Pulse Rate 72 63 Respiratory Rate Blood Pressure 108/64 Pulse Oximetry 98 96 Oxygen Delivery Method 10/05/24 06:30 10/05/24 06:35 10/05/24 06:35 Temperature Pulse Rate 72 Respiratory Rate Blood Pressure 104/61 110/63 Pulse Oximetry 94 Oxygen Delivery Method 10/05/24 06:40 10/05/24 06:40 10/05/24 06:45 Temperature Pulse Rate 60 Respiratory Rate Blood Pressure 102/60 97/59 L Pulse Oximetry 96 Oxygen Delivery Method 10/05/24 06:45 10/05/24 06:50 10/05/24 06:50 Temperature Pulse Rate 64 66 Respiratory Rate Blood Pressure 104/61 Pulse Oximetry 95 94 Oxygen Delivery Method 10/05/24 06:55 10/05/24 06:55 10/05/24 07:00 Temperature Pulse Rate 63 Respiratory Rate Blood Pressure 110/62 106/60 Pulse Oximetry 95 Oxygen Delivery Method 10/05/24 07:00 10/05/24 07:05 10/05/24 07:05 Temperature Pulse Rate 62 60 Respiratory Rate Blood Pressure 106/59 L Pulse Oximetry 95 95 Oxygen Delivery Method 10/05/24 07:10 10/05/24 07:10 10/05/24 07:15 Temperature Pulse Rate 67 Respiratory Rate Blood Pressure 103/62 105/64 Pulse Oximetry 95 Oxygen Delivery Method 10/05/24 07:15 10/05/24 07:20 10/05/24 07:20 Temperature Pulse Rate 63 66 Respiratory Rate Blood Pressure 106/62 Pulse Oximetry 95 95 Oxygen Delivery Method 10/05/24 07:25 10/05/24 07:25 10/05/24 07:30 Temperature Pulse Rate 68 81 Respiratory Rate Blood Pressure 114/60 Pulse Oximetry 95 96 Oxygen Delivery Method 10/05/24 07:30 10/05/24 07:35 10/05/24 07:35 Temperature Pulse Rate 75 Respiratory Rate Blood Pressure 113/59 L 114/67 Pulse Oximetry 96 Oxygen Delivery Method 10/05/24 07:40 10/05/24 07:40 10/05/24 07:45 Temperature Pulse Rate 70 Respiratory Rate Blood Pressure 105/62 106/61 Pulse Oximetry 95 Oxygen Delivery Method 10/05/24 07:45 10/05/24 07:50 10/05/24 07:50 Temperature Pulse Rate 76 82 Respiratory Rate Blood Pressure 107/59 L Pulse Oximetry 96 95 Oxygen Delivery Method 10/05/24 07:55 10/05/24 07:55 10/05/24 08:00 Temperature Pulse Rate 70 Respiratory Rate Blood Pressure 109/61 111/63 Pulse Oximetry 96 Oxygen Delivery Method 10/05/24 08:00 10/05/24 08:05 10/05/24 08:05 Temperature Pulse Rate 70 76 Respiratory Rate Blood Pressure 110/62 Pulse Oximetry 96 95 Oxygen Delivery Method 10/05/24 08:10 10/05/24 08:10 10/05/24 08:15 Temperature Pulse Rate 76 Respiratory Rate Blood Pressure 110/58 L 122/63 Pulse Oximetry 95 Oxygen Delivery Method 10/05/24 08:15 10/05/24 08:20 10/05/24 08:20 Temperature Pulse Rate 84 83 Respiratory Rate Blood Pressure 117/63 Pulse Oximetry 95 97 Oxygen Delivery Method 10/05/24 08:25 10/05/24 08:25 10/05/24 08:30 Temperature Pulse Rate 85 Respiratory Rate Blood Pressure 113/65 113/61 Pulse Oximetry 96 Oxygen Delivery Method 10/05/24 08:30 10/05/24 08:35 10/05/24 08:35 Temperature Pulse Rate 75 85 Respiratory Rate Blood Pressure 115/60 Pulse Oximetry 96 97 Oxygen Delivery Method 10/05/24 08:40 10/05/24 08:40 10/05/24 08:45 Temperature Pulse Rate 77 Respiratory Rate Blood Pressure 114/62 96/53 L Pulse Oximetry 96 Oxygen Delivery Method 10/05/24 08:45 10/05/24 08:50 10/05/24 08:50 Temperature Pulse Rate 96 H 97 H Respiratory Rate Blood Pressure 92/54 L Pulse Oximetry 95 94 Oxygen Delivery Method 10/05/24 08:55 10/05/24 08:55 10/05/24 09:00 Temperature Pulse Rate 101 H 101 H Respiratory Rate Blood Pressure 93/55 L Pulse Oximetry 95 95 Oxygen Delivery Method 10/05/24 09:00 10/05/24 09:05 10/05/24 09:05 Temperature Pulse Rate 99 H Respiratory Rate Blood Pressure 96/51 L 94/55 L Pulse Oximetry 96 Oxygen Delivery Method 10/05/24 09:10 10/05/24 09:10 10/05/24 09:15 Temperature Pulse Rate 100 H 98 H Respiratory Rate Blood Pressure 93/55 L Pulse Oximetry 95 95 Oxygen Delivery Method 10/05/24 09:15 10/05/24 09:20 10/05/24 09:20 Temperature Pulse Rate 95 H Respiratory Rate Blood Pressure 95/51 L 95/54 L Pulse Oximetry 96 Oxygen Delivery Method 10/05/24 09:25 10/05/24 09:25 10/05/24 09:30 Temperature Pulse Rate 94 H Respiratory Rate Blood Pressure 96/51 L 95/51 L Pulse Oximetry 94 Oxygen Delivery Method 10/05/24 09:30 10/05/24 09:35 10/05/24 09:35 Temperature Pulse Rate 94 H 69 Respiratory Rate Blood Pressure 103/55 L Pulse Oximetry 96 97 Oxygen Delivery Method MDM - Abdominal Pain <Jhonny Malagon MD - Last Filed: 10/30/24 02:47> Lab Data 10/05/24 04:30 10/05/24 04:30 Labs: Lab Results 10/05/24 10/05/24 Range/Units 04:30 04:40 WBC 15.2 H (4.5-11.0) X10^3/uL RBC 3.02 L (4.0-5.2) X10^6/uL Hgb 8.2 L (12.0-16.0) g/dL Hct 24.7 L (36-46) % MCV 81.7 (80-100) fL MCH 27.1 (26-34) PG MCHC 33.2 (30-36) % RDW 17.8 H (11.6-14.8) % Plt Count 290 (150-400) X10^3/uL Neut % (Auto) 90.6 H (50-75) % Lymph % (Auto) 4.3 L (25-40) % Ashley % (Auto) 4.4 (3-14) % Eos % (Auto) 0.1 L (2-4) % Baso % (Auto) 0.6 (0-2) % Neut # (Auto) 62387 H (9567-6918) /uL Lymph # (Auto) 700 L (6636-9477) /uL Ashley # (Auto) 700 (0-900) /uL Eos # (Auto) 0 (0-450) /uL Baso # (Auto) 100 (0-100) /uL Sodium 135 L (137-145) mmol/L Potassium 3.2 L (3.4-5.1) mmol/L Chloride 107 (98-107) mmol/L Carbon Dioxide 21 L (22-32) mmol/L BUN 8 (7-17) mg/dL Creatinine 0.68 (0.52-1.04) mg/dL Estimated GFR > 60 (>60) mL/min BUN/Creatinine Ratio 11.8 (6-22) Glucose 137 H (70-100) mg/dL Lactate 1.2 (0.7-2.1) mmol/L Calcium 7.8 L (8.4-10.2) mg/dL Total Bilirubin 0.2 (0.2-1.3) mg/dL AST 19 (14-36) IU/L ALT 18 (<35) IU/L Alkaline Phosphatase 86 (38-126) U/L Total Protein 5.0 L (6.3-8.2) g/dL Albumin 2.5 L (3.5-5.0) g/dL Globulin 2.5 (1.7-4.1) g/dL Albumin/Globulin Ratio 1.0 (1.0-2.8) Blood Type O Positive Antibody Screen Negative MDM Narrative Medical decision making narrative: INITIAL EVALUATION AND PLAN: - Send patient for CT scan to evaluate for retained placenta and any potential bleeding. - Continue antibiotics and IV fluids. - Consult with OBGYN team for further management, including potential ultrasound. - Admit for observation due to severity of previous illness. - Review and monitor lab results, including lactic acid levels. - Assess for any need for blood pressure support medications. - Monitor for any significant swelling in the legs. - Differential diagnosis includes but is not limited to: retained placenta, endometritis, sepsis, bacteremia, hemorrhage. Repeat labs drawn here in the emergency department patient is started on a L of fluid given continued soft blood pressures but no significant tachycardia. Bedside ultrasound performed that shows no free fluid in the abdomen but does show 30 shadowing within the uterus and concern for potential mass within the uterus question abscess versus primary uterine mass. CT scan of the abdomen and pelvis obtained which shows concern for retained products of conception, concern for myometrial lesion, patient has already received ceftriaxone, metronidazole at outside hospital, will receive doxycycline here after consultation with OBGYN. I reviewed patient's labs here and lactated appears to be significantly improved from prior it was 6 at outside hospital found to be 1.2 here, discussed the case with on-call OBGYN Dr. Myers she does not feel that patient should stay given multiple complicated procedures believes patient needs to be transferred to a tertiary care center in order to have options of having a hysterectomy or IR intervention. - Patient is started on a low-dose of peripheral Levophed given maps in the low 60s but patient continues to mentate well without significant tachycardia. - Pending transfer to outside facility for OBGYN procedure and management. Patient signed out to oncoming team pending acceptance and hopeful transfer to outside facility for consideration of IR embolization, hysterectomy or repeat D&C <Abimael Shepherd MD - Last Filed: 10/05/24 19:10> Lab Data Labs: Lab Results 10/05/24 10/05/24 Range/Units 04:30 04:40 WBC 15.2 H (4.5-11.0) X10^3/uL RBC 3.02 L (4.0-5.2) X10^6/uL Hgb 8.2 L (12.0-16.0) g/dL Hct 24.7 L (36-46) % MCV 81.7 (80-100) fL MCH 27.1 (26-34) PG MCHC 33.2 (30-36) % RDW 17.8 H (11.6-14.8) % Plt Count 290 (150-400) X10^3/uL Neut % (Auto) 90.6 H (50-75) % Lymph % (Auto) 4.3 L (25-40) % Ashley % (Auto) 4.4 (3-14) % Eos % (Auto) 0.1 L (2-4) % Baso % (Auto) 0.6 (0-2) % Neut # (Auto) 33405 H (8498-5072) /uL Lymph # (Auto) 700 L (5782-1655) /uL Ashley # (Auto) 700 (0-900) /uL Eos # (Auto) 0 (0-450) /uL Baso # (Auto) 100 (0-100) /uL Sodium 135 L (137-145) mmol/L Potassium 3.2 L (3.4-5.1) mmol/L Chloride 107 (98-107) mmol/L Carbon Dioxide 21 L (22-32) mmol/L BUN 8 (7-17) mg/dL Creatinine 0.68 (0.52-1.04) mg/dL Estimated GFR > 60 (>60) mL/min BUN/Creatinine Ratio 11.8 (6-22) Glucose 137 H (70-100) mg/dL Lactate 1.2 (0.7-2.1) mmol/L Calcium 7.8 L (8.4-10.2) mg/dL Total Bilirubin 0.2 (0.2-1.3) mg/dL AST 19 (14-36) IU/L ALT 18 (<35) IU/L Alkaline Phosphatase 86 (38-126) U/L Total Protein 5.0 L (6.3-8.2) g/dL Albumin 2.5 L (3.5-5.0) g/dL Globulin 2.5 (1.7-4.1) g/dL Albumin/Globulin Ratio 1.0 (1.0-2.8) Blood Type O Positive Antibody Screen Negative Imaging Data CT scan - abdomen/pelvis: Radiologist's Impression: Close Abdomen/Pelvis CT (Signed) Isidoro Farias - 10/05/[address] [address] [address] Scan Report Signed Patient: Alize Jaimes#: [id number] : 1985 Acct:[id number] Age/Sex: 39 / F Date of Service: 10/05/24 Loc: ED Accession Number: [id number] Procedure: CT abdomen pelvis w con Ordering Provider: Jhonny Malagon MD PROCEDURE: CT ABDOMEN PELVIS W CON INDICATIONS: retained product of conception TECHNIQUE: After the administration of intravenous contrast, axial sections acquired from the lung bases to the pubic symphysis. Coronal and sagittal reformats were performed. For radiation dose reduction, the following was used: automated exposure control, adjustment of mA and/or kV according to patient size. COMPARISON: None. FINDINGS: Lower Chest: Mild bibasilar atelectasis ABDOMEN: Liver: No solid mass. Gallbladder: No radiopaque gallstones or wall thickening. Biliary ducts: No biliary dilation. Pancreas: No ductal dilation. Spleen: Size is within normal limits. Adrenal Glands: No adrenal nodules. Kidneys and Ureters: Left renal simple cyst. Mild bilateral hydronephrosis. Stomach and Bowel: Normal colonic caliber, without significant wall thickening. Peritoneum: No abnormal intraperitoneal fluid. No free air. Ventral Wall: No significant ventral hernia. Abdominal Nodes: No retroperitoneal or mesenteric adenopathy by size criteria. Vessels: Aorta and inferior vena cava are normal in size. PELVIS: Pelvic Organs: uterus with air in the endometrial cavity. Myometrial fibroid or contraction in the posterior wall measures up to 5.4 cm. Associated myometrial hyperemia. Urinary bladder distension. Bladder: No bladder wall thickening, accounting for underdistention. Pelvic Nodes: No enlarged lymph nodes. Miscellaneous: No inguinal hernias are seen. Bones: No aggressive osseous abnormality. IMPRESSION: Fluid in air noted in the uterine endometrial canal. Consider follow-up ultrasound to evaluate for retained products of conception. Likely uterine fibroid or myometrial contraction Mild bilateral hydronephrosis Note: This final report is concordant with the preliminary after-hours interpretation provided by [employer] Approved by: Isidoro Farias M.D. on 10/05/2024 at 8:34 MDM Narrative Medical decision making narrative: INITIAL EVALUATION AND PLAN: - Send patient for CT scan to evaluate for retained placenta and any potential bleeding. - Continue antibiotics and IV fluids. - Consult with OBGYN team for further management, including potential ultrasound. - Admit for observation due to severity of previous illness. - Review and monitor lab results, including lactic acid levels. - Assess for any need for blood pressure support medications. - Monitor for any significant swelling in the legs. - Differential diagnosis includes but is not limited to: retained placenta, endometritis, sepsis, bacteremia, hemorrhage. Repeat labs drawn here in the emergency department patient is started on a L of fluid given continued soft blood pressures but no significant tachycardia. Bedside ultrasound performed that shows no free fluid in the abdomen but does show 30 shadowing within the uterus and concern for potential mass within the uterus question abscess versus primary uterine mass. CT scan of the abdomen and pelvis obtained which shows concern for retained products of conception, concern for myometrial lesion, patient has already received ceftriaxone, metronidazole at outside hospital, will receive doxycycline here after consultation with OBGYN. I reviewed patient's labs here and lactated appears to be significantly improved from prior it was 6 at outside hospital found to be 1.2 here, discussed the case with on-call OBGYN Dr. Myers she does not feel that patient should stay given multiple complicated procedures believes patient needs to be transferred to a tertiary care center in order to have options of having a hysterectomy or IR intervention. - Patient is started on a low-dose of peripheral Levophed given maps in the low 60s but patient continues to mentate well without significant tachycardia. - Pending transfer to outside facility for OBGYN procedure and management. Patient signed out to oncoming team pending acceptance and hopeful transfer to outside facility for consideration of IR embolization, hysterectomy or repeat D&C , [id number]. Sign-out from Dr. Malagon. 39-year-old female now 2 weeks with retained products of conception suspected, has had D and C procedures x2 and admission here, with post procedural bleeding bad enough to require transfusion, IV course clindamycin and gentamicin antibiotics, seen last night [facility] with abdominal pain, elevated lactate 6, IV fluids initiated, given ceftriaxone and Flagyl antibiotics, transferred here, low blood pressure, low-flow Levophed through peripheral line thus far. CT abdomen and pelvis here shows, enlargement of the uterus measuring 15 x 6.7 x 11.6 cm size. Diffuse heterogenicity of the uterus with air seen within the endometrial canal. Rounded area of heterogeneous attenuation along the mid posterior aspect of the mid uterus measuring 5.4 x 3.6 cm in size. Is indeterminate whether this is endometrial lesion or myometrial lesion. Associated hyperemia with prominent adjacent vessels extending along the right aspect of the uterus. Dr. Klein boom truck driver here was contacted, feels patient has significant post procedural risks of bleeding, prefers transfer to IR capable facility for further management, additional IV antibiotics doxycycline given here. Dr. Malagon spoke with [facility] gynecology on-call, await call back. Assumed care. 0800, Case discussed with surgical ICU attending Dr. Hatsings, who accepts patient for transfer, awaiting bed availability. No other recommendations at this time. 0830, Accepted for transfer to [facility] surgical ICU as above. Bed now available. EMS transportation being arranged, will pick 1100 here. Patient updated about plan, agrees with transfer plan. Potassium 3.2 noted, prior to IV fluids, no oral/IV repletion, we will order 20 mEq IV K riders for now. Keep NPO in case of procedure on arrival to [facility]. 1000, call back from [facility] gynecology who requests group B strep coverage, history of amoxicillin allergy noted, will add IV azithromycin, ordered. transferred to [facility] as above, via EMS ground transport Critical Care Time <Abimael Shepherd MD - Last Filed: 10/05/24 19:10> Critical Care Time Critical Care Time: Yes Total Critical Care Time: 35 Attestation: The high probability of a clinically significant, sudden or life threatening deterioration of the [genitourinary, gynecologic] system(s) required my full and direct attention, intervention and personal management. The aggregate critical care time was [35] minutes. This time is in addition to time spent performing reported procedures but includes the following: [x] Data Review and interpretation [x] Patient assessment and monitoring of vital signs [x] Documentation [x] Medication orders and management Discharge Plan Departure Patient Disposition: [facility] Clinical Impression: Uterine mass, Sepsis, endometritis, Hypokalemia Prescriptions: No Action vit-ferrous sulfat-FA 27 mg iron- 0.8 mg tablet 1 tab PO DAILY ferrous sulfate 325 mg (65 mg iron) Tablet 325 mg PO BID Qty: 60 0RF acetaminophen 325 mg Tablet 650 mg PO Q6HR PRN (Reason: Pain, Mild (1-3)) Qty: 30 0RF docusate sodium 100 mg Capsule 100 mg PO DAILY Qty: 30 0RF ibuprofen 600 mg Tablet 600 mg PO Q6HR PRN (Reason: Pain, Mild (1-3)) Qty: 30 0RF Referrals: Keisha Denton PA-C [Primary Care Provider] -
[2024-10-05 04:43] LABS: Add Manual Diff / Slide Review NO; Basophils Absolute Auto 100 /uL (0-100); Basophils Percent Auto 0.6 % (0-2); Eosinophils Absolute Auto 0 /uL (0-450); Eosinophils Percent Auto 0.1 % (2-4); Hematocrit 24.7 % (36-46); Hemoglobin 8.2 g/dL (12.0-16.0); Lymphocytes Absolute Auto 700 /uL (1100-4500); Lymphocytes Percent Auto 4.3 % (25-40); Mean Corpuscular HGB Conc 33.2 % (30-36); Mean Corpuscular Hemoglobin 27.1 PG (26-34); Mean Corpuscular Volume 81.7 fL (80-100); Monocytes Absolute Auto 700 /uL (0-900); Monocytes Percent Auto 4.4 % (3-14); Neutrophils Absolute Auto 13800 /uL (1500-7000); Neutrophils Percent Auto 90.6 % (50-75); Platelet Count 290 X10^3/uL (150-400); Red Blood Cell Count 3.02 X10^6/uL (4.0-5.2); Red Cell Distribution Width 17.8 % (11.6-14.8); White Blood Cell Count 15.2 X10^3/uL (4.5-11.0)
[2024-10-05] MEDS: LACTATED RINGERS 1,000 ML 1000 ML IV (04:45)
[2024-10-05 04:52] LABS: Lactate (Lactic Acid) 1.2 mmol/L (0.7-2.1)
[2024-10-05 04:53] LABS: Alanine Aminotransferase 18 IU/L (<35); Albumin 2.5 g/dL (3.5-5.0); Alkaline Phosphatase 86 U/L (38-126); Aspartate Aminotransferase 19 IU/L (14-36); BUN Creatinine Ratio 11.8 (6-22); Bilirubin Total 0.2 mg/dL (0.2-1.3); Blood Urea Nitrogen 8 mg/dL (7-17); Calcium 7.8 mg/dL (8.4-10.2); Carbon Dioxide 21 mmol/L (22-32); Chloride 107 mmol/L (98-107); Estimated Glomerular Filt Rate > 60 mL/min (>60); Globulin 2.5 g/dL (1.7-4.1); Glucose 137 mg/dL (70-100); HEMOLYSIS < 15 (0-50); Potassium 3.2 mmol/L (3.4-5.1); Sodium 135 mmol/L (137-145)
[2024-10-05] MEDS: DOXYCYCLINE 100 MG in SODIUM CHLORIDE 0.9% 100 ML IV (04:59)
[2024-10-05] MEDS: NOREPINEPHRINE BITARTRATE/D5W 4 MG/250 ML PLAST..BAG 34.019 MG IV (06:18)
--- NOTE | 2024-10-05 07:14 | PC.NURSE ---
Report given/care transferred to dayslaft RN
--- NOTE | 2024-10-05 08:44 | PC.NURSE ---
Nor-Epi paused, per provider verbal order, at 0840, BP 114/62. VS running every 5 mins, will trial without nor-epi and advise physician if VS are out of range. Afebrile 98.1.
[2024-10-05] MEDS: POTASSIUM CHLORIDE IN WATER 10 MEQ/100 ML PIGGYBACK 100 MEQ IV (09:32)
[2024-10-05] MEDS: AZITHROMYCIN 500 MG in DEXTROSE 5% IN WATER 250 ML 250 MG IV (10:12)
--- NOTE | 2024-10-05 10:33 | PC.NURSE ---
Provider aware pt is hypotensive, pt supine with head down, MAP goal is 65, map is met. Potassium k-rider going in L-upper arm and azithromycin going in R-arm. See MAR.
--- NOTE | 2024-10-05 11:11 | PC.NURSE ---
[facility] and potassium completed just before departure. Hypotensive but VSS.
--- NOTE | 2024-10-05 12:13 | PC.NURSE ---
Spoke to Guera Bryant for RN to RN report.
== END 2024-10-05 11:00 | disposition short-term general hospital (02) ==
PROVIDERS: Emergency Medicine; Emergency Provider Emergency Medicine; PCP Physician Assistant
DX: O86.12 Endometritis following delivery (principal); A41.9 Sepsis, unspecified organism; N85.8 Other specified noninflammatory disorders of uterus; E87.6 Hypokalemia
CPT/HCPCS: 74177; 80053; 83605; 85025; 86850; 86900; 86901; 96365; 96366; 96367; 99284; 99291; 99292; Q9967